=== PATIENT | male | born 1935 | race Caucasian/White ===

== ENCOUNTER 2020-04-20 11:18 | Inpatient (IN) | payer OTHER, MEDICARE ==
[2020-04-20 12:27] VITALS: BMI 25.0
[2020-04-20 13:12] LABS: Basophils % 0.5 % (0-1.3); Hematocrit 34.2 % (39.6-49.0); Lymphocytes % 24.1 % (15.3-44.8); MPV 9.3 fL (7.6-11.3)
[2020-04-20 13:40] LABS: ALT/SGPT 18 U/L (12-78); AST/SGOT 10 U/L (15-37); Albumin 3.2 g/dL (3.4-5.0); Alkaline Phosphatase 72 U/L (45-117); BUN Blood Urea Nitrogen 14 mg/dL (7-18); Bicarbonate 30 mmol/L (21-32); Bilirubin Direct 0.1 mg/dL (0-0.2); Bilirubin Total 0.5 mg/dL (0.2-1.0); Glucose Level 86 mg/dL (74-106); HDL Cholesterol 33 mg/dL (40-60); LDL, Direct 111 mg/dL (100-129); Potassium 4.6 mmol/L (3.5-5.1); Protein, Total 7.2 g/dL (6.4-8.2); Sodium Level 141 mmol/L (136-145)
[2020-04-20] MEDS: ENOXAPARIN 80 MG/0.8 ML SQ SCH ×2 (14:00→21:30)
--- NOTE | 2020-04-20 17:23 | RAD REPORT ---
EXAM DESCRIPTION: CT - Angio Aorta For Dissection - 04/20/2020 4:49 pm CLINICAL HISTORY: chest pain COMPARISON: None. TECHNIQUE: Dynamically enhanced 3 mm thick images of the chest, abdomen, and upper pelvis were obtai radha during administration of approximately 150mL Isovue 370 IV contrast. Sagittal and coronal reconst ruction images were generated using MIP and reviewed. Exam utilizes a protocol to evaluate entire cou rse of the aorta. All CT scans are performed using dose optimization technique as appropriate and may include automated exposure control or mA/KV adjustment according to patient size. FINDINGS: Ascending thoracic aorta is 3.6 x 3.7 cm in maximum dimension. The aortic arch descending thoracic junction shows a focal dilatation to 3.4 cm. Mid descending thoracic aorta is 3.0 x 3.0 cm. Abdominal aorta and iliac vessels are very tortuous. Atherosclerotic calcifications are present witho ut luminal narrowing, dissection or aneurysmal dilatation. Pulmonary arteries are normal as well. No cardiomegaly, pericardial thickening or pericardial effusio n. No mass or infiltrate in the lung parenchyma. No pleural thickening, pleural effusion or pneumothorax . Minimal scarring changes are present. No abnormal mediastinal or hilar mass or lymphadenopathy seen. No chest wall mass or abnormal axillar y lymphadenopathy. Celiac, SMA and renal arteries show no suspicious findings. No acute findings of the solid abdominal viscera. A 4 x 3 centimeter cyst is present in the left lobe of the liver. No mass or abnormal lymph adenopathy. No free air, free fluid or inflammatory stranding. No urinary bladder abnormality. Patie nt has pronounced diverticulosis of the sigmoid colon. No diverticulitis or acute GI process. Large h iatal hernia is present with approximately 30% of the stomach intrathoracic. Disc and bone degenerative changes are present. No acute or pathologic bone process. IMPRESSION: No dissection or acute aortic finding identifiable. Ascending aorta is 3.7 cm in maximum diameter. The aortic arch -descending aortic junction is 3.4 cm tapering to 3 cm in the mid thoracic aorta. Abdominal aorta and iliac vasculature are tortuous. No significant luminal narrowing or acute vascula r finding. No other significant findings on chest, abdomen and upper pelvis examination.
--- NOTE | 2020-04-20 21:49 | P.SSS ---
Patient History Date of Service: 04/20/20 Reason for admission: CHEST PAIN History of Present Illness: MR. RUIZ IS RELATIVELY HEALTHY GM WHO IS 84 YEARS OLD AND HAS CHEST PAIN FOR LAST TWO DAYS A REST. HE SAYS PAIN ACTUALLY DOES NOT HAPPEN WHEN HE DOES ACTIVITY. HE SAYS PAIN GET BETTER WHEN HE RAISES HIS HANDS ABOVE HEAD. THERE IS NO DIAPHORESIS AND NAUSEA BUT THERE IS SOME FATIGUE. Allergies Penicillins Allergy (Intermediate, Verified 09/27/11 20:17) Hives Home Medications: Aspirin Chewable [Aspirin Chewable*] 81 mg PO DAILY 04/20/20 - Past Medical/Surgical History Has patient received pneumonia vaccine in the past: No -: Enlarged protate -: TURP -: Abdominal hernia repair -: Umbilical hernia repair - Social History Smoking Status: Never smoker Review of Systems 10-point ROS is otherwise unremarkable Physical Examination - Vital Signs Temperature: 96 F Blood Pressure: 135/62 Pulse: 44 Respirations: 16 Pulse Ox (%): 99 - Physical Exam General: Alert, In no apparent distress HEENT: Atraumatic, PERRLA, Mucous membr. moist/pink, EOMI, Sclerae nonicteric Neck: Supple, 2+ carotid pulse no bruit, No LAD, Without JVD or thyroid abnormality Respiratory: Clear to auscultation bilaterally, Normal air movement Cardiovascular: Regular rate/rhythm, Normal S1 S2 Gastrointestinal: Normal bowel sounds, No tenderness Musculoskeletal: No tenderness Integumentary: No rashes Neurological: Normal gait, Normal speech, Normal strength at 5/5 x4 extr, Normal tone, Normal affect Lymphatics: No axilla or inguinal lymphadenopathy - Studies Laboratory Data (last 24 hrs) 04/20/20 21:11: Troponin I 0.08 H 04/20/20 12:55: Sodium 141, Potassium 4.6, BUN 14, Creatinine 0.80, Glucose 86, Total Bilirubin 0.5, AST 10 L, ALT 18, Alkaline Phosphatase 72, Triglycerides 53, Cholesterol 153, LDL Cholesterol Direct 111, HDL Cholesterol 33 L, Cholesterol/HDL Ratio 4.64 04/20/20 12:55: WBC 4.1 L, Hgb 11.8 L, Hct 34.2 L, Plt Count 153 04/20/20 12:55: Troponin I 0.06 H - Diagnosis (Problem(s)) (1) Atypical chest pain Current Visit: Yes Status: Acute Plan: AT THIS AGE CORONARY DISEASE IS POSSIBLE. EKG SHOWS NONSPECIFIC CHANGES. TROPONIN IS MILD HIGH. HE MAY GET ST TEST OF CATH DIRECTLY. PROGNOSIS IS GUARDED. CONT LOVENOX ASPIRIN OXYGEN. - Disposition Disposition: ROUTINE DISCHARGE
[2020-04-21] MEDS ORDERED: MAGNESIUM SULFATE 1 gm IVPB 1 GM/100 ML BAG IV ONE (01:32)
[2020-04-21] MEDS ORDERED: NA CHLORIDE 0.9% 250 ML ONE (01:54)
[2020-04-21 06:15] LABS: Absolute Lymphocytes (CBC) 0.9 K/uL (0.7-4.9); Basophils % 0.4 % (0-1.3); Hematocrit 29.8 % (39.6-49.0); Lymphocytes % 27.7 % (15.3-44.8); MPV 9.4 fL (7.6-11.3); RBC Red Blood Cell Count 3.14 M/uL (4.33-5.43)
[2020-04-21 06:34] LABS: Potassium 4.3 mmol/L (3.5-5.1); Troponin I 0.06 ng/mL (0.0-0.045)
[2020-04-21] MEDS: ASPIRIN 81 MG CHEWABLE TABLET PO SCH (08:15)
[2020-04-21] MEDS ORDERED: ASPIRIN 81 MG CHEWABLE TABLET PO SCH (09:00)
[2020-04-21] MEDS: METOPROLOL XL 25 MG TAB PO SCH (11:05)
[2020-04-21] MEDS: ISOSORBIDE MONO SR 30 MG TAB PO SCH (11:05)
[2020-04-21] MEDS: ENOXAPARIN 80 MG/0.8 ML SQ SCH ×2 (11:06→20:03)
--- NOTE | 2020-04-21 12:58 | P.PN ---
Subjective Date of Service: 04/21/20 Chief Complaint: CHEST PAIN Subjective: C/O voiced (LAST NIGHT HE HAD CHEST PAIN WITH EKG CHANGES ST ELEVATION AND INTERMITTENT V TACHY. DR CARDENAS WAS CALLED. HE IS PAINFREE NOW.) Review of Systems 10-point ROS is otherwise unremarkable Physical Examination - Vital Signs Temperature: 97.0 F Blood Pressure: 162/76 Pulse: 53 Respirations: 18 Pulse Ox (%): 99 - Physical Exam General: Mild distress HEENT: Atraumatic, PERRLA, EOMI Neck: Supple, JVD not distended Respiratory: Clear to auscultation bilaterally, Normal air movement Cardiovascular: Regular rate/rhythm, Normal S1 S2 Gastrointestinal: Normal bowel sounds, No tenderness Musculoskeletal: No tenderness Integumentary: No rashes Neurological: Normal speech, Normal tone, Normal affect Lymphatics: No axilla or inguinal lymphadenopathy - Studies Laboratory Data (last 24 hrs) 04/21/20 05:13: Magnesium 2.3 04/21/20 05:13: WBC 3.3 L D, Hgb 10.1 L, Hct 29.8 L, Plt Count 143 L 04/21/20 05:13: Sodium 140, Potassium 4.3, BUN 13, Creatinine 0.85, Glucose 82, Troponin I 0.06 H 04/20/20 21:11: Troponin I 0.08 H 04/20/20 12:55: Sodium 141, Potassium 4.6, BUN 14, Creatinine 0.80, Glucose 86, Total Bilirubin 0.5, AST 10 L, ALT 18, Alkaline Phosphatase 72, Triglycerides 53, Cholesterol 153, LDL Cholesterol Direct 111, HDL Cholesterol 33 L, Cholesterol/HDL Ratio 4.64 04/20/20 12:55: WBC 4.1 L, Hgb 11.8 L, Hct 34.2 L, Plt Count 153 04/20/20 12:55: Troponin I 0.06 H Medications List Reviewed: Yes Assessment And Plan - Current Problems (Diagnosis) (1) Atypical chest pain Current Visit: Yes Status: Acute Plan: AT THIS AGE CORONARY DISEASE IS POSSIBLE. EKG SHOWS NONSPECIFIC CHANGES. TROPONIN IS MILD HIGH. HE MAY GET ST TEST OF CATH DIRECTLY. PROGNOSIS IS GUARDED. CONT LOVENOX ASPIRIN OXYGEN. PAIN IS ATYPICAL BUT SEEMS TO ARISE FROM CORONARY ARTERY DISEASE HE HAD CHEST PAIN WITH ST ELEVATION LAST NIGHT DSEPITE BEING ON LOVENOX AND ASPIRIN. DR. León WAS CALLED. CATH ON THURSDAY.
[2020-04-22] MEDS: METOPROLOL XL 25 MG TAB PO SCH (05:31)
--- NOTE | 2020-04-22 07:38 | PN ---
Mr. Brantley was admitted on 04/20/2020 with chest pain. Overnight, on 04/20/2020, had ventricular t achycardia with ST changes, positive troponin. I saw him on 04/21/2020. I set him up for a heart ca theterization for early next week. Between Dr. Hoffman and I, we started the patient on metoprolol, Im dur, aspirin, Plavix, and a statin. Overnight, he had perfectly normal rhythm except for bradycardia , did not have any further ventricular tachycardia. Room air 98% O2 saturation. Blood pressure is 1 27/58. No further pain episode. Case has been discussed with his sons. We will plan for a heart ca theterization on 04/23/2020 to define his coronary anatomy. MARIS/KINDRA Voice ID: [id number] Report ID: [id number]
[2020-04-22] MEDS: ENOXAPARIN 80 MG/0.8 ML SQ SCH ×2 (08:10→20:03)
[2020-04-22] MEDS: ISOSORBIDE MONO SR 30 MG TAB PO SCH (08:10)
[2020-04-22] MEDS: ATORVASTATIN 40 MG TAB PO SCH (08:10)
[2020-04-22] MEDS: ASPIRIN 81 MG CHEWABLE TABLET PO SCH (08:10)
[2020-04-22] MEDS: CLOPIDOGREL 75 MG TABLET PO SCH (08:11)
--- NOTE | 2020-04-22 08:41 | CON ---
Date of Consultation: 04/21/2020 Reason For Consultation: Unstable angina. History Of Present Illness: Mr. Brantely is an 84-year-old white male, who was initially transferred from [facility] to our facility because of chest pain. He is relatively healthy. He had rathe r atypical chest pain. Denied any diaphoresis or nausea. Complains of fatigue. Ironically, he stat ed that his chest pain actually gets better when he exerts himself. He has seen Dr. Bañuelos about 2 t o 3 years ago and had a fairly negative cardiac workup. He does have a history of enlarged prostate, status post TURP. He has had a history of abdominal and umbilical hernia repair, but he is in [facility], otherwise very healthy. He had denied any syncope. However, while he was in the hospital, he clark d significant chest pain with intermittent ventricular tachycardia and some ST changes and we decided to keep him in the hospital. He is on aspirin, Plavix, statin, low-dose beta mario as well as Imd ur. Past Medical History: As stated above. Medication: Aspirin. Allergies: PENICILLIN. Review of Systems: Negative. Social History: Negative. Family History: Noncontributory. Physical Examination: Vital Signs: Stable except for heart rate of 47, in sinus cari. Afebrile. HEENT: Negative. Neck: Supple. No bruits. Chest: Clear to auscultation and percussion. Cardiac: Revealed a regular rhythm and rate. No murmurs, gallops, or rubs. Abdomen: Benign. Extremities: Revealed no clubbing, cyanosis, or edema. Diagnostic Data: Significant for a troponin of 0.06. He had a white count of 3.3, hemoglobin of 10. 1. His creatinine was 0.85. Impression And Plan: New-onset of unstable angina, mostly documented by telemetry strips showing jaziel rt runs of ventricular tachycardia with occasional ST changes. He has slightly elevated troponin. S ymptoms are kind of atypical only because his symptoms improve when he gets up and move around, that may have some to do with his bradycardia. Nevertheless, I think, at his age with his telemetry rhyth m strip showing ventricular tachycardia and chest pain and ST changes and elevated troponin. I think , a left heart catheterization to define his coronary anatomy is the right thing to do. The case was discussed in detail with his son. He has done much better from the telemetry standpoint after insti tution of metoprolol and Imdur. We will plan a catheterization on 04/23/2020. The patient understan ds the risk and the benefits of the procedure and he agrees to proceed. MARIS/KINDRA Voice ID: [id number] Report ID: [id number]
[2020-04-22] MEDS: POLYETHYL GLY 3350 17 GM/DOSE PO SCH (11:02)
--- NOTE | 2020-04-22 11:05 | P.PN ---
Subjective Date of Service: 04/22/20 Chief Complaint: CHEST PAIN Subjective: No new changes, Improving (HE HAS NOT HAD ANY PAIN SINCE PLAVIX.) Review of Systems 10-point ROS is otherwise unremarkable Physical Examination - Vital Signs Temperature: 97.0 F Blood Pressure: 156/65 Pulse: 56 Respirations: 16 Pulse Ox (%): 98 - Physical Exam General: Mild distress HEENT: Atraumatic, PERRLA, EOMI Neck: Supple, JVD not distended Respiratory: Clear to auscultation bilaterally, Normal air movement Cardiovascular: Regular rate/rhythm, Normal S1 S2 Gastrointestinal: Normal bowel sounds, No tenderness Musculoskeletal: No tenderness Integumentary: No rashes Neurological: Normal speech, Normal tone, Normal affect Lymphatics: No axilla or inguinal lymphadenopathy - Studies Medications List Reviewed: Yes Assessment And Plan - Current Problems (Diagnosis) (1) Atypical chest pain Current Visit: Yes Status: Acute Plan: AT THIS AGE CORONARY DISEASE IS POSSIBLE. EKG SHOWS NONSPECIFIC CHANGES. TROPONIN IS MILD HIGH. HE MAY GET ST TEST OF CATH DIRECTLY. PROGNOSIS IS GUARDED. CONT LOVENOX ASPIRIN OXYGEN. PAIN IS ATYPICAL BUT SEEMS TO ARISE FROM CORONARY ARTERY DISEASE HE HAD CHEST PAIN WITH ST ELEVATION LAST NIGHT DSEPITE BEING ON LOVENOX AND ASPIRIN. DR. León WAS CALLED. CATH ON THURSDAY. PATIENT IS STABLE AND WILL GET CATH IN AM.
[2020-04-23] MEDS: CLOPIDOGREL 75 MG TABLET PO SCH (05:33)
[2020-04-23] MEDS: METOPROLOL XL 25 MG TAB PO SCH (05:33)
[2020-04-23] MEDS: ASPIRIN 81 MG CHEWABLE TABLET PO SCH (05:33)
[2020-04-23] MEDS ORDERED: NA CHLORIDE 0.9% 50 ML ONE ×2 (06:11→08:15)
[2020-04-23] MEDS ORDERED: LIDOCAINE 1% MPF 30 ML VIAL ONE (06:11)
[2020-04-23] MEDS ORDERED: HEPA 1000U/500MLS 1,000 UNIT/500 ML BAG IV ONE (06:11)
[2020-04-23] MEDS ORDERED: ATROPINE SULF 1 MG/10 ML SYR IV ONE (06:11)
[2020-04-23] MEDS ORDERED: MIDAZOLAM HCL 2 MG/2 ML INJ ONE ×2 (06:52→07:07)
[2020-04-23] MEDS ORDERED: FENTANYL CITR 100 MCG/2 ML ONE (06:53)
[2020-04-23] MEDS ORDERED: NA CHLORIDE 0.9% 500 ML ONE (06:53)
[2020-04-23] MEDS ORDERED: NITROGLYCERIN/D5W 25 MG/250 ML BTL IV ONE (07:09)
[2020-04-23] MEDS ORDERED: NITROGLYCERIN 100 MCG/ML SYR (for cath lab use only) IV ONE (07:09)
[2020-04-23] MEDS ORDERED: CLOPIDOGREL 75 MG TABLET ONE (07:40)
[2020-04-23] MEDS: ISOSORBIDE MONO SR 30 MG TAB PO SCH (08:15)
[2020-04-23] MEDS: POLYETHYL GLY 3350 17 GM/DOSE PO SCH ×2 (08:15→16:00)
[2020-04-23] MEDS: ATORVASTATIN 40 MG TAB PO SCH (08:16)
[2020-04-23] MEDS ORDERED: NITROPRUSSIDE 50 MG VIAL IV ONE (08:21)
[2020-04-23] MEDS ORDERED: NITROGLYCERIN/D5W 50 MG/250 ML BTL IV ONE (08:21)
[2020-04-23] MEDS ORDERED: D5W 0 ML IV ONE (08:22)
--- NOTE | 2020-04-23 09:14 | OP ---
Date of Procedure: 04/23/2020 Surgeon: DOV GRAY Procedure Performed: 1.Selective coronary angiogram. 2.PCI of severe proximal and mid LAD using 2.75 x 16 mm Synergy drug-eluting stent distally, overlap ped proximally using 3.0 x 12 mm Synergy drug-eluting stent. Access: Right femoral artery 6-Iranian closed with 6-Iranian Angio-Seal. Indication: Non-ST elevation myocardial infarction. Total Sedation Time: 75 minutes. Complications: None. Bleeding: Less than 50 mL. Description Of Procedure: After risks, benefits, alternatives were explained, patient agreed to proc edure and signed informed consent. The patient was brought into the cardiac catheterization laborato ry, prepped and draped in usual sterile fashion. We used fentanyl and Versed in incremental doses to achieve adequate moderate sedation. Then we accessed right femoral artery using fluoroscopy and ult rasound guidance, placed a 6-Iranian pinnacle sheath using micropuncture kit and then we took a 6-Fren JL-4 catheter into the aortic root, engaged left main, took standard views and exchanged for 6-Rayo nc JR4 diagnostic catheter, engaged right coronary artery, took standard views and then we decided f or intervention for the LAD. Intervention Details: We gave Angiomax throughout the procedure for anticoagulation and the patient was loaded with 300 mg of Plavix on the table. We took a 6-Iranian XB left 3.0 guide into the aortic root and engaged left main. Subsequently, we took a Trevino wire into the left main coronary artery and then LAD crossing the stenosis and a wire was placed distally. Then, we pre-dilated the mid LAD lesion using a 2.5 x 50 mm Compliant balloon and then pre-dilated the proximal lesion. Subsequently, we took a 3.0 x 50 mm NC balloon and we dilated both lesions and attempted to deliver stent. Mallory r, proximal lesion was still heavily calcified and it had a significant bend and tortuosity area and we took a 3.0 x 10 mm cutting balloon, Yovana soto and pre-dilated the proximal lesion. We had to use a guide cell to deliver the balloon and for extra support. Subsequently, we took a 2.75 x 16 mm Synergy drug-eluting stent, passed into the mid LAD lesion and the stent was deployed successf ully. Then, we took 3.0 x 12 mm Synergy drug-eluting stent overlapped with the mid LAD stent and dep loyed in the proximal lesion with DARNELL-3 flow and 10% residual stenosis in the proximal lesion with g ood results. There was some spasm in the artery, responded very well to nitroglycerin. I removed th e wire and the guide out and closed the access with a 6-Iranian Angio-Seal with good hemostasis. Findings: 1.Left main proximal 30%. 2.LAD proximal 90% heavily calcified and tortuous, mid 99%, heavily calcified, then diffuse 30% dise ase. 3.D1 has ostial 80%, D2 has ostial 80% and S1 has ostial 80%. 4.Left circumflex probably totally occluded. This has good size OM branch with mid 80% heavily calc ified. 5.RCA heavily calcified vessel with proximal 80%, mid 30% to 40%, distal 60% and then diffuse stent to 20% stenosis throughout the vessel. Impression: Severe multivessel coronary artery disease, heavily calcified and tortuous, status post successful PCI of the culprit lesion of the LAD, 99% mid LAD stenosis and 90% proximal LAD stenosis a nd using stents as outlined above. Recommendation And Plan: 1.Dual antiplatelet therapy, statin, IV nitroglycerin overnight due to coronary spasm. 2.Recommend staged PCI of the RCA and OM. He might need an atherectomy from the get go. This can be planned as a staged procedure. /KINDRA Voice ID: [id number] Report ID: [id number]
[2020-04-23] MEDS ORDERED: NITROGLYCERIN/D5W 50 MG/250 ML BTL IV PRN (10:39)
--- NOTE | 2020-04-23 15:02 | ECHO ---
HEIGHT: 5 ft 8 in WEIGHT: 164 lb 8 oz DATE OF STUDY: 04/23/[address]: Altaf Arriaga MD 2-DIMENSIONAL: YES M.MODE: YES DOPPLER: YES COLOR FLOW: YES TDS: PORTABLE: DEFINITY: BUBBLE STUDY: DIAGNOSIS: CHEST PAIN CARDIAC HISTORY: CATHERIZATION: SURGERY: PROSTHETIC VALVE: PACEMAKER: MEASUREMENTS (cm) DIASTOLIC (NORMALS) SYSTOLIC (NORMALS) IVSd 1.1 (0.6-1.2) LA Diam 4.0 (1.9-4.0) LVEF 58% LVIDd 4.8 (3.5-5.7) LVIDs 3.3 (2.0-3.5) %FS 31% LVPWd 1.0 (0.6-1.2) Ao Diam 3.3 (2.0-3.7) 2 DIMENSIONAL ASSESSMENT: RIGHT ATRIUM: NORMAL LEFT ATRIUM: ENLARGED RIGHT VENTRICLE: NORMAL LEFT VENTRICLE: NORMAL TRICUSPID VALVE: MILD TRICUSPID REGURGITATION MITRAL VALVE: MILD MITRAL REGURGITATION PULMONIC VALVE: NORMAL AORTIC VALVE: NORMAL PERICARDIAL EFFUSION: NONE AORTIC ROOT: NORMAL LEFT VENTRICULAR WALL MOTION: NORMAL DOPPLER/COLOR FLOW: NORMAL COMMENTS: NORMAL LEFT VENTRICULAR EJECTION FRACTION 55-60% WITH NORMAL WALL MOTION. GRADE ONE DIASTOLIC DYSFUNCTION. MILD TRICUSPID REGURGITATION. TECHNOLOGIST: DOLORES ORTIZ
[2020-04-23] MEDS ORDERED: POLYETHYL GLY 3350 17 GM/DOSE ONE (16:24)
[2020-04-23] MEDS: AMLODIPINE 5 MG TAB PO SCH (16:35)
[2020-04-23] MEDS ORDERED: AMLODIPINE 5 MG TAB ONE (16:53)
--- NOTE | 2020-04-23 20:55 | P.PN ---
Subjective Date of Service: 04/23/20 Chief Complaint: CHEST PAIN ANGIOGRAM DONE TODAY. TWO STENTS PLACED. NOW IN ICU FOR OBSERVATION IV NTG DRIP. BP CONTROL. Physical Examination - Vital Signs Temperature: 98.1 F Blood Pressure: 128/60 Pulse: 64 Respirations: 22 Pulse Ox (%): 97 - Studies Medications List Reviewed: Yes Assessment And Plan - Current Problems (Diagnosis) (1) Atypical chest pain Current Visit: Yes Status: Acute Plan: AT THIS AGE CORONARY DISEASE IS POSSIBLE. EKG SHOWS NONSPECIFIC CHANGES. TROPONIN IS MILD HIGH. HE MAY GET ST TEST OF CATH DIRECTLY. PROGNOSIS IS GUARDED. CONT LOVENOX ASPIRIN OXYGEN. PAIN IS ATYPICAL BUT SEEMS TO ARISE FROM CORONARY ARTERY DISEASE HE HAD CHEST PAIN WITH ST ELEVATION LAST NIGHT DSEPITE BEING ON LOVENOX AND ASPIRIN. DR. León WAS CALLED. CATH ON THURSDAY. PATIENT IS STABLE AND WILL GET CATH IN AM. (2) Coronary arteriosclerosis after percutaneous transluminal coronary angioplasty (PTCA) Current Visit: Yes Status: Acute Plan: TWO STENTS PLACED. PLAVIX, LIPITOR NORVASC BP WENT HIGH. Orders (last 24 hrs) 04/23/20 09:00 Polyethyl Gly 3350 [Glycolax] 17 gm PO DAILY 04/24/20 09:00 Amlodipine [Norvasc] 5 mg PO DAILY
[2020-04-24] MEDS: METOPROLOL XL 25 MG TAB PO SCH (05:07)
[2020-04-24 06:11] VITALS: TEMP 97.6
[2020-04-24 08:00] VITALS: O2SAT 98
[2020-04-24] MEDS: ATORVASTATIN 40 MG TAB PO SCH (08:09)
[2020-04-24] MEDS: CLOPIDOGREL 75 MG TABLET PO SCH (08:09)
[2020-04-24] MEDS: POLYETHYL GLY 3350 17 GM/DOSE PO SCH (08:09)
[2020-04-24] MEDS ORDERED: ATORVASTATIN 20 MG TAB ONE (08:12)
[2020-04-24] MEDS ORDERED: CLOPIDOGREL 75 MG TABLET ONE (08:12)
[2020-04-24] MEDS ORDERED: ASPIRIN 81 MG CHEWABLE TABLET ONE (08:12)
[2020-04-24] MEDS ORDERED: POLYETHYL GLY 3350 17 GM/DOSE ONE (08:13)
[2020-04-24] MEDS: ASPIRIN 81 MG CHEWABLE TABLET PO SCH (08:21)
[2020-04-24] MEDS: ISOSORBIDE MONO SR 30 MG TAB PO SCH (08:22)
[2020-04-24] MEDS: AMLODIPINE 5 MG TAB PO SCH (08:22)
[2020-04-24] MEDS ORDERED: AMLODIPINE 5 MG TAB ONE (08:29)
[2020-04-24 10:24] VITALS: BP 108/56
--- NOTE | 2020-04-24 20:58 | P.DS ---
Admission Date: 04/20/20 Discharge Date: 04/24/20 Disposition: ROUTINE DISCHARGE Discharge Condition: FAIR Reason for Admission: CHEST PAIN - Problems (1) Atypical chest pain Status: Acute (2) Coronary arteriosclerosis after percutaneous transluminal coronary angioplasty (PTCA) Status: Acute Brief History of Present Illness: MR. RUIZ IS RELATIVELY HEALTHY GM WHO IS 84 YEARS OLD AND HAS CHEST PAIN FOR LAST TWO DAYS A REST. HE SAYS PAIN ACTUALLY DOES NOT HAPPEN WHEN HE DOES ACTIVITY. HE SAYS PAIN GET BETTER WHEN HE RAISES HIS HANDS ABOVE HEAD. THERE IS NO DIAPHORESIS AND NAUSEA BUT THERE IS SOME FATIGUE. Hospital Course: MR. RUIZ HAS HAD TWO STENTS FOR CAD. HE IS STABLE ON ASPIRIN, PLAVIX, LIP ITOR AND METOPROLOL. HIS BP WENT LOW WITH NORVASC. HE IS STABLE AT DISCHARGE. Vital Signs/Physical Exam: Temp Pulse Resp BP Pulse Ox 97.6 F 71 20 108/56 L 98 04/24/20 04:00 04/24/20 09:30 04/24/20 09:30 04/24/20 09:30 04/24/20 09:30 General: Alert, In no apparent distress HEENT: Atraumatic, PERRLA, EOMI Neck: Supple, JVD not distended Respiratory: Clear to auscultation bilaterally, Normal air movement Cardiovascular: Regular rate/rhythm, Normal S1 S2 Gastrointestinal: Normal bowel sounds, No tenderness Musculoskeletal: No tenderness Integumentary: No rashes Neurological: Normal speech, Normal tone, Normal affect Lymphatics: No axilla or inguinal lymphadenopathy Laboratory Data at Discharge: WBC 3.3 K/uL (4.3-10.9) L D 04/21/20 05:13 Hgb 10.1 g/dL (13.6-17.9) L 04/21/20 05:13 Hct 29.8 % (39.6-49.0) L 04/21/20 05:13 Plt Count 143 K/uL (152-406) L 04/21/20 05:13 Sodium 140 mmol/L (136-145) 04/21/20 05:13 Potassium 4.3 mmol/L (3.5-5.1) 04/21/20 05:13 BUN 13 mg/dL (7-18) 04/21/20 05:13 Creatinine 0.85 mg/dL (0.55-1.3) 04/21/20 05:13 Glucose 82 mg/dL (74-106) 04/21/20 05:13 Magnesium 2.3 mg/dL (1.8-2.4) 04/21/20 05:13 Total Bilirubin 0.5 mg/dL (0.2-1.0) 04/20/20 12:55 AST 10 U/L (15-37) L 04/20/20 12:55 ALT 18 U/L (12-78) 04/20/20 12:55 Alkaline Phosphatase 72 U/L (45-117) 04/20/20 12:55 Troponin I 0.06 ng/mL (0.0-0.045) H 04/21/20 05:13 Triglycerides 53 mg/dL (<150) 04/20/20 12:55 Cholesterol 153 mg/dL (<200) 04/20/20 12:55 LDL Cholesterol Direct 111 mg/dL (100-129) 04/20/20 12:55 HDL Cholesterol 33 mg/dL (40-60) L 04/20/20 12:55 Cholesterol/HDL Ratio 4.64 04/20/20 12:55 Home Medications: Aspirin Chewable [Aspirin Chewable*] 81 mg PO DAILY 04/20/20 Atorvastatin Calcium [Lipitor] 80 mg PO BEDTIME #30 tablet 04/24/20 Clopidogrel Bisulfate [Plavix] 75 mg PO DAILY #30 tablet 04/24/20 Metoprolol Succinate [Toprol Xl*] 25 mg PO DAILY #30 tab 04/24/20 New Medications: Atorvastatin Calcium [Lipitor] 80 mg PO BEDTIME #30 tablet Clopidogrel Bisulfate [Plavix] 75 mg PO DAILY #30 tablet Metoprolol Succinate [Toprol Xl*] 25 mg PO DAILY #30 tab
== END 2020-04-24 09:50 | disposition home or self-care (01) | DRG 247 ==
LOC: 2ND 11:18 → OBSVTOIN 11:18 → ERHOLD 04-23 13:31
PROVIDERS: ADMIT Internal Medicine; ATTEND Internal Medicine
PROC: 027035Z Dilation of Coronary Artery, One Artery with Two Drug-eluting Intraluminal Devices, Percutaneous Approach (ICD-10-PCS; principal; 2020-04-23)
PROC: 4A023N7 Measurement of Cardiac Sampling and Pressure, Left Heart, Percutaneous Approach (ICD-10-PCS; 2020-04-23)
PROC: B2111ZZ Fluoroscopy of Multiple Coronary Arteries using Low Osmolar Contrast (ICD-10-PCS; 2020-04-23)
DX: I25.110 Atherosclerotic heart disease of native coronary artery with unstable angina pectoris (principal); I47.2 Ventricular tachycardia; Z88.0 Allergy status to penicillin; Z79.82 Long term (current) use of aspirin; Z79.02 Long term (current) use of antithrombotics/antiplatelets; Z79.899 Other long term (current) drug therapy
CPT/HCPCS: 36415; 71275; 74175; 80048; 80061; 80076; 83735; 84484; 85025; 85347; 93005; 93306; 93454; C1725; C1760; C1877; C1893; C9600; J0583; J1644; J2250; J3010; J3475; J7040; J7050; J7060; Q9967

== ENCOUNTER 2020-08-27 07:27 | Day surgery (SDC) | payer OTHER, MEDICARE ==
[2020-08-23 16:36] LABS: Absolute Lymphocytes (CBC) 0.7 K/uL (0.7-4.9); Basophils % 0.4 % (0-1.3); Hematocrit 35.2 % (39.6-49.0); Lymphocytes % 17.3 % (15.3-44.8); MPV 9.2 fL (7.6-11.3); RBC Red Blood Cell Count 3.72 M/uL (4.33-5.43)
[2020-08-23 16:37] LABS: Protime INR 1.09
--- NOTE | 2020-08-23 17:32 | RAD REPORT ---
EXAM DESCRIPTION: RAD - Chest Pa And Lat (2 Views) - 08/23/2020 5:10 pm CLINICAL HISTORY: PREOP, pending coronary stenting COMPARISON: Two view chest July 2015 TECHNIQUE: Frontal and lateral views of the chest were obtained. FINDINGS: The lungs are normal volume with scattered fibro emphysematous lung changes seen. No failu re, infiltrate or acute cardiopulmonary finding. Interstitial pattern matches comparison. Diaphragm i s flattened. Heart size is normal and central vasculature is within normal limits. No pleural effu ananth or pneumothorax seen. No acute bony finding noted. No aortic abnormality. IMPRESSION: COPD changes are present without acute cardiopulmonary finding. No significant change from comparison study.
--- NOTE | 2020-08-24 15:03 | EKG ---
Test Date: 2020-08-23 Test Time: 15:02:20 Entry Level Electrician: NAFISA MEASUREMENT RESULTS: Intervals: Rate: 59 WA: 170 QRSD: 82 QT: 416 QTc: 411 [place]kins: P: 76 WA: 170 QRS: 54 T: 62 INTERPRETIVE STATEMENTS: Sinus bradycardia with sinus arrhythmia ST abnormality, possible digitalis effect Abnormal ECG Compared to ECG 04/21/2020 01:12:04 Possible ischemia no longer present ST (T wave) deviation still present Electronically Signed On 08-24-20 15:01:54 CDT by Altaf Arriaga
[2020-08-27] MEDS ORDERED: NA CHLORIDE 0.9% 500 ML ONE (07:47)
[2020-08-27 08:12] VITALS: TEMP 96.3
[2020-08-27] MEDS ORDERED: MIDAZOLAM HCL 2 MG/2 ML INJ ONE ×2 (08:28→08:54)
[2020-08-27] MEDS ORDERED: NITROGLYCERIN/D5W 0 MG/0 ML BTL IV ONE (08:29)
[2020-08-27] MEDS ORDERED: ATROPINE SULF 1 MG/10 ML SYR IV ONE (08:29)
[2020-08-27] MEDS ORDERED: FENTANYL CITR 100 MCG/2 ML ONE (08:29)
[2020-08-27] MEDS ORDERED: NA CHLORIDE 0.9% 0 ML ONE (08:30)
[2020-08-27 15:46] VITALS: BP 142/60; O2SAT 98
== END 2020-08-27 15:35 | disposition home or self-care (01) ==
LOC: CCL 07:27
DX: I25.110 Atherosclerotic heart disease of native coronary artery with unstable angina pectoris (principal); Z53.8 Procedure and treatment not carried out for other reasons; I65.23 Occlusion and stenosis of bilateral carotid arteries; I10 Essential (primary) hypertension; R00.1 Bradycardia, unspecified; E78.2 Mixed hyperlipidemia; Z88.0 Allergy status to penicillin; Z20.822 Contact with and (suspected) exposure to COVID-19
CPT/HCPCS: 93005; 85025; 80048; 36415; 85610; 85730; 71046; U0003; J2250 ×2; J3010; J7040; J0583

== ENCOUNTER 2020-09-03 08:24 | Day surgery (SDC) | payer OTHER, MEDICARE ==
[2020-09-03] MEDS ORDERED: NA CHLORIDE 0.9% 500 ML ONE (08:47)
[2020-09-03] MEDS ORDERED: HEPA 1000U/500MLS 1,000 UNIT/500 ML BAG IV ONE (10:09)
[2020-09-03] MEDS ORDERED: MIDAZOLAM HCL 2 MG/2 ML INJ ONE ×2 (10:14→10:37)
[2020-09-03] MEDS ORDERED: NA CHLORIDE 0.9% 0 ML ONE (10:14)
[2020-09-03] MEDS ORDERED: ATROPINE SULF 1 MG/10 ML SYR IV ONE (10:14)
[2020-09-03] MEDS ORDERED: FENTANYL CITR 100 MCG/2 ML ONE (10:14)
[2020-09-03] MEDS ORDERED: NITROGLYCERIN 100 MCG/ML SYR (for cath lab use only) IV ONE (10:14)
[2020-09-03] MEDS ORDERED: NITROGLYCERIN/D5W 0 MG/0 ML BTL IV ONE (10:14)
[2020-09-03 11:21] VITALS: TEMP 97.5
--- NOTE | 2020-09-03 11:22 | OP ---
Date of Procedure: 09/03/2020 Surgeon: Altaf Arriaga MD Powderman: Alfie Betancur. Procedure: Heart catheterization with selective coronary arteriogram. Indication: Unstable angina, chest pain, and history of coronary artery disease. Procedure In Detail: In the laborer road, he was prepped and draped in routine sterile fashion. A 6-Rayo formerly [facility] sheath introduced in the right common femoral artery successfully using the Seldinger technique a nd 10 cc of Xylocaine. A JR4 catheter was introduced first secondary to severe tortuosity in the chandra ac arteries and the distal aorta. This was used to cannulate the RCA, which showed some [id number] rate disease in the proximal and distal RCA, probably 30% to 40%. The JL-4 was used then to inject t he left main and that showed about a 50%, ostial left main is 50%, ostial LAD is 70%, in-stent resten osis in the proximal to mid LAD, normal circumflex. He was right dominant. There were no complicati ons. Blood Loss: 5 mL. Postoperative Diagnosis: Severe coronary artery disease. Plan: I will plan for him to have a MONTGOMERY to the LAD. Anesthesia: Total conscious sedation was 45 minutes. MARIS/MODAndrea Voice ID: [id number] Report ID: [id number]
[2020-09-03 13:11] VITALS: BP 113/56; O2SAT 99
== END 2020-09-03 13:20 | disposition home or self-care (01) ==
LOC: CCL 08:24
DX: I25.110 Atherosclerotic heart disease of native coronary artery with unstable angina pectoris (principal); T82.855A Stenosis of coronary artery stent, initial encounter; I65.23 Occlusion and stenosis of bilateral carotid arteries; I11.0 Hypertensive heart disease with heart failure; E78.2 Mixed hyperlipidemia; R00.1 Bradycardia, unspecified
CPT/HCPCS: 93454; C1893; J2250 ×2; J3010; J7040; J1644; J0583

== ENCOUNTER 2021-05-21 15:50 | Emergency (ER) | payer OTHER, MEDICARE ==
--- OUTSIDE RECORDS SUMMARY | 2021-05-21 15:54 | XMS REPORT | Continuity of Care Document ---
:[address] [facility] t Address [address] [place] [address] Care Team Providers Name Role Phone Yasmin Arcos Primary Care Physician ABRAM HASSAN Attending Clinician Unavailable Nurse, Pob Immunization Attending Clinician Unavailable Hadley Hernandez DO Attending Clinician HADLEY HERNANDEZ Attending Clinician Unavailable Les LOPEZ Attending Clinician Doctor Unassigned, Name Attending Clinician Unavailable ABRAM HASSAN Admitting Clinician Unavailable Payers Payer Name Policy Type Policy Number Effective Date Expiration Date S evangelina MEDICARE PART A \T\ [id number] 1998 B 00:00:00 [facility] [id number] 2018 MEDICARE SUPPLEMENT 00:00:00 MEDICARE A B [id number] 1998 00:00:00 [facility] [id number] 2020 HEALTHCARE 00:00:00 Problems Condition Condition Condition Status Onset Resolution Last Treating Co mments Source Name Details Category Date Date Treatment Clinician Date Sinus Sinus Disease Active Univers bradycardi bradycardi 8- it y of a a 00:00: [place] 00 Medical Branch Pneumonia Pneumonia Disease Active Uni vers due to due to 12-31 ity of COVID-19 COVID-19 00:00: [place] virus virus 00 Medical Branch Acute on Acute on Disease Active 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:00: Rowena mosqueda 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 00:00: [place] involving involving 00 Medi zuleima coronary 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 of kasaan kasaan heart heart without without angina angina pectoris pectoris 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 8 ity of natriure[place] c peptide c peptide 00 Medi zuleima (BNP) (BNP) Branch level level Essential Essential Disease Active Uni vers hypertensi hypertensi 12-30 it y of on on 00:00: [place] 00 Medical Branch Dyslipidem Dyslipidem Disease Active U nivers ia ia 12-30 ity of 00:00: Medical Branch 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 00 Medical fibrillati fibrillati Br anch on on Acute Acute Disease Active [facility] [facility] respirator respirator 7 it y of y failure y failure 00:00: Rowena mosqueda with with 00 Medical hypoxia hypoxia Branch Heart Problem Resolve 2020-11-22 Paras deonna disease d 00:41:47 l (disorder) Heart Melanie nn disease (disorder) Resolved Problem 11/22/2020 Medical Group Hyperchole Problem Resolve 2020-11-22 Memoria sterolemia d 00:41:47 l (disorder) Mamadou n Hyperchole sterolemia (disorder) Resolved Problem 11/22/2020 Medical Group Hypertensi Problem Resolve 2020-11-22 Memoria ve d 00:41:47 l disorder, Eyal systemic Hypertensi arterial ve (disorder) disorder, systemic arterial (disorder) Resolved Problem 11/22/2020 Medical Group Allergies, Adverse Reactions, Alerts Allergy Allergy Status Severity Reaction(s) Onset Inactive Treating Comm ents Source Name Type Date Date Clinician [facility] Allergy Active [facility]ives [facility] Drug Active Hives Univers INS Class 5-15 ity of 00:00: [place] 00 Medical Branch Penicill Propensi Active Hives Univer s ins ty to 5-15 ity of adverse 00:00: [place] reaction 00 Medical s Branch NO KNOWN Allergy Active [facility]ERGIE S penicill penicill Active Memori a ins ins l [place] Social History Social Habit Start Date Stop Date Quantity Comments Source Alcohol intake 2019-01-11 2019-01-11 Current University of 00:00:00 00:00:00 non-drinker of [facility] alcohol Branch (finding) Tobacco use and 2018-10-13 2018-10-13 Never used Universit y of exposure 00:00:00 00:00:00 [facility] Sex Assigned At [birth year] Universit y of 00:00:00 00:00:00 [facility] Smoking Status Start Date Stop Date Source Social History [facility] Medications Ordered Filled Start Stop Current Ordering Indication Dosage Frequency Signature Comments Components Source Medication Medication Date Date Medication? Clinician (SIG) Name Name mirabegron Yes Take by Uni vers (MYRBETRIQ) 8-13 mouth ity of 25 mg 18:08: daily. [place] tablet Medical Branch aspirin 81 Yes 81mg Take 81 mg U nivers mg chewable 8-13 by mouth ity of tablet 18:08: daily. [place] [address] Medical Branch rosuvastati Yes 20mg Take 20 mg Univers n 20 mg 8-13 by mouth ity of tablet 18:08: at [place] [address] bedtime. Medical Branch ferrous Yes 325mg Take 325 Unive rs sulfate 8-13 mg by ity of (IRON) 325 18:08: mouth [place] mg (65 mg 42 daily. Medical iron) Branch tablet folic Yes Take by Univers acid/multiv 8-13 mouth. ity of it-min/lute 18:08: [place] in (CENTRUM 42 Medical SILVER Branch ORAL) albuterol Yes 2{puff} Inhale 2 U nivers 90 8-13 Puffs ity of mcg/actuati 18:08: every 6 Jack as on inhaler 42 (six) Medical hours as Branch needed for Wheezing or Shortness of Breath. ascorbic Yes [id number] 500mg Take 1 Univers acid, 8-13 [id number] tablet by ity of vitamin C, 00:00: mouth [place] 500 mg 00 daily. Medical tablet Branch cholecalcif Yes [id number] 1000U Take 1 Univers shannon, 01-11 [id number] tablet by ity of vitamin D3, 00:00: mouth [place] 25 mcg 00 daily. Medical (1,000 Branch unit) tablet magnesium Yes [id number] 30mL Take 30 mL Univers hydroxide 8 [id number] by mouth 3 i ty of 400 mg/5 mL 00:00: (three) Jack as suspension 00 times Medical daily as Branch needed for Constipati on. 24 HR Yes 25 mg = 1 Memoria mirabegron 6-21 tab, PO, l 25 MG 13:52: Daily, # [place] Extended 00 30 tab, 5 Release Refill(s), Tablet Pharmacy: [Kassandra] [id number], 172.72, cm, 11/19/20 8:29:00 CDT, Height, 68.636, kg, 11/19/20 8:29:00 CDT, Weight Immunizations Ordered Filled Immunization Date Status Comments [facility] e Immunization Name Name SARS-COV-2 COVID-19 2021-04-29 Completed Unive rsity of MODERNA BOOSTER 00:00:00 [place] Med ical VACCINE Branch Vital Signs Vital Name Observation Time Observation Value Comments Source HEIGHT 2020-09-13 06:00:00 172.7 cm WEIGHT 2020-09-13 06:00:00 72.712 kg HEIGHT 2020-09-12 09:15:00 172.7 cm WEIGHT 2020-09-12 09:15:00 72.122 kg HEIGHT 2021-04-16 09:12:00 172.7 cm WEIGHT 2021-04-16 09:12:00 72.712 kg HEIGHT 2021-04-16 09:12:00 172.7 cm WEIGHT 2021-04-16 09:12:00 72.712 kg HEIGHT 2021-04-09 09:49:00 172.7 cm WEIGHT 2021-04-09 09:49:00 71.215 kg HEIGHT 2021-04-09 09:49:00 172.7 cm WEIGHT 2021-04-09 09:49:00 71.215 kg HEIGHT 2020-09-13 06:00:00 172.7 cm WEIGHT 2020-09-13 06:00:00 72.712 kg HEIGHT 2020-09-12 09:15:00 172.7 cm WEIGHT 2020-09-12 09:15:00 72.122 kg HEIGHT 2020-09-10 09:40:00 172.7 cm WEIGHT 2020-09-10 09:40:00 72.122 kg HEIGHT 2020-09-10 09:40:00 172.7 cm WEIGHT 2020-09-10 09:40:00 72.122 kg HEIGHT 2020-09-04 10:00:00 174 cm WEIGHT 2020-09-04 10:00:00 73.619 kg Height 2020-11-19 13:29:00 172.72 cm [facility] Weight 2020-11-19 13:29:00 [facility] BMI Calculated 2020-11-19 13:29:00 Lulu Astudillo Procedures Procedure Date / Time Performing Clinician Source Performed SARS-COV-2 COVID-19 2021-04-29 17:45:38 Doctor Unassigned, No [facility] [place] VACCINE Name [facility] BOOSTER,0.25ML,IM (MODERNA) Hernia repair [facility] TURP - Transurethral [facility] resection of prostate CABG - Coronary artery [facility] bypass graft Encounters Start End Encounter Admission Attending Care Care Encounter Source Date/Time Date/Time Type Type Clinicians Facility Department ID 2021-04-01 Emergency [facility] [id number] Univers 12:11:21 [facility] 2021-03-09 Inpatient KEVIN HASSAN Surgery [id number] [facility] 12:22:56 [place] 2021-04-29 2021-04-29 Imm/Inj Nurse, Adc Pob Immunization [facility] [id number] Univers 10:29:54 10:30:03 [id number] Rowena WALKER [id number] Ne dical [address] 2021-04-29 2021-04-29 Outpatient Gene HERNANDEZ [facility] [id number] Univers 10:30:00 10:30:00 MARQUIS itharjit [facility] 2021-04-16 2021-04-16 Outpatient [facility] [id number] 08:49:00 23:59:00 [place] 2021-04-16 2021-04-16 Inpatient KEVIN HURT Surgery [id number] [facility] 08:49:00 15:08:00 [place] 2021-04-09 2021-04-09 Outpatient MARCO ANTONIO BROWN [facility] [id number] [facility] 13:30:10 23:59:00 2021-04-09 2021-04-09 Outpatient KEVIN HURT [facility] [id number] [facility] 10:23:03 10:23:03 N[place] 2021-02-18 2021-02-[address] [facility] [id number] Memoria 08:30:00 08:30:00 02 l Eyal 2020-11-19 2020-11-20 Outpatient nullFlavo MG Multi 55 [id number] Memoria 13:30:00 04:59:59 r Specialty 01 l [facility] 2020-10-03 2020-10-03 Outpatient KEVIN HURT [facility] [id number] [facility] 00:00:00 00:00:00 2020-09-12 2020-09-12 Outpatient MARCO ANTONIO MAX [facility] [id number] [facility] 00:00:00 00:00:00 2020-09-10 2020-09-10 Outpatient KEVIN HASSAN [facility] [id number] [facility] 00:00:00 00:00:00 [place] 2020-09-10 2020-09-10 Outpatient MARCO ANTONIO MAX [facility] [id number] [facility] 00:00:00 00:00:00 2020-09-04 2020-09-04 Outpatient KEVIN HURT [facility] [id number] [facility] 00:00:00 00:00:00 [place] 2019-01-11 2019-01-11 Office TED Saldana [id number] 08:26:40 08:50:41 Visit Kaylene Mane [id number] Jerilyn 4.2.7.2.686 Jane [id number] [address] 2019-01-10 2019-01-10 Orders Doctor CHAVEZ [id number] 00:00:00 00:00:00 Only Unassigned, AMIE 350.1.13.10 [facility] 4.2.7.2.686 [id number] Results Test Description Test Time Test Comments Results Result Comments Source CALCIUM, IONIZED 2021-04-16 13:46:30 Test Item Value Reference Range Interpretation Comme nts CALCIUM IONIZED (BEAKER) (test code = 698) 1.07 mmol/L 1.12-1.27 L PH, BLOOD (BEAKER) (test code = 1810) 7.40 HGB/HCT (H&H) - STAT [id number] 13:46:29 Test Item Value Reference Range Interpretation Comments HEMOGLOBIN (BEAKER) (test code = 12.1 GM/DL 13.0-16.8 L 410) HEMATOCRIT (BEAKER) (test code = 36.0 % 40.0-50.0 L 411) POTASSIUM-STAT [id number] 13:46:06 Test Item Value Reference Range Interpretation Comments POTASSIUM (BEAKER) (test code = 4.4 meq/L 3.6-5.5 379) GLUCOSE-STAT [id number] 13:46:04 Test Item Value Reference Range Interpretation Comments GLUCOSE RANDOM (BEAKER) (test code 110 mg/dL 70-110 = 652) SODIUM NA-STAT [id number] 13:46:04 Test Item Value Reference Range Interpretation Comments SODIUM (BEAKER) (test code = 381) 137 meq/L 136-145 SARS-COV2/RT-PCR ([facility])2021-04-09 20:35:48 Test Item Value Reference Range Interpretation Comments SARS-COV2/RT-PCR (test code = Negative Negative [id number]) Negative result for this test determines that SARS-CoV-2 RNA was not present in the specimen above the Limit of Detection (LOD). However, Negative results do not preclude SARS-CoV-2 infection and should not be used as the sole basis for treatment or patient management decisions. Negative results must be combined with clinical observations, patient history, and epidemiological information. A false negative result may occur if a specimen is improperly collected, transported, or handled. A false negative result should be considered if patient's recent exposures or clinical presentation indicate that COVID-19 (SARS-CoV-2) is likely and diagnostic tests for other causes of illness are negative. Re-testing should be considered in cases of suspected false negatives.The limit of detection for this assay is 100 copies/mL.This SARS-CoV-2 test is a real-time RT_PCR test intended for the qualitative detection of nucleic acid from SARS-CoV-2 in a nasopharyngeal swab specimen collected from individuals suspected of COVID-19 by their healthcare provider.This test has not been Food and Drug Administration (FDA) cleared or approved. This is a modified version of an approved Emergency Use Authorization (EUA) and is in the process of review by the FDA. Once authorized by the FDA, the issued EUA will be effective until the declaration that circumstances exist justifying the authorization of the emergency use of in vitro diagnostic tests for detection and/or diagnosis of COVID-19 is terminated under Section 564(b)(2) of the Act or the EUA is revoked under Section 564(g) of the Act.Testing was performedusing the Parekh SARS-CoV-2 assay.Fact Sheet for Healthcare Providers:https://www.[employer].ScreenHits/karla/RT SARS-CoV-2 HCP Fact Sheet 51- 273365.pdfFact Sheet for Healthcare Patients:https://www.[employer].parekh/karla/RT SARS-CoV-2 Patient Fact Sheet EN 51-820560S4.pdfCOMPREHENSIVE METABOLIC PANEL 2021-04-09 11:26:31 Test Item Value Reference Range Interpretation Comments TOTAL PROTEIN 7.5 gm/dL 6.0-8.3 (BEAKER) (test code = 770) ALBUMIN (BEAKER) 3.6 g/dL 3.5-5.0 (test code = 1145) ALKALINE PHOSPHATASE 91 U/L 40-150 (BEAKER) (test code = 346) BILIRUBIN TOTAL 0.5 mg/dL 0.2-1.2 (BEAKER) (test code = 377) SODIUM (BEAKER) (test 140 meq/L 136-145 code = 381) POTASSIUM (BEAKER) 4.3 meq/L 3.5-5.1 (test code = 379) CHLORIDE (BEAKER) 105 meq/L 98-107 (test code = 382) CO2 (BEAKER) (test 26 meq/L 22-29 code = 355) BLOOD UREA NITROGEN 18 mg/dL 7-21 (BEAKER) (test code = 354) CREATININE (BEAKER) 0.88 mg/dL 0.57-1.25 (test code = 358) GLUCOSE RANDOM 91 mg/dL 70-105 (BEAKER) (test code = 652) CALCIUM (BEAKER) 9.3 mg/dL 8.4-10.2 (test code = 697) AST (SGOT) (BEAKER) 17 U/L 5-34 (test code = 353) ALT (SGPT) (BEAKER) 21 U/L 6-55 (test code = 347) EGFR (BEAKER) (test 82 mL/min/1.73 ESTIMA SAM GFR IS code = 1092) sq m NOT ACCURATE CREATININE CLEARANCE IN PREDICTING GLOMERULAR FILTRATION RATE . ESTIMATED GFR I S NOT APPLICABLE FOR DIALYSIS PATIEN TS. Powder Room Attendant ID - DAVID MPROTHROMBIN [id number] 11:13:50 Test Item Value Reference Range Interpretation Comments PROTIME (BEAKER) 13.7 seconds 11.9-14.2 (test code = 759) INR (BEAKER) (test 1.07 See_Comment [Automat ed message] code = 370) The system [employer] generated this result transmitted ref erence range: <=5.90. The reference range was not used to int erpret this result as normal/abnormal . RECOMMENDED COUMADIN/WARFARIN INR THERAPY RANGESSTANDARD DOSE: 2.0 - 3.0 Includes: PROPHYLAXIS forvenous thrombosis, systemic embolization; TREATMENT for venous thrombosis and/or pulmonary embolus.HIGH RISK: Target INR is 2.5-3.5 for patients with mechanical heart valves.CBC W/PLT COUNT & AUTO DIFFERENTIAL 2021-04-09 11:09:41 Test Item Value Reference Range Interpretation Comments WHITE BLOOD CELL COUNT (BEAKER) 5.0 K/ L 3.5-10.5 (test code = 775) RED BLOOD CELL COUNT (BEAKER) 3.94 M/ L 4.63-6.08 L (test code = 761) HEMOGLOBIN (BEAKER) (test code = 12.2 GM/DL 13.7-17.5 L 410) HEMATOCRIT (BEAKER) (test code = 38.1 % 40.1-51.0 L 411) MEAN CORPUSCULAR VOLUME (BEAKER) 96.7 fL 79.0-92.2 H (test code = 753) MEAN CORPUSCULAR HEMOGLOBIN 31.0 pg 25.7-32.2 (BEAKER) (test code = 751) MEAN CORPUSCULAR HEMOGLOBIN CONC 32.0 GM/DL 32.3-36.5 L (BEAKER) (test code = 752) RED CELL DISTRIBUTION WIDTH 14.6 % 11.6-14.4 H (BEAKER) (test code = 412) PLATELET COUNT (BEAKER) (test 179 K/CU MM 150-450 code = 756) MEAN PLATELET VOLUME (BEAKER) 10.2 fL 9.4-12.4 (test code = 754) NUCLEATED RED BLOOD CELLS 0 /100 WBC 0-0 (BEAKER) (test code = 413) NEUTROPHILS RELATIVE PERCENT 60 % (BEAKER) (test code = 429) LYMPHOCYTES RELATIVE PERCENT 22 % (BEAKER) (test code = 430) MONOCYTES RELATIVE PERCENT 12 % (BEAKER) (test code = 431) EOSINOPHILS RELATIVE PERCENT 5 % (BEAKER) (test code = 432) BASOPHILS RELATIVE PERCENT 0 % (BEAKER) (test code = 437) NEUTROPHILS ABSOLUTE COUNT 2.96 K/ L 1.78-5.38 (BEAKER) (test code = 670) LYMPHOCYTES ABSOLUTE COUNT 1.11 K/ L 1.32-3.57 L (BEAKER) (test code = 414) MONOCYTES ABSOLUTE COUNT (BEAKER) 0.59 K/ L 0.30-0.82 (test code = 415) EOSINOPHILS ABSOLUTE COUNT 0.27 K/ L 0.04-0.54 (BEAKER) (test code = 416) BASOPHILS ABSOLUTE COUNT (BEAKER) 0.02 K/ L 0.01-0.08 (test code = 417) IMMATURE GRANULOCYTES-RELATIVE 0 % 0-1 PERCENT (BEAKER) (test code = 2801) BASIC METABOLIC [id number] 06:49:00 Test Item Value Reference Range Interpretation Comments SODIUM (BEAKER) 139 meq/L 136-145 (test code = 381) POTASSIUM (BEAKER) 3.8 meq/L 3.5-5.1 (test code = 379) CHLORIDE (BEAKER) 101 meq/L 98-107 (test code = 382) CO2 (BEAKER) (test 31 meq/L 22-29 H code = 355) BLOOD UREA NITROGEN 13 mg/dL 7-21 (BEAKER) (test code = 354) CREATININE (BEAKER) 0.68 mg/dL 0.57-1.25 (test code = 358) GLUCOSE RANDOM 96 mg/dL 70-105 (BEAKER) (test code = 652) CALCIUM (BEAKER) 8.1 mg/dL 8.4-10.2 L (test code = 697) EGFR (BEAKER) (test 111 mL/min/1.73 ESTIM ATED GFR IS code = 1092) sq m NOT ACCURATE CREATININE CLEARANCE IN PREDICTING GLOMERULAR FILTRATION RATE . ESTIMATED GFR I S NOT APPLICABLE FOR DIALYSIS PATIEN TS. Powder Room Attendant ID - ARIADNA [id number] 06:49:00 Test Item Value Reference Range Interpretation Comments MAGNESIUM (BEAKER) (test code = 1.9 mg/dL 1.6-2.6 627) Powder Room Attendant ID - ARIADNA [id number] 06:49:00 Test Item Value Reference Range Interpretation Comments PHOSPHORUS (BEAKER) (test code = 2.7 mg/dL 2.3-4.7 604) Powder Room Attendant ID Matti ROSENTHAL WCBC (HEMOGRAM ONLY)2020-09-19 06:21:00 Test Item Value Reference Range Interpretation Comments WHITE BLOOD CELL COUNT (BEAKER) 6.3 K/ L 3.5-10.5 (test code = 775) RED BLOOD CELL COUNT (BEAKER) 2.63 M/ L 4.63-6.08 L (test code = 761) HEMOGLOBIN (BEAKER) (test code = 8.2 GM/DL 13.7-17.5 L 410) HEMATOCRIT (BEAKER) (test code = 25.3 % 40.1-51.0 L 411) MEAN CORPUSCULAR VOLUME (BEAKER) 96.2 fL 79.0-92.2 H (test code = 753) MEAN CORPUSCULAR HEMOGLOBIN 31.2 pg 25.7-32.2 (BEAKER) (test code = 751) MEAN CORPUSCULAR HEMOGLOBIN CONC 32.4 GM/DL 32.3-36.5 (BEAKER) (test code = 752) RED CELL DISTRIBUTION WIDTH 15.8 % 11.6-14.4 H (BEAKER) (test code = 412) PLATELET COUNT (BEAKER) (test 159 K/CU MM 150-450 code = 756) MEAN PLATELET VOLUME (BEAKER) 11.6 fL 9.4-12.4 (test code = 754) NUCLEATED RED BLOOD CELLS 1 /100 WBC 0-0 H (BEAKER) (test code = 413) BASIC METABOLIC [id number] 07:08:00 Test Item Value Reference Range Interpretation Comments SODIUM (BEAKER) 138 meq/L 136-145 (test code = 381) POTASSIUM (BEAKER) 3.8 meq/L 3.5-5.1 (test code = 379) CHLORIDE (BEAKER) 103 meq/L 98-107 (test code = 382) CO2 (BEAKER) (test 29 meq/L 22-29 code = 355) BLOOD UREA NITROGEN 12 mg/dL 7-21 (BEAKER) (test code = 354) CREATININE (BEAKER) 0.70 mg/dL 0.57-1.25 (test code = 358) GLUCOSE RANDOM 134 mg/dL 70-105 H (BEAKER) (test code = 652) CALCIUM (BEAKER) 8.2 mg/dL 8.4-10.2 L (test code = 697) EGFR (BEAKER) (test 107 mL/min/1.73 ESTIM ATED GFR IS code = 1092) sq m NOT ACCURATE CREATININE CLEARANCE IN PREDICTING GLOMERULAR FILTRATION RATE . ESTIMATED GFR I S NOT APPLICABLE FOR DIALYSIS PATIEN TS. Powder Room Attendant ID - ARMIN [id number] 07:08:00 Test Item Value Reference Range Interpretation Comments MAGNESIUM (BEAKER) (test code = 2.1 mg/dL 1.6-2.6 627) Powder Room Attendant ID - ARMIN [id number] 07:08:00 Test Item Value Reference Range Interpretation Comments PHOSPHORUS (BEAKER) (test code = 2.1 mg/dL 2.3-4.7 L 604) Powder Room Attendant ID - ARMIN LCBC (HEMOGRAM ONLY)2020-09-18 06:57:00 Test Item Value Reference Range Interpretation Comments WHITE BLOOD CELL COUNT (BEAKER) 5.6 K/ L 3.5-10.5 (test code = 775) RED BLOOD CELL COUNT (BEAKER) 2.52 M/ L 4.63-6.08 L (test code = 761) HEMOGLOBIN (BEAKER) (test code = 7.8 GM/DL 13.7-17.5 L 410) HEMATOCRIT (BEAKER) (test code = 24.3 % 40.1-51.0 L 411) MEAN CORPUSCULAR VOLUME (BEAKER) 96.4 fL 79.0-92.2 H (test code = 753) MEAN CORPUSCULAR HEMOGLOBIN 31.0 pg 25.7-32.2 (BEAKER) (test code = 751) MEAN CORPUSCULAR HEMOGLOBIN CONC 32.1 GM/DL 32.3-36.5 L (BEAKER) (test code = 752) RED CELL DISTRIBUTION WIDTH 15.7 % 11.6-14.4 H (BEAKER) (test code = 412) PLATELET COUNT (BEAKER) (test 145 K/CU MM 150-450 L code = 756) MEAN PLATELET VOLUME (BEAKER) 11.4 fL 9.4-12.4 (test code = 754) NUCLEATED RED BLOOD CELLS 1 /100 WBC 0-0 H (BEAKER) (test code = 413) BASIC METABOLIC [id number] 06:26:00 Test Item Value Reference Range Interpretation Comments SODIUM (BEAKER) 139 meq/L 136-145 (test code = 381) POTASSIUM (BEAKER) 3.5 meq/L 3.5-5.1 (test code = 379) CHLORIDE (BEAKER) 103 meq/L 98-107 (test code = 382) CO2 (BEAKER) (test 27 meq/L 22-29 code = 355) BLOOD UREA NITROGEN 17 mg/dL 7-21 (BEAKER) (test code = 354) CREATININE (BEAKER) 0.76 mg/dL 0.57-1.25 (test code = 358) GLUCOSE RANDOM 111 mg/dL 70-105 H (BEAKER) (test code = 652) CALCIUM (BEAKER) 8.5 mg/dL 8.4-10.2 (test code = 697) EGFR (BEAKER) (test 97 mL/min/1.73 ESTIMA SAM GFR IS code = 1092) sq m NOT ACCURATE CREATININE CLEARANCE IN PREDICTING GLOMERULAR FILTRATION RATE . ESTIMATED GFR I S NOT APPLICABLE FOR DIALYSIS PATIEN TS. Powder Room Attendant ID - [id number] 06:26:00 Test Item Value Reference Range Interpretation Comments MAGNESIUM (BEAKER) (test code = 1.9 mg/dL 1.6-2.6 627) Powder Room Attendant ID - [id number] 06:26:00 Test Item Value Reference Range Interpretation Comments PHOSPHORUS (BEAKER) (test code = 2.7 mg/dL 2.3-4.7 604) Powder Room Attendant ID - DBCBC (HEMOGRAM ONLY)2020-09-17 05:54:00 Test Item Value Reference Range Interpretation Comments WHITE BLOOD CELL COUNT (BEAKER) 7.4 K/ L 3.5-10.5 (test code = 775) RED BLOOD CELL COUNT (BEAKER) 2.77 M/ L 4.63-6.08 L (test code = 761) HEMOGLOBIN (BEAKER) (test code = 8.6 GM/DL 13.7-17.5 L 410) HEMATOCRIT (BEAKER) (test code = 27.0 % 40.1-51.0 L 411) MEAN CORPUSCULAR VOLUME (BEAKER) 97.5 fL 79.0-92.2 H (test code = 753) MEAN CORPUSCULAR HEMOGLOBIN 31.0 pg 25.7-32.2 (BEAKER) (test code = 751) MEAN CORPUSCULAR HEMOGLOBIN CONC 31.9 GM/DL 32.3-36.5 L (BEAKER) (test code = 752) RED CELL DISTRIBUTION WIDTH 15.5 % 11.6-14.4 H (BEAKER) (test code = 412) PLATELET COUNT (BEAKER) (test 147 K/CU MM 150-450 L code = 756) MEAN PLATELET VOLUME (BEAKER) 11.6 fL 9.4-12.4 (test code = 754) NUCLEATED RED BLOOD CELLS 0 /100 WBC 0-0 (BEAKER) (test code = 413) POCT-GLUCOSE [id number] 08:39:00 Test Item Value Reference Range Interpretation Comments POC-GLUCOSE METER 106 mg/dL 70-110 : TESTED A T [facility] 6720 (BEAKER) (test code = IMANI CARTER, 1538) [id number]: Powder Room Attendant/Techni ivone ID = [id number] for Annalisa Daigle BASIC METABOLIC [id number] 06:13:00 Test Item Value Reference Range Interpretation Comments SODIUM (BEAKER) 139 meq/L 136-145 (test code = 381) POTASSIUM (BEAKER) 3.7 meq/L 3.5-5.1 (test code = 379) CHLORIDE (BEAKER) 105 meq/L 98-107 (test code = 382) CO2 (BEAKER) (test 26 meq/L 22-29 code = 355) BLOOD UREA NITROGEN 20 mg/dL 7-21 (BEAKER) (test code = 354) CREATININE (BEAKER) 0.72 mg/dL 0.57-1.25 (test code = 358) GLUCOSE RANDOM 113 mg/dL 70-105 H (BEAKER) (test code = 652) CALCIUM (BEAKER) 8.3 mg/dL 8.4-10.2 L (test code = 697) EGFR (BEAKER) (test 104 mL/min/1.73 ESTIM ATED GFR IS code = 1092) sq m NOT ACCURATE CREATININE CLEARANCE IN PREDICTING GLOMERULAR FILTRATION RATE . ESTIMATED GFR I S NOT APPLICABLE FOR DIALYSIS PATIEN TS. Powder Room Attendant ID - [id number] 06:13:00 Test Item Value Reference Range Interpretation Comments MAGNESIUM (BEAKER) (test code = 2.0 mg/dL 1.6-2.6 627) Powder Room Attendant ID - [id number] 06:13:00 Test Item Value Reference Range Interpretation Comments PHOSPHORUS (BEAKER) (test code = 2.2 mg/dL 2.3-4.7 L 604) Powder Room Attendant ID - [id number], CHEST, 1 VIEW, NON [id number] 05:26:00while patient is intubated or has chest tubes.Reason for exam:->Status post CV SurgeryShould thisbe performed at the bedside?->Yes [facility] : 1935 Sex: MFINAL REPORT RAD, CHEST, 1 VIEW, NON DEPT INDICATION: Status post CV Surgery COMPARISON: Prior day's exam FINDINGS: Portable frontal view of the chest. IMPRESSION: Support Lines: None. Lungs and pleura: Unchanged airspace and pleural opacities. No pneumothorax.Heart and mediastinum: Stable contours. Stable surgical changes.Additional findings: None. Signed: Jasbir Ahmadi Verified Date/Time: 09/16/2020 05:26:35 CBC (HEMOGRAM ONLY)2020-09-16 05:18:00 Test Item Value Reference Range Interpretation Comments WHITE BLOOD CELL COUNT (BEAKER) 6.4 K/ L 3.5-10.5 (test code = 775) RED BLOOD CELL COUNT (BEAKER) 2.60 M/ L 4.63-6.08 L (test code = 761) HEMOGLOBIN (BEAKER) (test code = 8.2 GM/DL 13.7-17.5 L 410) HEMATOCRIT (BEAKER) (test code = 25.6 % 40.1-51.0 L 411) MEAN CORPUSCULAR VOLUME (BEAKER) 98.5 fL 79.0-92.2 H (test code = 753) MEAN CORPUSCULAR HEMOGLOBIN 31.5 pg 25.7-32.2 (BEAKER) (test code = 751) MEAN CORPUSCULAR HEMOGLOBIN CONC 32.0 GM/DL 32.3-36.5 L (BEAKER) (test code = 752) RED CELL DISTRIBUTION WIDTH 15.5 % 11.6-14.4 H (BEAKER) (test code = 412) PLATELET COUNT (BEAKER) (test 118 K/CU MM 150-450 L code = 756) MEAN PLATELET VOLUME (BEAKER) 11.5 fL 9.4-12.4 (test code = 754) NUCLEATED RED BLOOD CELLS 0 /100 WBC 0-0 (BEAKER) (test code = 413) POCT-GLUCOSE [id number] 21:14:00 Test Item Value Reference Range Interpretation Comments POC-GLUCOSE METER 125 mg/dL 70-110 H : Notified RN/MD: (BEAKER) (test code = TESTED AT [facility] 6720 1538) [facility], [address]: Powder Room Attendant/Techni ivone ID = [id number] for GANESH MARIN POCT-GLUCOSE [id number] 18:03:00 Test Item Value Reference Range Interpretation Comments POC-GLUCOSE METER 105 mg/dL 70-110 : TESTED [facility] T [facility] ([place]) (test code = [facility], 1538) [address]: Powder Room Attendant/Techni ivone ID = [id number] for Leslie Rodrigues POCT-GLUCOSE [id number] 08:26:00 Test Item Value Reference Range Interpretation Comments POC-GLUCOSE METER 114 mg/dL 70-110 H : [facility] ([place]) (test code = [facility], 1538) [address]: Powder Room Attendant/Techni ivone ID = [id number] for Jose Howell BASIC METABOLIC [id number] 06:57:00 Test Item Value Reference Range Interpretation Comments SODIUM (BEAKER) 140 meq/L 136-145 (test code = 381) POTASSIUM (BEAKER) 4.0 meq/L 3.5-5.1 (test code = 379) CHLORIDE (BEAKER) 107 meq/L 98-107 (test code = 382) CO2 (BEAKER) (test 25 meq/L 22-29 code = 355) BLOOD UREA NITROGEN 22 mg/dL 7-21 H (BEAKER) (test code = 354) CREATININE (BEAKER) 0.82 mg/dL 0.57-1.25 (test code = 358) GLUCOSE RANDOM 133 mg/dL 70-105 H (BEAKER) (test code = 652) CALCIUM (BEAKER) 8.4 mg/dL 8.4-10.2 (test code = 697) EGFR (BEAKER) (test 89 mL/min/1.73 ESTIMA SAM GFR IS code = 1092) sq m NOT ACCURATE CREATININE CLEARANCE IN PREDICTING GLOMERULAR FILTRATION RATE . ESTIMATED GFR I S NOT APPLICABLE FOR DIALYSIS PATIEN TS. Powder Room Attendant ID - [id number] 06:57:00 Test Item Value Reference Range Interpretation Comments MAGNESIUM (BEAKER) (test code = 2.1 mg/dL 1.6-2.6 627) Powder Room Attendant ID - [id number] 06:57:00 Test Item Value Reference Range Interpretation Comments PHOSPHORUS (BEAKER) (test code = 3.1 mg/dL 2.3-4.7 604) Powder Room Attendant ID - [id number] (HEMOGRAM ONLY)2020-09-15 06:37:00 Test Item Value Reference Range Interpretation Comments WHITE BLOOD CELL COUNT (BEAKER) 8.3 K/ L 3.5-10.5 (test code = 775) RED BLOOD CELL COUNT (BEAKER) 2.76 M/ L 4.63-6.08 L (test code = 761) HEMOGLOBIN (BEAKER) (test code = 8.5 GM/DL 13.7-17.5 L 410) HEMATOCRIT (BEAKER) (test code = 27.0 % 40.1-51.0 L 411) MEAN CORPUSCULAR VOLUME (BEAKER) 97.8 fL 79.0-92.2 H (test code = 753) MEAN CORPUSCULAR HEMOGLOBIN 30.8 pg 25.7-32.2 (BEAKER) (test code = 751) MEAN CORPUSCULAR HEMOGLOBIN CONC 31.5 GM/DL 32.3-36.5 L (BEAKER) (test code = 752) RED CELL DISTRIBUTION WIDTH 15.7 % 11.6-14.4 H (BEAKER) (test code = 412) PLATELET COUNT (BEAKER) (test 126 K/CU MM 150-450 L code = 756) MEAN PLATELET VOLUME (BEAKER) 12.0 fL 9.4-12.4 (test code = 754) NUCLEATED RED BLOOD CELLS 0 /100 WBC 0-0 (BEAKER) (test code = 413) RAD, CHEST, 1 VIEW, NON [id number] 04:57:00while patient is intubated or has chest tubes.Reason for exam:->Status post CV SurgeryShould thisbe performed at the bedside?->Yes [facility] 1935 Sex: MFINAL REPORT CLINICAL INDICATION: Postop Comparison: 09/14/2020 The cardiomediastinal contours are stable. The lung volumes remain low. There is mild elevation of the right hemidiaphragm. Central pulmonary vascular dominance and bilateral parenchymal and left pleural opacities are similar to previous. There is no pneumothorax. A right IJ CVC, mediastinal drain and bilateral chest tubes have been removed. Signed: Jerson Leggett MDReport Verified Date/Time: 104:57:14 POCT-GLUCOSE [id number] 22:24:00 Test Item Value Reference Range Interpretation Comments POC-GLUCOSE METER 108 mg/dL 70-110 : Notified RN/MD: (BANNER) (test code = TESTED AT [facility] 6720 1538) [facility], [address]: Powder Room Attendant/Techni ivone ID = [id number] for ANGI DIAZ POCT-GLUCOSE [id number] 17:56:00 Test Item Value Reference Range Interpretation Comments POC-GLUCOSE METER 97 mg/dL 70-110 : TESTED A T [facility] ([place]) (test code = [facility], 153) [address]: Powder Room Attendant/Techni ivone ID = [id number] for Annalisa Kennedy POCT-GLUCOSE [id number] 13:09:00 Test Item Value Reference Range Interpretation Comments POC-GLUCOSE METER 175 mg/dL 70-110 H : TESTED A T [facility] 6720 ([place]) (test code = [facility], 153) [address]: Powder Room Attendant/Techni ivone ID = [id number] for Kristan Lacey POCT-GLUCOSE [id number] 10:27:00 Test Item Value Reference Range Interpretation Comments POC-GLUCOSE METER 66 mg/dL 70-110 L : TESTED A T [facility] 6720 (BEAKER) (test code = [facility] [place], 1538) [address]: Powder Room Attendant/Techni ivone ID = [id number] for Kristan Amado PLATELET AGGREGATION: FUNCTION [id number] 09:45:00 Test Item Value Reference Range Interpretation Comments [id number] Marbella Graham MD (BEAKER) (test code = (electronic 2622) signature) PLATELET COUNT AGG 146 K/CU MM 150-450 L (BEAKER) (test code = 2056) ADP (BEAKER) (test code 76 % 62-100 = 4654) PLATELET RICH 158 k/cu mm 200-300 L PLASMA(BEAKER) (test code = 2134) PLATELET FUNCTION SCREEN Normal aggregation INTERPRETATION (BEAKER) results with ADP. No (test code = 4655) evidence of platelet dysfunction or P2Y12 inhibitor effect. Platelet Function Screen results may be falsely low with platelet counts<75,000/cu mm.Powder Room Attendant ID- [id number] ID - [id number] METABOLIC PANEL 2020-09-14 05:31:00 Test Item Value Reference Range Interpretation Comments SODIUM (BEAKER) 141 meq/L 136-145 (test code = 381) POTASSIUM (BEAKER) 4.0 meq/L 3.5-5.1 (test code = 379) CHLORIDE (BEAKER) 111 meq/L 98-107 H (test code = 382) CO2 (BEAKER) (test 22 meq/L 22-29 code = 355) BLOOD UREA NITROGEN 14 mg/dL 7-21 (BEAKER) (test code = 354) CREATININE (BEAKER) 0.77 mg/dL 0.57-1.25 (test code = 358) GLUCOSE RANDOM 104 mg/dL 70-105 (BEAKER) (test code = 652) CALCIUM (BEAKER) 8.2 mg/dL 8.4-10.2 L (test code = 697) EGFR (BEAKER) (test 96 mL/min/1.73 ESTIMA SAM GFR IS code = 1092) sq m NOT ACCURATE CREATININE CLEARANCE IN PREDICTING GLOMERULAR FILTRATION RATE . ESTIMATED GFR I S NOT APPLICABLE FOR DIALYSIS PATIEN TS. Powder Room Attendant ID - [id number] 05:31:00 Test Item Value Reference Range Interpretation Comments MAGNESIUM (BEAKER) (test code = 2.0 mg/dL 1.6-2.6 627) Powder Room Attendant ID - [id number] 05:31:00 Test Item Value Reference Range Interpretation Comments PHOSPHORUS (BEAKER) (test code = 4.3 mg/dL 2.3-4.7 604) Powder Room Attendant ID - [id number] (HEMOGRAM ONLY)2020-09-14 04:56:00 Test Item Value Reference Range Interpretation Comments WHITE BLOOD CELL COUNT (BEAKER) 13.3 K/ L 3.5-10.5 H (test code = 775) RED BLOOD CELL COUNT (BEAKER) 2.96 M/ L 4.63-6.08 L (test code = 761) HEMOGLOBIN (BEAKER) (test code = 9.3 GM/DL 13.7-17.5 L 410) HEMATOCRIT (BEAKER) (test code = 28.0 % 40.1-51.0 L 411) MEAN CORPUSCULAR VOLUME (BEAKER) 94.6 fL 79.0-92.2 H (test code = 753) MEAN CORPUSCULAR HEMOGLOBIN 31.4 pg 25.7-32.2 (BEAKER) (test code = 751) MEAN CORPUSCULAR HEMOGLOBIN CONC 33.2 GM/DL 32.3-36.5 (BEAKER) (test code = 752) RED CELL DISTRIBUTION WIDTH 15.3 % 11.6-14.4 H (BEAKER) (test code = 412) PLATELET COUNT (BEAKER) (test 143 K/CU MM 150-450 L code = 756) MEAN PLATELET VOLUME (BEAKER) 11.0 fL 9.4-12.4 (test code = 754) NUCLEATED RED BLOOD CELLS 0 /100 WBC 0-0 (BEAKER) (test code = 413) RAD, CHEST, 1 VIEW, NON [id number] 03:54:00while patient is intubated or has chest tubes.Reason for exam:->Status post CV SurgeryShould thisbe performed at the bedside?->Yes [facility] 1935 Sex: MFINAL REPORT RAD, CHEST, 1 VIEW, NON DEPT INDICATION: Status post CV Surgery COMPARISON: Prior day's exam FINDINGS: Portable frontal view of the chest. IMPRESSION: Support Lines: Interval extubation and removal the previously seen enteric tube. Otherwise unchanged support apparatus. Lungs and pleura: Increased bibasilar atelectasis. Coarse interstitial airspace opacities. Small left pneumothorax.Heart and mediastinum: Stable contours. Stable surgical changes.Additional findings: None. Signed: Jasbir Ahmadi Verified Date/Time: 09/14/2020 03:54:16 POCT-GLUCOSE [id number] 01:49:00 Test Item Value Reference Range Interpretation Comments POC-GLUCOSE METER 120 mg/dL 70-110 H : TESTED A T [facility] 6720 ([employer]) (test code = [facility], 153) [address]: Powder Room Attendant/Techni ivone ID = [id number] for Tressa Curiel POCT-GLUCOSE [id number] 22:56:00 Test Item Value Reference Range Interpretation Comments POC-GLUCOSE METER 147 mg/dL 70-110 H : TESTED A T [facility] 6720 (BEAKER) (test code = [facility], 153) [address]: Powder Room Attendant/Techni ivone ID = [id number] for RO BLES, KITZEL POCT-GLUCOSE [id number] 20:48:00 Test Item Value Reference Range Interpretation Comments POC-GLUCOSE METER 125 mg/dL 70-110 H : TESTED A T [facility] 6720 (BEAKER) (test code = [facility], 153) [address]: Powder Room Attendant/Techni ivone ID = [id number] for RO BLES, KITZEL POCT-GLUCOSE [id number] 18:45:00 Test Item Value Reference Range Interpretation Comments POC-GLUCOSE METER 171 mg/dL 70-110 H : TESTED A T [facility] 6720 (BEAKER) (test code = [facility] [place], 1538) [address]: Powder Room Attendant/Techni ivone ID = [id number] for ESTIVEN BOURNE BLOOD GAS, [id number] 18:43:00 Test Item Value Reference Range Interpretation Comments PH ARTERIAL (BEAKER) (test code = 7.37 7.35-7.45 383) PCO2 ARTERIAL (BEAKER) (test code 39 mm Hg 35-45 = 384) PO2 ARTERIAL (BEAKER) (test code 148 mm Hg 80-90 H = 385) O2 SATURATION ARTERIAL (BEAKER) 98.9 % 96.0-97.0 H (test code = 386) HCO3 ARTERIAL (BEAKER) (test code 23 mmol/L 21-29 = 388) BASE EXCESS ARTERIAL (BEAKER) -2.6 mmol/L -2.0-3.0 L (test code = 387) PATIENT TEMPERATURE (BEAKER) 36.1 (test code = 1818) FIO2 (BEAKER) (test code = 1819) 36.0 BLOOD GAS, [id number] 18:03:00 Test Item Value Reference Range Interpretation Comments PH ARTERIAL (BEAKER) (test code = 7.41 7.35-7.45 383) PCO2 ARTERIAL (BEAKER) (test code 35 mm Hg 35-45 = 384) PO2 ARTERIAL (BEAKER) (test code 125 mm Hg 80-90 H = 385) O2 SATURATION ARTERIAL (BEAKER) 98.6 % 96.0-97.0 H (test code = 386) HCO3 ARTERIAL (BEAKER) (test code 22 mmol/L 21-29 = 388) BASE EXCESS ARTERIAL (BEAKER) -2.8 mmol/L -2.0-3.0 L (test code = 387) PATIENT TEMPERATURE (BEAKER) 36.1 (test code = 1818) FIO2 (BEAKER) (test code = 1819) 40.0 GLUCOSE-STAT [id number] 18:03:00 Test Item Value Reference Range Interpretation Comments GLUCOSE RANDOM (BEAKER) (test code 168 mg/dL 70-110 H = 652) [id number] 16:51:00 Test Item Value Reference Range Interpretation Comments FIBRINOGEN LEVEL (BEAKER) (test 223 mg/dl 225-434 L code = 658) [id number] 16:51:00 Test Item Value Reference Range Interpretation Comments PARTIAL THROMBOPLASTIN TIME 35.5 seconds 22.5-36.0 (BEAKER) (test code = 760) PROTHROMBIN TIME/[id number] 16:50:00 Test Item Value Reference Range Interpretation Comments PROTIME (BEAKER) 17.0 seconds 11.9-14.2 H (test code = 759) INR (BEAKER) (test 1.42 See_Comment [Automat ed message] code = 370) The system [employer] generated this result transmitted ref erence range: <=5.90. The reference range was not used to int erpret this result as normal/abnormal . Effective 10/27/2018: PT Reference Range ChangeNew: 11.9-14.2 Previous: 11.7- 14.7RECOMMENDED COUMADIN/WARFARIN INR THERAPY RANGESSTANDARD DOSE: 2.0-3.0 Includes: PROPHYLAXIS for venous thrombosis, systemic embolization; TREATMENT for venous thrombosis and/or pulmonary embolus.HIGH RISK: Target INR is2.5-3.5 for patients wiht mechanical heart valves.POCT-GLUCOSE [id number] 16:48:00 Test Item Value Reference Range Interpretation Comments POC-GLUCOSE METER 139 mg/dL 70-110 H : TESTED A T [facility] 6720 (BEAKER) (test code = [facility] [place], 1538) [address]: Powder Room Attendant/Techni ivone ID = [id number] for RIAZ NILAMESTIVEN EDWARDS CBC (HEMOGRAM ONLY)2020-09-13 16:48:00 Test Item Value Reference Range Interpretation Comments WHITE BLOOD CELL COUNT (BEAKER) 9.4 K/ L 3.5-10.5 (test code = 775) RED BLOOD CELL COUNT (BEAKER) 3.17 M/ L 4.63-6.08 L (test code = 761) HEMOGLOBIN (BEAKER) (test code = 9.8 GM/DL 13.7-17.5 L 410) HEMATOCRIT (BEAKER) (test code = 30.2 % 40.1-51.0 L 411) MEAN CORPUSCULAR VOLUME (BEAKER) 95.3 fL 79.0-92.2 H (test code = 753) MEAN CORPUSCULAR HEMOGLOBIN 30.9 pg 25.7-32.2 (BEAKER) (test code = 751) MEAN CORPUSCULAR HEMOGLOBIN CONC 32.5 GM/DL 32.3-36.5 (BEAKER) (test code = 752) RED CELL DISTRIBUTION WIDTH 14.8 % 11.6-14.4 H (BEAKER) (test code = 412) PLATELET COUNT (BEAKER) (test 117 K/CU MM 150-450 L code = 756) MEAN PLATELET VOLUME (BEAKER) 10.7 fL 9.4-12.4 (test code = 754) NUCLEATED RED BLOOD CELLS 0 /100 WBC 0-0 (BEAKER) (test code = 413) POCT-GLUCOSE [id number] 15:11:00 Test Item Value Reference Range Interpretation Comments POC-GLUCOSE METER 138 mg/dL 70-110 H : TESTED A T [facility] 6720 (BEAKER) (test code = [facility], 1538) [address]: Powder Room Attendant/Techni ivone ID = [id number] for [place] LDROP, ESTIVEN POCT-GLUCOSE [id number] 14:30:00 Test Item Value Reference Range Interpretation Comments POC-GLUCOSE METER 134 mg/dL 70-110 H : TESTED A T [facility] 6720 (BEAKER) (test code = [facility], 1538) [address]: Powder Room Attendant/Techni ivone ID = [id number] for [place] LDROP, ESTIVEN THROMBOELASTOGRAPH (TEG)2020-09-13 13:51:00 Test Item Value Reference Range Interpretation Comments TEG ACTIVATED CLOTTING TIME 5.2 minutes 4.0-7.0 (BEAKER) (test code = 1407) TEG FIBRINOGEN ACTIVITY (BEAKER) 65.3 degrees 61.0-73.0 (test code = 1408) TEG PLT. AGGREGATION (BEAKER) 58.1 MM 55.0-65.0 (test code = 1409) TGH ACTIVATED CLOTTING TIME 5.7 minutes 4.0-7.0 (BEAKER) (test code = 1411) TGH FIBRINOGEN ACTIVITY (BEAKER) 62.9 degrees 61.0-73.0 (test code = 1412) TGH PLT. AGGREGATION (BEAKER) 58.1 MM 55.0-65.0 (test code = 1413) BASIC METABOLIC [id number] 12:23:00 Test Item Value Reference Range Interpretation Comments SODIUM (BEAKER) 137 meq/L 136-145 (test code = 381) POTASSIUM (BEAKER) 4.4 meq/L 3.5-5.1 (test code = 379) CHLORIDE (BEAKER) 110 meq/L 98-107 H (test code = 382) CO2 (BEAKER) (test 23 meq/L 22-29 code = 355) BLOOD UREA NITROGEN 9 mg/dL 7-21 (BEAKER) (test code = 354) CREATININE (BEAKER) 0.71 mg/dL 0.57-1.25 (test code = 358) GLUCOSE RANDOM 166 mg/dL 70-105 H (BEAKER) (test code = 652) CALCIUM (BEAKER) 9.0 mg/dL 8.4-10.2 (test code = 697) EGFR (BEAKER) (test 105 mL/min/1.73 ESTIM ATED GFR IS code = 1092) sq m NOT ACCURATE CREATININE CLEARANCE IN PREDICTING GLOMERULAR FILTRATION RATE . ESTIMATED GFR I S NOT APPLICABLE FOR DIALYSIS PATIEN TS. Powder Room Attendant ID - [id number] 12:23:00 Test Item Value Reference Range Interpretation Comments MAGNESIUM (BEAKER) (test code = 2.3 mg/dL 1.6-2.6 627) Powder Room Attendant ID - [id number] 12:23:00 Test Item Value Reference Range Interpretation Comments PHOSPHORUS (BEAKER) (test code = 3.1 mg/dL 2.3-4.7 604) Powder Room Attendant ID - [id number] 12:10:00 Test Item Value Reference Range Interpretation Comments FIBRINOGEN LEVEL (BEAKER) (test 158 mg/dl 225-434 L code = 658) RAD, CHEST, 1 VIEW, NON [id number] 12:10:00Reason for exam:->Status post CV Surgery post op day 0Should this be performed at the bedside?->Yes [facility] 1935 Sex: MFINAL REPORT CLINICAL HISTORY: Status post CV Surgery post op day 0 TECHNIQUE: 1 view of the chest. COMPARISON: 09/10/2020 IMPRESSION: The patient is status post median sternotomy with an endotracheal tube at the clavicles, a right central line in the SVC, a nasogastric tube with the sidehole at the gastroesophageal junction, and midline and bibasilar chest tubes. There is no pneumothorax. There are new hazy bibasilar airspace opacities and trace bilateral pleural effusions. Signed: Santosh Garcia MDReport Verified Date/Time: 09/13/2020 12:10:06 Reading Location: [facility] Radiology Reading Room Electronically signed by: SANTOSH GARCIA M.D. on 112:10 PMAPTT 2020-09-13 12:06:00 Test Item Value Reference Range Interpretation Comments PARTIAL THROMBOPLASTIN TIME 35.6 seconds 22.5-36.0 (BEAKER) (test code = 760) PROTHROMBIN [id number] 12:05:00 Test Item Value Reference Range Interpretation Comments PROTIME (BEAKER) 19.2 seconds 11.9-14.2 H (test code = 759) INR (BEAKER) (test 1.66 See_Comment [Automat ed message] code = 370) The system [employer] generated this result transmitted ref erence range: <=5.90. The reference range was not used to int erpret this result as normal/abnormal . Effective 10/27/2018: PT Reference Range ChangeNew: 11.9-14.2 Previous: 11.7- 14.7RECOMMENDED COUMADIN/WARFARIN INR THERAPY RANGESSTANDARD DOSE: 2.0-3.0 Includes: PROPHYLAXIS for venous thrombosis, systemic embolization; TREATMENT for venous thrombosis and/or pulmonary embolus.HIGH RISK: Target INR is2.5-3.5 for patients wiht mechanical heart valves.LACTIC ACID, [id number] 12:02:00 Test Item Value Reference Range Interpretation Comments LACTATE BLOOD ARTERIAL (2) 0.8 mmol/L 0.5-2.2 (BEAKER) (test code = 2874) Powder Room Attendant ID - YAKOVOOD GAS, [id number] 11:57:00 Test Item Value Reference Range Interpretation Comments PH ARTERIAL (BEAKER) (test code = 7.42 7.35-7.45 383) PCO2 ARTERIAL (BEAKER) (test code 38 mm Hg 35-45 = 384) PO2 ARTERIAL (BEAKER) (test code 186 mm Hg 80-90 H = 385) O2 SATURATION ARTERIAL (BEAKER) 99.3 % 96.0-97.0 H (test code = 386) HCO3 ARTERIAL (BEAKER) (test code 24 mmol/L 21-29 = 388) BASE EXCESS ARTERIAL (BEAKER) -0.3 mmol/L -2.0-3.0 (test code = 387) PATIENT TEMPERATURE (BEAKER) 36.4 (test code = 1818) FIO2 (BEAKER) (test code = 1819) 100.0 CALCIUM, [id number] 11:57:00 Test Item Value Reference Range Interpretation Comments CALCIUM IONIZED (BEAKER) (test 1.32 mmol/L 1.12-1.27 H code = 698) PH, BLOOD (BEAKER) (test code = 7.41 1810) CBC W/PLT COUNT & AUTO [id number] 11:55:00 Test Item Value Reference Range Interpretation Comments WHITE BLOOD CELL COUNT (BEAKER) 4.4 K/ L 3.5-10.5 (test code = 775) RED BLOOD CELL COUNT (BEAKER) 2.12 M/ L 4.63-6.08 L (test code = 761) HEMOGLOBIN (BEAKER) (test code = 6.6 GM/DL 13.7-17.5 L 410) HEMATOCRIT (BEAKER) (test code = 20.5 % 40.1-51.0 L 411) MEAN CORPUSCULAR VOLUME (BEAKER) 96.7 fL 79.0-92.2 H (test code = 753) MEAN CORPUSCULAR HEMOGLOBIN 31.1 pg 25.7-32.2 (BEAKER) (test code = 751) MEAN CORPUSCULAR HEMOGLOBIN CONC 32.2 GM/DL 32.3-36.5 L (BEAKER) (test code = 752) RED CELL DISTRIBUTION WIDTH 15.4 % 11.6-14.4 H (BEAKER) (test code = 412) PLATELET COUNT (BEAKER) (test 121 K/CU MM 150-450 L code = 756) MEAN PLATELET VOLUME (BEAKER) 11.2 fL 9.4-12.4 (test code = 754) NUCLEATED RED BLOOD CELLS 0 /100 WBC 0-0 (BEAKER) (test code = 413) NEUTROPHILS RELATIVE PERCENT 75 % (BEAKER) (test code = 429) LYMPHOCYTES RELATIVE PERCENT 15 % (BEAKER) (test code = 430) MONOCYTES RELATIVE PERCENT 6 % (BEAKER) (test code = 431) EOSINOPHILS RELATIVE PERCENT 3 % (BEAKER) (test code = 432) BASOPHILS RELATIVE PERCENT 0 % (BEAKER) (test code = 437) NEUTROPHILS ABSOLUTE COUNT 3.29 K/ L 1.78-5.38 (BEAKER) (test code = 670) LYMPHOCYTES ABSOLUTE COUNT 0.64 K/ L 1.32-3.57 L (BEAKER) (test code = 414) MONOCYTES ABSOLUTE COUNT (BEAKER) 0.28 K/ L 0.30-0.82 L (test code = 415) EOSINOPHILS ABSOLUTE COUNT 0.12 K/ L 0.04-0.54 (BEAKER) (test code = 416) BASOPHILS ABSOLUTE COUNT (BEAKER) 0.01 K/ L 0.01-0.08 (test code = 417) IMMATURE GRANULOCYTES-RELATIVE 1 % 0-1 PERCENT (BEAKER) (test code = 2801) OXYGEN SATURATION, [id number] 11:52:00 Test Item Value Reference Range Interpretation Comments O2 SATURATION (MEASURED) (BEAKER) 59.4 % (test code = 1455) [id number] 10:59:00 Test Item Value Reference Range Interpretation Comments ACTIVATED CLOTTING TIME 98 sec : 74 -137 seconds, (BEAKER) (test code = Baseli ne: TESTED AT 441) [facility] [address] [facility] [place], [address]: Powder Room Attendant/Techni ivone ID = [id number] for SONIA HAMCarroll Fong [id number] 10:59:00 Test Item Value Reference Range Interpretation Comments ACTIVATED CLOTTING TIME 703 sec : 74 -137 seconds, (BEAKER) (test code = Baseli ne: TESTED AT 441) [address], [facility] 30: Powder Room Attendant/Techni ivone ID = [id number] for REGINA HAM [id number] 10:59:00 Test Item Value Reference Range Interpretation Comments ACTIVATED CLOTTING TIME 577 sec : 74 -137 seconds, (BEAKER) (test code = Baseli ne: TESTED AT 441) [address], [facility] 30: Powder Room Attendant/Techni ivone ID = [id number] for REGINA HAM [id number] 10:59:00 Test Item Value Reference Range Interpretation Comments ACTIVATED CLOTTING TIME 494 sec : 74 -137 seconds, (BEAKER) (test code = Elioi ne: TESTED AT 441) [address], [facility] 30: Powder Room Attendant/Techni ivone ID = [id number] for REGINA HAM [id number] 10:48:00 Test Item Value Reference Range Interpretation Comments PARTIAL THROMBOPLASTIN TIME 31.4 seconds 22.5-36.0 (BEAKER) (test code = 760) [id number] 10:48:00 Test Item Value Reference Range Interpretation Comments FIBRINOGEN LEVEL (BEAKER) (test 158 mg/dl 225-434 L code = 658) PROTHROMBIN [id number] 10:47:00 Test Item Value Reference Range Interpretation Comments PROTIME (BEAKER) 20.3 seconds 11.9-14.2 H (test code = 759) INR (BEAKER) (test 1.79 See_Comment [Automat ed message] code = 370) The system [employer] generated this result transmitted ref erence range: <=5.90. The reference range was not used to int erpret this result as normal/abnormal . Effective 10/27/2018: PT Reference Range ChangeNew: 11.9-14.2 Previous: 11.7- 14.7RECOMMENDED COUMADIN/WARFARIN INR THERAPY RANGESSTANDARD DOSE: 2.0-3.0 Includes: PROPHYLAXIS for venous thrombosis, systemic embolization; TREATMENT for venous thrombosis and/or pulmonary embolus.HIGH RISK: Target INR is2.5-3.5 for patients wiht mechanical heart valves.PLATELET [id number] 10:47:00 Test Item Value Reference Range Interpretation Comments PLATELET COUNT (BEAKER) (test 108 K/CU MM 150-450 L code = 756) Powder Room Attendant ID - [id number], [id number] 10:41:00 Test Item Value Reference Range Interpretation Comments CALCIUM IONIZED (BEAKER) (test 1.88 mmol/L 1.12-1.27 HH code = 698) PH, BLOOD (BEAKER) (test code = 7.36 1810) POTASSIUM-STAT [id number] 10:39:00 Test Item Value Reference Range Interpretation Comments POTASSIUM (BEAKER) (test code = 4.4 meq/L 3.6-5.5 379) BLOOD GAS, [id number] 10:39:00 Test Item Value Reference Range Interpretation Comments PH ARTERIAL (BEAKER) (test code = 7.38 7.35-7.45 383) PCO2 ARTERIAL (BEAKER) (test code 39 mm Hg 35-45 = 384) PO2 ARTERIAL (BEAKER) (test code 100 mm Hg 80-90 H = 385) O2 SATURATION ARTERIAL (BEAKER) 97.8 % 96.0-97.0 H (test code = 386) HCO3 ARTERIAL (BEAKER) (test code 23 mmol/L 21-29 = 388) BASE EXCESS ARTERIAL (BEAKER) -2.0 mmol/L -2.0-3.0 (test code = 387) PATIENT TEMPERATURE (BEAKER) 35.7 (test code = 1818) FIO2 (BEAKER) (test code = 1819) 100.0 SODIUM NA-STAT [id number] 10:39:00 Test Item Value Reference Range Interpretation Comments SODIUM (BEAKER) (test code = 381) 132 meq/L 136-145 L GLUCOSE-STAT [id number] 10:39:00 Test Item Value Reference Range Interpretation Comments GLUCOSE RANDOM (BEAKER) (test code 195 mg/dL 70-110 H = 652) HGB/HCT (H&H) - STAT [id number] 10:39:00 Test Item Value Reference Range Interpretation Comments HEMOGLOBIN (BEAKER) (test code = 7.4 GM/DL 13.0-16.8 L 410) HEMATOCRIT (BEAKER) (test code = 22.0 % 40.0-50.0 L 411) BLOOD GAS, [id number] 10:20:00 Test Item Value Reference Range Interpretation Comments PH ARTERIAL (BEAKER) (test code = 7.40 7.35-7.45 383) PCO2 ARTERIAL (BEAKER) (test code 41 mm Hg 35-45 = 384) PO2 ARTERIAL (BEAKER) (test code 85 mm Hg 80-90 = 385) O2 SATURATION ARTERIAL (BEAKER) 96.8 % 96.0-97.0 (test code = 386) HCO3 ARTERIAL (BEAKER) (test code 25 mmol/L 21-29 = 388) BASE EXCESS ARTERIAL (BEAKER) -0.3 mmol/L -2.0-3.0 (test code = 387) PATIENT TEMPERATURE (BEAKER) 36.0 (test code = 1818) FIO2 (BEAKER) (test code = 1819) 92.0 POTASSIUM-STAT [id number] 10:20:00 Test Item Value Reference Range Interpretation Comments POTASSIUM (BEAKER) (test code = 4.7 meq/L 3.6-5.5 379) CALCIUM, [id number] 10:20:00 Test Item Value Reference Range Interpretation Comments CALCIUM IONIZED (BEAKER) (test 1.03 mmol/L 1.12-1.27 L code = 698) PH, BLOOD (BEAKER) (test code = 7.38 1810) SODIUM NA-STAT [id number] 10:20:00 Test Item Value Reference Range Interpretation Comments SODIUM (BEAKER) (test code = 381) 132 meq/L 136-145 L GLUCOSE-STAT [id number] 10:20:00 Test Item Value Reference Range Interpretation Comments GLUCOSE RANDOM (BEAKER) (test code 204 mg/dL 70-110 H = 652) HGB/HCT (H&H) - STAT [id number] 10:20:00 Test Item Value Reference Range Interpretation Comments HEMOGLOBIN (BEAKER) (test code = 7.1 GM/DL 13.0-16.8 L 410) HEMATOCRIT (BEAKER) (test code = 21.0 % 40.0-50.0 L 411) GLUCOSE-STAT [id number] 09:45:00 Test Item Value Reference Range Interpretation Comments GLUCOSE RANDOM (BEAKER) (test code 220 mg/dL 70-110 H = 652) HGB/HCT (H&H) - STAT [id number] 09:45:00 Test Item Value Reference Range Interpretation Comments HEMOGLOBIN (BEAKER) (test code = 6.7 GM/DL 13.0-16.8 L 410) HEMATOCRIT (BEAKER) (test code = 20.0 % 40.0-50.0 L 411) SODIUM NA-STAT [id number] 09:45:00 Test Item Value Reference Range Interpretation Comments SODIUM (BEAKER) (test code = 381) 130 meq/L 136-145 L BLOOD GAS, [id number] 09:45:00 Test Item Value Reference Range Interpretation Comments PH ARTERIAL (BEAKER) (test code = 7.39 7.35-7.45 383) PCO2 ARTERIAL (BEAKER) (test code 44 mm Hg 35-45 = 384) PO2 ARTERIAL (BEAKER) (test code = 278 mm Hg 80-90 H 385) O2 SATURATION ARTERIAL (BEAKER) 99.6 % 96.0-97.0 H (test code = 386) HCO3 ARTERIAL (BEAKER) (test code 26 mmol/L 21-29 = 388) BASE EXCESS ARTERIAL (BEAKER) 0.8 mmol/L -2.0-3.0 (test code = 387) PATIENT TEMPERATURE (BEAKER) (test 36.7 code = 1818) FIO2 (BEAKER) (test code = 1819) 70.0 POTASSIUM-STAT [id number] 09:44:00 Test Item Value Reference Range Interpretation Comments POTASSIUM (BEAKER) (test code = 5.3 meq/L 3.6-5.5 379) BLOOD GAS, [id number] 09:26:00 Test Item Value Reference Range Interpretation Comments PH VENOUS (BEAKER) (test code = 7.42 7.32-7.42 701) PCO2 VENOUS (BEAKER) (test code = 37 mm Hg 41-51 L 755) PO2 VENOUS (BEAKER) (test code = 381 mm Hg 25-40 H 702) O2 SATURATION VENOUS (BEAKER) 99.8 % 40.0-70.0 H (test code = 703) HCO3 VENOUS (BEAKER) (test code = 25 mmol/L 21-29 705) BASE EXCESS VENOUS (BEAKER) (test -0.9 mmol/L -2.0-3.0 code = 704) PATIENT TEMPERATURE (BEAKER) 33.0 (test code = 1818) FIO2 (BEAKER) (test code = 1819) 80.0 BLOOD GAS, [id number] 09:26:00 Test Item Value Reference Range Interpretation Comments PH ARTERIAL (BEAKER) (test code = 7.42 7.35-7.45 383) PCO2 ARTERIAL (BEAKER) (test code 36 mm Hg 35-45 = 384) PO2 ARTERIAL (BEAKER) (test code 409 mm Hg 80-90 H = 385) O2 SATURATION ARTERIAL (BEAKER) 99.8 % 96.0-97.0 H (test code = 386) HCO3 ARTERIAL (BEAKER) (test code 24 mmol/L 21-29 = 388) BASE EXCESS ARTERIAL (BEAKER) -1.1 mmol/L -2.0-3.0 (test code = 387) PATIENT TEMPERATURE (BEAKER) 33.0 (test code = 1818) FIO2 (BEAKER) (test code = 1819) 80.0 SODIUM NA-STAT [id number] 09:26:00 Test Item Value Reference Range Interpretation Comments SODIUM (BEAKER) (test code = 381) 131 meq/L 136-145 L GLUCOSE-STAT [id number] 09:26:00 Test Item Value Reference Range Interpretation Comments GLUCOSE RANDOM (BEAKER) (test code 227 mg/dL 70-110 H = 652) HGB/HCT (H&H) - STAT [id number] 09:26:00 Test Item Value Reference Range Interpretation Comments HEMOGLOBIN (BEAKER) (test code = 6.9 GM/DL 13.0-16.8 L 410) HEMATOCRIT (BEAKER) (test code = 20.0 % 40.0-50.0 L 411) POTASSIUM-STAT [id number] 09:25:00 Test Item Value Reference Range Interpretation Comments POTASSIUM (BEAKER) (test code = 4.6 meq/L 3.6-5.5 379) GLUCOSE-STAT [id number] 08:08:00 Test Item Value Reference Range Interpretation Comments GLUCOSE RANDOM (BEAKER) (test code 101 mg/dL 70-110 = 652) POTASSIUM-STAT [id number] 08:08:00 Test Item Value Reference Range Interpretation Comments POTASSIUM (BEAKER) (test code = 3.6 meq/L 3.6-5.5 379) CALCIUM, [id number] 08:08:00 Test Item Value Reference Range Interpretation Comments CALCIUM IONIZED (BEAKER) (test 1.10 mmol/L 1.12-1.27 L code = 698) PH, BLOOD (BEAKER) (test code = 7.49 1810) BLOOD GAS, [id number] 08:08:00 Test Item Value Reference Range Interpretation Comments PH ARTERIAL (BEAKER) (test code = 7.50 7.35-7.45 H 383) PCO2 ARTERIAL (BEAKER) (test code 34 mm Hg 35-45 L = 384) PO2 ARTERIAL (BEAKER) (test code = 358 mm Hg 80-90 H 385) O2 SATURATION ARTERIAL (BEAKER) 99.8 % 96.0-97.0 H (test code = 386) HCO3 ARTERIAL (BEAKER) (test code 26 mmol/L 21-29 = 388) BASE EXCESS ARTERIAL (BEAKER) 3.0 mmol/L -2.0-3.0 (test code = 387) PATIENT TEMPERATURE (BEAKER) (test 36.0 code = 1818) FIO2 (BEAKER) (test code = 1819) 32.0 SODIUM NA-STAT [id number] 08:08:00 Test Item Value Reference Range Interpretation Comments SODIUM (BEAKER) (test code = 381) 133 meq/L 136-145 L HGB/HCT (H&H) - STAT [id number] 08:08:00 Test Item Value Reference Range Interpretation Comments HEMOGLOBIN (BEAKER) (test code = 10.5 GM/DL 13.0-16.8 L 410) HEMATOCRIT (BEAKER) (test code = 31.0 % 40.0-50.0 L 411) POCT-GLUCOSE [id number] 06:06:00 Test Item Value Reference Range Interpretation Comments POC-GLUCOSE METER 92 mg/dL 70-110 : TESTED A T [facility] 6720 (BEAKER) (test code = IM[place], 1538) [address]: Powder Room Attendant/Techni ivone ID = [id number] for JORD AN, LACRYSTAL PLATELET AGGREGATION: FUNCTION [id number] 16:06:00 Test Item Value Reference Range Interpretation Comments [id number] Truong Nance MD (BEAKER) (test code = (electronic 2622) signature) PLATELET COUNT AGG 166 K/CU MM 150-450 (BEAKER) (test code = 2656) ADP (BEAKER) (test code 26 % 62-100 L = 4654) PLATELET RICH 215 k/cu mm 200-300 PLASMA(BEAKER) (test code = 2134) PLATELET FUNCTION SCREEN Decreased aggregation INTERPRETATION (BEAKER) with ADP which (test code = 4655) indicates platelet dysfunction that may be due to medication effect, uremia, or other platelet function disorders. Clinical correlation is required. Platelet Function Screen results may be falsely low with platelet counts<75,000/cu mm.Powder Room Attendant ID- [id number], CHEST, 2 [id number] 15:29:00In departmentReason for exam:->Preop screenShould this be performed at the bedside?->[facility] : 1935 Sex: MFINAL REPORT CLINICAL HISTORY: Preop screen TECHNIQUE: 2 views of the chest COMPARISON: None IMPRESSION: There are no focal infiltrates or effusions. The cardiomediastinal silhouette is within normal limits for size. The osseous structures appear intact. Signed: Santosh Garcia Verified Date/Time: 09/10/2020 15:29:29 Reading Location: [facility] Radiology Reading Room -COV2/RT-PCR ([facility])2020-09-10 15:02:00 Test Item Value Reference Range Interpretation Comments SARS-COV2/RT-PCR (test Negative Not Detected, Negative, code = 1591119) See external report for linked test SARS-COV-2 PERFORMING LAB [facility] (test code = 9564902) Negative result for this test determines that SARS-CoV-2 RNA was not present in the specimen above the Limit of Detection (LOD). However, Negative results do not preclude SARS-CoV-2 infection and should not be used as the sole basis for treatment or patient management decisions. Negative results mustbe combined with clinical observations, patient history, and epidemiological information. A false negative result may occur if a specimen is improperly collected, transported or handled. A false negative result should be considered if patient's recent exposures or clinical presentation indicate that COVID-19 (SARS-CoV-2) is likely and diagnostic tests for other causes of illness are negative. Re-testing should be considered in cases of suspected false negatives.The limit of detection for this assay is 800 copies/mL.This SARS CoV-2 test is a real-time RT-PCR test intended for the qualitative detection of nucleic acid from SARS-CoV-2 in a nasopharyngeal swab specimen collected from individuals susp ected of COVID-19 by their healthcare provider.This test has not been Food and Drug Administration (FDA) cleared or approved. This is a modified version of an approved Emergency Use Authorization (EUA) and is in the process of review by the FDA. Once authorized by the FDA, the issued EUA will be effective until the declaration that circumstances exist justifying the authorization of the emergency use of in vitro diagnostic tests for detection and/or diagnosis of COVID-19 is terminated under Section 564(b)(2) of the Act or the EUA is revoked under Section 564(g) of the Act.Fact Sheet for Healthcare Providers:https://www.CricHQ.Filtr8/sites/default/files/product/documents/Fact_Shee j_WK_Wjprbyjuc_Bgvd_KUNA-MmU-2.pdfFact Sheet for Healthcare Patients:https://www.CricHQ.com/sites/default/files/product/ documents/Ifyp_Gqhwy_Nscklrqe_Lryd_LUTD-YnP-0.pdfPerforming Laboratory:[facility], [place] [id number] A1C 2020-09-10 12:12:00 Test Item Value Reference Range Interpretation Comments HEMOGLOBIN A1C (BEAKER) (test code = 5.3 % 4.3-6.1 368) COMPREHENSIVE METABOLIC [id number] 11:39:00 Test Item Value Reference Range Interpretation Comments TOTAL PROTEIN 7.5 gm/dL 6.0-8.3 (BEAKER) (test code = 770) ALBUMIN (BEAKER) 3.7 g/dL 3.5-5.0 (test code = 1145) ALKALINE PHOSPHATASE 102 U/L 40-150 (BEAKER) (test code = 346) BILIRUBIN TOTAL 0.9 mg/dL 0.2-1.2 (BEAKER) (test code = 377) SODIUM (BEAKER) (test 138 meq/L 136-145 code = 381) POTASSIUM (BEAKER) 3.7 meq/L 3.5-5.1 (test code = 379) CHLORIDE (BEAKER) 100 meq/L 98-107 (test code = 382) CO2 (BEAKER) (test 28 meq/L 22-29 code = 355) BLOOD UREA NITROGEN 16 mg/dL 7-21 (BEAKER) (test code = 354) CREATININE (BEAKER) 0.85 mg/dL 0.57-1.25 (test code = 358) GLUCOSE RANDOM 97 mg/dL 70-105 (BEAKER) (test code = 652) CALCIUM (BEAKER) 9.3 mg/dL 8.4-10.2 (test code = 697) AST (SGOT) (BEAKER) 15 U/L 5-34 (test code = 353) ALT (SGPT) (BEAKER) 21 U/L 6-55 (test code = 347) EGFR (BEAKER) (test 85 mL/min/1.73 ESTIMA SAM GFR IS code = 1092) sq m NOT ACCURATE CREATININE CLEARANCE IN PREDICTING GLOMERULAR FILTRATION RATE . ESTIMATED GFR I S NOT APPLICABLE FOR DIALYSIS PATIEN TS. Powder Room Attendant ID - CRYSTAL [id number] 11:39:00 Test Item Value Reference Range Interpretation Comments MAGNESIUM (BEAKER) (test code = 2.0 mg/dL 1.6-2.6 627) Powder Room Attendant ID - CRYSTAL CLIPID [id number] 11:39:00 Test Item Value Reference Range Interpretation Comments TRIGLYCERIDES (BEAKER) (test code = 63 mg/dL 540) CHOLESTEROL (BEAKER) (test code = 101 mg/dL 631) HDL CHOLESTEROL (BEAKER) (test code 31 mg/dL = 976) LDL CHOLESTEROL CALCULATED (BEAKER) 57 mg/dL (test code = 633) Triglyceride Reference Range: Low Risk <150 Borderline 150-199 High Risk 200-499 Very High Risk >=500Cholesterol Reference Range: Low Risk <200 Borderline 200-239 High Risk >240HDL Cholesterol Reference Range: Low Risk >=60 High Risk <40LDL Cholesterol Reference Range: Optimal <100 Near Optimal 100-129 Borderline 130-159 High 160-189 Very High >=190 Powder Room Attendant ID - CRYSTAL [id number] 11:26:00 Test Item Value Reference Range Interpretation Comments PARTIAL THROMBOPLASTIN TIME 28.1 seconds 22.5-36.0 (BEAKER) (test code = 760) PROTHROMBIN [id number] 11:25:00 Test Item Value Reference Range Interpretation Comments PROTIME (BEAKER) 13.8 seconds 11.9-14.2 (test code = 759) INR (BEAKER) (test 1.09 See_Comment [Automat ed message] code = 370) The system [employer] generated this result transmitted ref erence range: <=5.90. The reference range was not used to int erpret this result as normal/abnormal . Effective 10/27/2018: PT Reference Range ChangeNew: 11.9-14.2 Previous: 11.7- 14.7RECOMMENDED COUMADIN/WARFARIN INR THERAPY RANGESSTANDARD DOSE: 2.0-3.0 Includes: PROPHYLAXIS for venous thrombosis, systemic embolization; TREATMENT for venous thrombosis and/or pulmonary embolus.HIGH RISK: Target INR is2.5-3.5 for patients wiht mechanical heart valves.CBC W/PLT COUNT & AUTO [id number] 11:17:00 Test Item Value Reference Range Interpretation Comments WHITE BLOOD CELL COUNT (BEAKER) 3.7 K/ L 3.5-10.5 (test code = 775) RED BLOOD CELL COUNT (BEAKER) 3.54 M/ L 4.63-6.08 L (test code = 761) HEMOGLOBIN (BEAKER) (test code = 10.9 GM/DL 13.7-17.5 L 410) HEMATOCRIT (BEAKER) (test code = 34.9 % 40.1-51.0 L 411) MEAN CORPUSCULAR VOLUME (BEAKER) 98.6 fL 79.0-92.2 H (test code = 753) MEAN CORPUSCULAR HEMOGLOBIN 30.8 pg 25.7-32.2 (BEAKER) (test code = 751) MEAN CORPUSCULAR HEMOGLOBIN CONC 31.2 GM/DL 32.3-36.5 L (BEAKER) (test code = 752) RED CELL DISTRIBUTION WIDTH 15.3 % 11.6-14.4 H (BEAKER) (test code = 412) PLATELET COUNT (BEAKER) (test 165 K/CU MM 150-450 code = 756) MEAN PLATELET VOLUME (BEAKER) 11.1 fL 9.4-12.4 (test code = 754) NUCLEATED RED BLOOD CELLS 0 /100 WBC 0-0 (BEAKER) (test code = 413) NEUTROPHILS RELATIVE PERCENT 63 % (BEAKER) (test code = 429) LYMPHOCYTES RELATIVE PERCENT 22 % (BEAKER) (test code = 430) MONOCYTES RELATIVE PERCENT 10 % (BEAKER) (test code = 431) EOSINOPHILS RELATIVE PERCENT 4 % (BEAKER) (test code = 432) BASOPHILS RELATIVE PERCENT 0 % (BEAKER) (test code = 437) NEUTROPHILS ABSOLUTE COUNT 2.30 K/ L 1.78-5.38 (BEAKER) (test code = 670) LYMPHOCYTES ABSOLUTE COUNT 0.80 K/ L 1.32-3.57 L (BEAKER) (test code = 414) MONOCYTES ABSOLUTE COUNT (BEAKER) 0.38 K/ L 0.30-0.82 (test code = 415) EOSINOPHILS ABSOLUTE COUNT 0.16 K/ L 0.04-0.54 (BEAKER) (test code = 416) BASOPHILS ABSOLUTE COUNT (BEAKER) 0.01 K/ L 0.01-0.08 (test code = 417) IMMATURE GRANULOCYTES-RELATIVE 0 % 0-1 PERCENT (BEAKER) (test code = 8521)
[2021-05-21] MEDS ORDERED: NA CHLORIDE 0.9% 500 ML ONE (16:35)
[2021-05-21 16:37] LABS: Absolute Lymphocytes (CBC) 1.1 K/uL (0.7-4.9); Basophils % 0.8 % (0-1.3); Hematocrit 36.1 % (39.6-49.0); Lymphocytes % 26.3 % (15.3-44.8); MPV 8.7 fL (7.6-11.3); Protime INR 1.02; RBC Red Blood Cell Count 3.88 M/uL (4.33-5.43)
[2021-05-21 16:52] LABS: ALT/SGPT 22 U/L (12-78); AST/SGOT 9 U/L (15-37); Albumin 2.9 g/dL (3.4-5.0); Alkaline Phosphatase 98 U/L (45-117); BUN Blood Urea Nitrogen 17 mg/dL (7-18); Bicarbonate 28 mmol/L (21-32); Bilirubin Direct 0.1 mg/dL (0-0.2); Bilirubin Total 0.4 mg/dL (0.2-1.0); Glucose Level 96 mg/dL (74-106); Magnesium 2.1 mg/dL (1.8-2.4); NT PRO-BNP 214 pg/mL (<450); Protein, Total 7.5 g/dL (6.4-8.2); Sodium Level 140 mmol/L (136-145); Troponin (Emerg Dept Use Only) < 0.02 ng/mL (0.0-0.045)
--- NOTE | 2021-05-21 17:45 | RAD REPORT ---
EXAM DESCRIPTION: CT - Chest For Pe Angio - 05/21/2021 5:30 pm CLINICAL HISTORY: DYSPNEA COMPARISON: Angio Aorta For Dissection dated 04/20/2020 FINDINGS: Chest Wall: No suspicious thyroid nodules or pathologic lymphadenopathy. Lungs: Faint, mild bilateral ground-glass opacities. Pleura: No significant effusions or pneumothorax. Mediastinum/french: No pathologic lymphadenopathy. Pulmonary arteries/Aorta: No filling defect identified. No aortic aneurysm. Heart: No significant pericardial effusion. Cardiomegaly. Multi-vessel coronary artery disease. Upper abdomen: Low-density liver lesions which have benign imaging features. Moderate hiatal hernia. Bones: T11 compression fracture and T4 compression fractures. These are new since 04/20/2020. Both clark ve approximately 20% loss of height anteriorly and are likely subacute. Sternotomy. All CT scans are performed using dose optimization technique as appropriate and may include automated exposure control or mA/KV adjustment according to patient size. IMPRESSION: Negative for pulmonary embolism. Mild bilateral ground-glass opacities could reflect mul tifocal pneumonia such as Covid-19. T4 and T11 compression fractures which are new since 04/20/2020 but favored subacute.
--- NOTE | 2021-05-21 17:55 | ER ---
Nurse's Notes [facility] Name: Shyam Brantley Age: 85 yrs Sex: Male : 1935 Arrival Date: 05/21/2021 Time: 15:52 Bed 26 Private MD: Diagnosis: Dyspnea;Coronavirus infection, unspecified;Pneumonia due to SARS-associated coronavirus Presentation: 05/21 16:03 Chief complaint: Patient states: he was informed by his provider to come to the ap3 Emergency room for abnormal lab results for a CT-PE protocol. Coronavirus screen: At this time, the client does not indicate any symptoms associated with coronavirus-19. Ebola Screen: No symptoms or risks identified at this time. Initial Sepsis Screen: Does the patient meet any 2 criteria? No. Patient's initial sepsis screen is negative. Does the patient have a suspected source of infection? Yes:. Risk Assessment: Do you want to hurt yourself or someone else? Patient reports no desire to harm self or others. Onset of symptoms was May 21, 2021. 16:03 Method Of Arrival: Ambulatory ap3 16:03 Acuity: ZURI 3 ap3 Triage Assessment: 16:06 General: Appears in no apparent distress. comfortable, Behavior is calm, cooperative, ap3 appropriate for age. Pain: Denies pain. Neuro: Level of Consciousness is awake, alert, obeys commands, Oriented to person, place, time, situation, Appropriate for age Speech is normal. Respiratory: Reports shortness of breath on exertion Airway is patent Respiratory effort is even, unlabored, Respiratory pattern is regular, symmetrical. Historical: - Allergies: 16:04 PENICILLINS; ap3 - Home Meds: 16:04 rosuvastatin oral [Active]; ap3 - PMHx: 16:15 high cholesterol; iw - PSHx: 16:04 double bypass; cardiac stents; hernia repair; ap3 - Immunization history:: Client reports receiving the 2nd dose of the Covid vaccine, and booster. - Social history:: Smoking status: Patient denies any tobacco usage or history of. Screenin:05 Abuse screen: Denies threats or abuse. Nutritional screening: No deficits noted. ap3 Tuberculosis screening: No symptoms or risk factors identified. Fall Risk None identified. Assessment: 16:16 General: Appears in no apparent distress. Behavior is calm, cooperative. iw 18:05 Reassessment: Patient appears in no apparent distress at this time. Patient and/or iw family updated on plan of care and expected duration. Pain level reassessed. Patient is alert, oriented x 3, equal unlabored respirations, skin warm/dry/pink. 18:26 Reassessment: Patient appears in no apparent distress at this time. Patient and/or iw family updated on plan of care and expected duration. Pain level reassessed. Patient is alert, oriented x 3, equal unlabored respirations, skin warm/dry/pink. Vital Signs: 16:02 Pulse 63; Resp 17; Temp 98.2(TE); Pulse Ox 99% on R/A; ap3 16:05 Weight 75.75 kg; Height 5 ft. 8 in. (172.72 cm); ap3 16:05 Body Mass Index 25.39 (75.75 kg, 172.72 cm) ap3 ED Course: 15:52 Patient arrived in ED. rg4 16:04 Triage completed. ap3 16:06 Arm band placed on left wrist. ap3 16:07 Deandre Portillo MD is Attending Physician. micheline 16:15 Svetlana Brantley, SEJAL is Primary Nurse. iw 16:16 Patient has correct armband on for positive identification. iw 16:28 Initial lab(s) drawn, by me, sent to lab. Inserted saline lock: 20 gauge in left iw antecubital area, using aseptic technique. Blood collected. 17:30 CT Chest For PE Angio In Process Unspecified. EDMS 17:52 Jeremy Hoffman MD is Referral Physician. micheline 18:47 No provider procedures requiring assistance completed. IV discontinued, intact, iw bleeding controlled, No redness/swelling at site. Pressure dressing applied. Administered Medications: 16:47 Drug: NS 0.9% 500 ml Route: IV; Rate: bolus; Site: left antecubital; iw 17:30 Follow up: IV Status: Completed infusion iw 18:47 Drug: predniSONE 60 mg Route: PO; iw 18:48 Follow up: Response: No adverse reaction iw 18:47 Drug: Aspirin 162 mg Route: PO; iw 18:48 Follow up: Response: No adverse reaction iw 18:48 Drug: Zithromax (azithromycin) 500 mg Route: PO; iw 18:48 Follow up: Response: No adverse reaction iw 18:48 Follow up: Response: No adverse reaction iw 18:49 Follow up: Response: No adverse reaction iw 18:48 Drug: Pepcid (famotidine) 40 mg Route: PO; iw 18:49 Follow up: Response: No adverse reaction iw 18:48 Drug: Albuterol HFA Inhaler 4 puffs Route: Inhalation; iw Outcome: 17:54 Discharge ordered by MD. tobias 18:47 Discharged to home ambulatory, with family. iw 18:47 Condition: good 18:47 Discharge instructions given to patient, family, Instructed on discharge instructions, medication usage, Demonstrated understanding of instructions, follow-up care, medications, Prescriptions given X 5 18:48 Patient left the ED. iw Signatures: Dispatcher [employer] EDMS Deandre Portillo MD MD cha Williams, Irene RN RN Hanna Medina4 Neisha Jones RN RN ap3
--- NOTE | 2021-05-21 17:55 | EDPHYS ---
Physician Documentation [facility] Name: Shyam Brantley Age: 85 yrs Sex: Male : 1935 Arrival Date: 05/21/2021 Time: 15:52 Bed 26 Private MD: ED Physician Deandre Portillo HPI: 05/21 17:10 This 85 yrs old Male presents to ER via Ambulatory with complaints of micheline Abnormal Lab Results. 17:10 The patient has shortness of breath at rest, with light activity. Onset: The micheline symptoms/episode began/occurred 5 day(s) ago. Duration: The symptoms are continuous, and are steadily getting worse. The patient's shortness of breath is aggravated by nothing, is alleviated by nothing. Associated signs and symptoms: Pertinent positives: non-productive cough. Severity of symptoms: At their worst the symptoms were mild in the emergency department the symptoms are unchanged. The patient has experienced similar episodes in the past, several times. Historical: - Allergies: 16:04 PENICILLINS; ap3 - Home Meds: 16:04 rosuvastatin oral [Active]; ap3 - PMHx: 16:15 high cholesterol; iw - PSHx: 16:04 double bypass; cardiac stents; hernia repair; ap3 - Immunization history:: Client reports receiving the 2nd dose of the Covid vaccine, and booster. - Social history:: Smoking status: Patient denies any tobacco usage or history of. ROS: 17:12 Constitutional: Negative for fever, chills, and weight loss, Eyes: Negative for injury, micheline pain, redness, and discharge, ENT: Negative for injury, pain, and discharge, Neck: Negative for injury, pain, and swelling, Cardiovascular: Negative for chest pain, palpitations, and edema, Abdomen/GI: Negative for abdominal pain, nausea, vomiting, diarrhea, and constipation, Back: Negative for injury and pain, : Negative for injury, bleeding, discharge, and swelling, MS/Extremity: Negative for injury and deformity, Skin: Negative for injury, rash, and discoloration, Neuro: Negative for headache, weakness, numbness, tingling, and seizure, Psych: Negative for depression, anxiety, suicide ideation, homicidal ideation, and hallucinations, Allergy/Immunology: Negative for hives, rash, and allergies, Endocrine: Negative for neck swelling, polydipsia, polyuria, polyphagia, and marked weight changes, Hematologic/Lymphatic: Negative for swollen nodes, abnormal bleeding, and unusual bruising. 17:12 Respiratory: Positive for cough, with no reported sputum, shortness of breath, on exertion. Exam: 17:12 Constitutional: This is a well developed, well nourished patient who is awake, alert, micheline and in no acute distress. Head/Face: Normocephalic, atraumatic. Eyes: Pupils equal round and reactive to light, extra-ocular motions intact. Lids and lashes normal. Conjunctiva and sclera are non-icteric and not injected. Cornea within normal limits. Periorbital areas with no swelling, redness, or edema. ENT: Nares patent. No nasal discharge, no septal abnormalities noted. Tympanic membranes are normal and external auditory canals are clear. Oropharynx with no redness, swelling, or masses, exudates, or evidence of obstruction, uvula midline. Mucous membranes moist. Neck: Trachea midline, no thyromegaly or masses palpated, and no cervical lymphadenopathy. Supple, full range of motion without nuchal rigidity, or vertebral point tenderness. No Meningismus. Chest/axilla: Normal chest wall appearance and motion. Nontender with no deformity. No lesions are appreciated. Cardiovascular: Regular rate and rhythm with a normal S1 and S2. No gallops, murmurs, or rubs. Normal PMI, no JVD. No pulse deficits. Abdomen/GI: Soft, non-tender, with normal bowel sounds. No distension or tympany. No guarding or rebound. No evidence of tenderness throughout. Back: No spinal tenderness. No costovertebral tenderness. Full range of motion. Male : Normal genitalia with no discharge or lesions. Skin: Warm, dry with normal turgor. Normal color with no rashes, no lesions, and no evidence of cellulitis. MS/ Extremity: Pulses equal, no cyanosis. Neurovascular intact. Full, normal range of motion. Neuro: Awake and alert, GCS 15, oriented to person, place, time, and situation. Cranial nerves II-XII grossly intact. Motor strength 5/5 in all extremities. Sensory grossly intact. Cerebellar exam normal. Normal gait. Psych: Awake, alert, with orientation to person, place and time. Behavior, mood, and affect are within normal limits. 17:12 ECG was reviewed by the Attending Physician. 17:12 Respiratory: the patient does not display signs of respiratory distress, Respirations: normal, no acute changes, labored breathing, is not present, Breath sounds: decreased breath sounds, that are moderate, are heard in the left posterior lower lobe, right posterior middle lobe and right posterior lower lobe, Respiratory rate: 18 17:50 Musculoskeletal/extremity: DVT Exam: No signs of deep vein thrombosis. no pain, no micheline swelling, no tenderness, negative Homans' sign noted on exam, no appreciated bluish discoloration, no erythema, no increased warmth. Vital Signs: 16:02 Pulse 63; Resp 17; Temp 98.2(TE); Pulse Ox 99% on R/A; ap3 16:05 Weight 75.75 kg; Height 5 ft. 8 in. (172.72 cm); ap3 16:05 Body Mass Index 25.39 (75.75 kg, 172.72 cm) ap3 MDM: 16:07 Patient medically screened. micheline 17:14 Differential diagnosis: Anemia Anxiety Reaction asthma, Bronchitis CHF exacerbation, micheline Chronic Obstructive Pulmonary Disease pneumonia, Pneumothorax pulmonary edema, Pulmonary Embolism reactive airway disease. Antibiotic administration: Not indicated. The patient's Wells Deep Vein Thrombosis Score was calculated as follows: Total Score: 0-2 Pts- Low Risk. The patient's pulmonary embolism risk score was calculated as follows: Total Score: 0-2 points. This patient was found to be at low risk for a pulmonary embolism by using the Well's assessment criteria. Immunization status: Pneumococcal vaccine: Influenza vaccine: Data reviewed: vital signs, nurses notes, lab test result(s), EKG, radiologic studies, CT scan, plain films. Data interpreted: threat monitoring analyst: rate is 63 beats/min, rhythm is regular, Pulse oximetry: on room air is 99 %. Test interpretation: by ED physician or midlevel provider: ECG, plain radiologic studies. Counseling: I had a detailed discussion with the patient and/or guardian regarding: the historical points, exam findings, and any diagnostic results supporting the discharge/admit diagnosis, lab results, radiology results. 05/21 16:08 Order name: Basic Metabolic Panel; Complete Time: 16:55 [facility] 05/21 16:08 Order name: CBC with Diff; Complete Time: 16:55 [facility] 05/21 16:08 Order name: LFT's; Complete Time: 16:55 [facility] 05/21 16:08 Order name: Magnesium; Complete Time: 16:55 [facility] 05/21 16:08 Order name: NT PRO-BNP; Complete Time: 16:55 [facility] 05/21 16:08 Order name: PT-INR; Complete Time: 16:55 [facility] 05/21 16:08 Order name: Troponin (emerg Dept Use Only); Complete Time: 16:55 [facility] 05/21 16:08 Order name: CT Chest For PE Angio; Complete Time: 17:50 [facility] 05/21 16:08 Order name: EKG; Complete Time: 16:09 [facility] 05/21 16:08 Order name: Cardiac monitoring; Complete Time: 17:33 [facility] 05/21 16:08 Order name: EKG - Nurse/Tech; Complete Time: 17:33 [facility] 05/21 16:08 Order name: IV Saline Lock; Complete Time: 16:29 [facility] 05/21 16:08 Order name: Labs collected and sent; Complete Time: 16:29 [facility] 05/21 16:08 Order name: O2 Per Protocol; Complete Time: 17:33 [facility] 05/21 16:08 Order name: O2 Sat Monitoring; Complete Time: 17:33 [facility] EC:12 Rate is 55 beats/min. Rhythm is regular. QRS [place]cker[place] is Normal. [place] interval is normal. QRS micheline interval is normal. QT interval is normal. No Q waves. T waves are Normal. No ST changes noted. Clinical impression: NSR w/ Non-specific ST/T Changes, Sinus bradycardia, and No evidence of ischemia. Interpreted by me. Reviewed by me. Administered Medications: 16:47 Drug: NS 0.9% 500 ml Route: IV; Rate: bolus; Site: left antecubital; iw 17:30 Follow up: IV Status: Completed infusion iw 18:47 Drug: predniSONE 60 mg Route: PO; iw 18:48 Follow up: Response: No adverse reaction iw 18:47 Drug: Aspirin 162 mg Route: PO; iw 18:48 Follow up: Response: No adverse reaction iw 18:48 Drug: Zithromax (azithromycin) 500 mg Route: PO; iw 18:48 Follow up: Response: No adverse reaction iw 18:48 Follow up: Response: No adverse reaction iw 18:49 Follow up: Response: No adverse reaction iw 18:48 Drug: Pepcid (famotidine) 40 mg Route: PO; iw 18:49 Follow up: Response: No adverse reaction iw 18:48 Drug: Albuterol HFA Inhaler 4 puffs Route: Inhalation; iw Disposition Summary: 05/21/21 17:54 Discharge Ordered Location: Home micheline Problem: new micheline Symptoms: have improved micheline Condition: Stable micheline Diagnosis - Dyspnea micheline - Coronavirus infection, unspecified micheline - Pneumonia due to SARS-associated coronavirus micheline Followup: micheline - With: Private Physician - When: 2 - 3 days - Reason: Recheck today's complaints, Continuance of care, Re-evaluation by your physician Followup: micheline - With: Jeremy Hoffman MD - When: 2 - 3 days - Reason: Recheck today's complaints, Continuance of care, Re-evaluation by your physician Discharge Instructions: - Discharge Summary Sheet micheline - Viral Respiratory Infection, [id number] micheline - Aspirin and Your Heart micheline - COVID-19 micheline - COVID-19 Frequently Asked Questions [facility] - 10 Things You Can Do to Manage Your COVID-19 Symptoms at Home - [facility] micheline Forms: - Medication Reconciliation Form micheline - Thank You Letter micheline - Antibiotic Education micheline - Prescription Opioid Use micheline Prescriptions: - albuterol sulfate 90 mcg/actuation Inhalation aerosol powdr breath activated - inhale 2 puff by INHALATION route every 4-6 hours; 1 Pump; Refills: 0, Product micheline Selection Permitted - Pepcid 20 mg Oral Tablet - take 1 tablet by ORAL route every 12 hours for 30 days; 60 tablet; Refills: 0, [facility] Product Selection Permitted - Singulair 10 mg Oral Tablet - take 1 tablet by ORAL route At bedtime; 30 tablet; Refills: 0, Product micheline Selection Permitted - Zithromax Z-Carloz 250 mg Oral Tablet - take 1 tablet by ORAL route as directed for 5 days Day 1 - take two (2) tablets micheline one time. Day 2, 3, 4 , 5 take one (1) tablet once daily.; 6 tablet; Refills: 0, Product Selection Permitted - ivermectin 3 mg Oral tablet - take 4 tablet by ORAL route once daily 12 mg po daily on days 1, 3 and 5; 12 micheline tablet; Refills: 0, Product Selection Permitted - Prednisone 20 mg Oral Tablet - take 2 tablets by ORAL route once daily for 6 days; 12 tablet; Refills: 0, [facility] Product Selection Permitted Signatures: Deandre Blunt MD MD cha Williams, Irene, RN RN iw Neisha Jones RN RN ap3
[2021-05-21] MEDS ORDERED: ASPIRIN 81 MG CHEWABLE TABLET ONE (18:14)
[2021-05-21] MEDS ORDERED: FAMOTIDINE 20 MG TAB ONE (18:14)
[2021-05-21] MEDS ORDERED: predniSONE 20 MG TAB ONE (18:14)
[2021-05-21] MEDS ORDERED: AZITHROMYCIN 250 MG TAB ONE (18:14)
[2021-05-21] MEDS ORDERED: ALBUTEROL INHALER 60 PUFF/8 GM IH ONE (18:15)
[2021-05-21 19:41] VITALS: TEMP 98.2; O2SAT 99
== END 2021-05-21 18:48 | disposition home or self-care (01) ==
LOC: ER 15:50
DX: U07.1 COVID-19 (principal); J12.82 Pneumonia due to coronavirus disease 2019; E78.00 Pure hypercholesterolemia, unspecified; Z88.0 Allergy status to penicillin; Z95.818 Presence of other cardiac implants and grafts
CPT/HCPCS: 93005; 85025; 80048; 36415; 83735; 85610; 80076; 84484; 83880; 71275; 96360; 99284; Q9967; J7040; J7512

== ENCOUNTER 2022-08-25 16:53 | Inpatient (IN) | payer OTHER, MEDICARE ==
--- OUTSIDE RECORDS SUMMARY | 2022-08-25 17:01 | XMS REPORT | Continuity of Care Document ---
:1935 Author Organization [facility] t Address [address] [place] [address] Care Team Providers Name Role Phone Jeremy Jurado Primary Care Physician MARTIN CHARLES Attending Clinician Unavailable Doctor Unassigned, Laird Attending Clinician Unavailable Martin Sharma MD Attending Clinician MARTIN SHARMA Attending Clinician Unavailable Pob, Adc Lab Main Attending Clinician Unavailable Nurse, Adc Pob Immunization Attending Clinician Unavailable Marquis Hernandez DO Attending Clinician MARQUIS HERNANDEZ Attending Clinician Unavailable Martin Charles MD Attending Clinician [phone] Martin Crespo MD Attending Clinician Jluis Wiggins Attending Clinician Ammon LINK, Nahomi Sams Attending Clinician Aura Zhu Attending Clinician Jovon POST, Lily Attending Clinician Carl Carroll MD Attending Clinician Per Portillo Attending Clinician Unavailable Lora POST, Shaquille Attending Clinician Unavailable Kaylene Saldana MD Attending Clinician MARTIN CHARLES Admitting Clinician Unavailable Martin Sharma MD Admitting Clinician MARTIN SHARMA Admitting Clinician Unavailable Payers Payer Name Policy Type Policy Number Effective Date Expiration Date Maria E hutchinson MEDICARE PART A \T\ [id number] 1998 B 00:00:00 [facility] [id number] 2018 MEDICARE SUPPLEMENT 00:00:00 MEDICARE A B [id number] 1998 00:00:00 [facility] [id number] 2020 HEALTHCARE 00:00:00 Problems Condition Condition Condition Status Onset Resolution Last Treating Co mments Source Name Details Category Date Date Treatment Clinician Date Sinus Sinus Disease Active Univers bradycardi bradycardi 01-02 it y of a a 00:00: 00 Medical Branch Pneumonia Pneumonia Disease Active Uni vers due to due to 12-31 ity of COVID-19 COVID-19 00:00: [place] virus virus Medical Branch Acute on Acute on Disease Active 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:00: Rowena mosqueda 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 00:00: [place] involving involving 00 [facility] zuleima coronary 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 of chemehuevi chemehuevi heart heart without without angina angina pectoris pectoris 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 12-30 ity of nat[place]ure[place]ti [place] on on Acute Acute Disease Active [facility] respirator respirator 731 it y of y failure y failure [place] with 00 Medical hypoxia hypoxia Branch COVID-19 COVID-19 [facility] 00 [place] Coronary Coronary Disease Active [facility] S t artery artery 4-15 [facility] disease disease 00:00: Medical 00 [place] s/p ACB x s/p ACB x Disease Active [facility] 2 by 2 by -15 [facility] Araceli Charles 00:00: Medical 00 [place] Heart Heart Problem Resolve 2021-02-27 Paras deonna disease disease d 21:28:46 l (disorder) (disorder) He rmann Resolved Problem 02/27/2021 Medical Group Hyperchole Hyperchol Problem Resolve 2021-02-27 [facility] sterolemia esterolemi d 21:28:46 l (disorder) a Mamadou n (disorder) Resolved Problem 02/27/2021 Medical Group Hypertensi Hypertens Problem Res[facility]02[facility] 21:28[facility] l disorder, disorder, Herm ion systemic systemic arterial arterial (disorder) (disorder) Resolved Problem 02/27/2021 Medical [facility] Ventral Ventral Disease Active [facility] Allergies, Adverse Reactions, Alerts Allergy Allergy Status Severity Reaction(s) Onset Inactive Treating Comm ents Source Name Type Date Date Clinician PENICILL Allergy Active Hives [facility]: Medical 00 [place] Penicill Propensi Active Hives [facility] ty to 4-12 [facility] adverse 00:00: Medical reaction 00 [place] s Penicill Propensi Active Hives [facility] ty to 4-12 [facility] adverse 00:00: Medical reaction 00 [place] PENICILL Drug Active Hives Univers INS Class 5-15 ity of 00:00: [place] 00 Medical Branch Penicill Propensi Active Hives Univer s ins ty to 5-15 ity of adverse 00:00: [place] reaction 00 Medical s Branch Penicill Propensi Active Hives Univer s ins ty to 5-15 ity of adverse 00:00: [place] reaction 00 Medical s [place] NO KNOWN Allergy Active [facility] penicill penicill Active Memori a ins ins l Eyal Family History Family Member Diagnosis Comments Start Date Stop Date Source Natural brother Heart disease [facility] Natural father Heart disease [facility] Natural sister Heart disease [facility] Social History Social Habit Start Date Stop Date Quantity Comments Source History SDOH [facility] Alcohol Comment Medical C enter History SDOH [facility] Alcohol Std Medical Cente r Drinks History SDOH [facility] Alcohol Binge Medical Parag ter Exposure to 2021-11-03 2021-11-13 Not sure University of SARS-CoV-2 00:00:00 11:10:00 [facility] (event) Branch Alcohol intake 2021-04-17 2021-04-[address] [facility] 00:00:00 00:00:00 non-drinker Medical Cente r (finding) Tobacco use and 2020-09-04 2020-09-[address] Maulik kes exposure 00:00:00 00:00:00 Medical Center History SDOH 2020-09-04 2020-09-[address] [facility] Alcohol Frequency 00:00:00 00:00:00 [facility] Center Sex Assigned At [address] [facility]ulik kes 00:00:00 00:00:00 [facility] Center Smoking Status Start Date Stop Date Source Social History [facility] Medications Ordered Filled Start Stop Current Ordering Indication Dosage Frequency Signature Comments Components Source Medication Medication Date Date Medication? Clinician (SIG) Name Name Psyllium Yes 1{packe Take 1 Univ ers Husk-Sucros 6-24 t} Packet by ity of e 3.4 02:33: mouth as [place] gram/7 gram 01 needed. Medic al Powd Branch neomycin-po 2021- No PRN, Unive rs lymyxin-dex 11-20 Starting ity of amethasone 18:28: 18:46 [place] (MAXITROL) 00 :37 11/20/21 at Med ical 3.5 1328, Branch mg/g-10,000 Until Thu unit/g-0.1 11/20/21 at % 1346, ophthalmic Routine, ointment Intra-op sodium 2021- No PRN, Univers chloride 11-20 Starting ity of (NS) 18:27: 18:46 on Thu [place] injection 00 :37 11/20/21 at Medi zuleima 1327, Branch Until Thu11/20/21 at 1346, Routine, Intra-op dexamethaso 2021- No PRN, Unive rs ne 11-20 Starting ity of (DECADRON 18:27: 18:46 on Thu [place] PHOSPHATE) 00 :37 11/20/21 at [facility] ical injection 1327, Branch Until Thu11/20/21 at 1346, Routine, Intra-op ceFAZolin 2021- No PRN, Univers (ANCEF) 11-20 Starting ity of injection 18:27: 18:46 on Thu [place] 00 :37 11/20/21 at Medical 1327, Branch Until Thu11/20/21 at 1346, DONNY, Intra-op carbachoL 2021- No PRN, Univers (MIOSTAT) 11-20 Starting ity o f 0.01 % 18:25: 18:46 on Thu [place] intraocular 00 :37 11/20/21 at Mo dical injection 1325, Branch Until Thu11/20/21 at 1346, Routine, Intra-op EPINEPHrine 2021- No PRN, Unive rs 1:1,000 (1 11-20 Starting ity of mg/mL) 18:14: 18:46 on Thu [place] (ADRENALIN) 00 :37 11/20/21 at Mo dical injection 1314, Branch Until Thu11/20/21 at 1346, Routine, Intra-op chondroitin 2021- No PRN, Unive rs sulf-sod 11-20 Starting ity of hyaluronate 18:14: 18:46 on Wed [place] as (DUOVISC 00 :37 11/20/21 at Medic al VISCO 1314, Branch ELASTIC) Until Thu intraocular 11/20/21 at injection 1346, Routine, Intra-op balanced 2021- No PRN, Univers salt irrig 11-20 Starting ity of soln comb1 18:14: 18:46 [place] (BSS PLUS) 00 :37 11/20/21 at [facility] ical ophthalmic 1314, Branch solution Until Thu 500 mL bag 11/20/21 at 1346, Routine, Intra-op water for 2021- No PRN, Univers irrigation 11-20 Starting ity of irrigation 18:09: 18:46 [place] solution 00 :37 11/20/21 at Medic al 1309, Branch Until Thu11/20/21 at 1346, Routine, Intra-op Hyaluronida 2021- No PRN, Unive rs se, Human 11-20 Starting ity o f Recomb. 18:06: 18:46 on Thu [place] (HYLENEX) 00 :37 11/20/21 at Medi zuleima injection 1306, Branch Until Thu11/20/21 at 1346, Routine, Intra-op eye block 2021- No PRN, Univers syringe 11 11-20 Starting ity of mL 18:06: 18:46 on Thu [place] 00 :37 11/20/21 at Medical 1306, Branch Until Thu11/20/21 at 1346, Intra-op cyclopent 2021- No .5mL 0.5 mL, Univ ers 1%-tropic 11-20 Right Eye, ity of 1%-phenyl 16:30: 16:29 ONCE, 1 [place] 2.5%-ketor 00 :00 dose, On Medic al 0.5% Thu Branch (MYDRIATIC 11/20/21 at #5) 1130, ophthalmic Routine, solution DSU Pre-op syringe 0.5 mL lactated 2021- No 1000mL at 42 Unive rs ringers IV 11-20 mL/hr, ity of infusion 16:30: 16:29 1,000 mL, Jack as 1,000 mL 00 :00 IV Medical Infusion, Branch ONCE, 1 dose, On Thu11/20/21 at 1130, Routine, DSU Pre-op cyclopent 2021- No .5mL 0.5 mL, Univ ers 1%-tropic 11-20 Right Eye, ity of 1%-phenyl 16:30: 16:29 ONCE, 1 [place] 2.5%-ketor 00 :00 dose, On Medic al 0.5% Thu Branch (MYDRIATIC 11/20/21 at #5) 1130, ophthalmic Routine, solution DSU Pre-op syringe 0.5 mL lactated No 1000mL at 42 Unive rs ringers IV 11-20 06-22 mL/hr, ity of infusion 16:30: 16:29 1,000 mL, Jack as 1,000 mL 00 :00 IV Medical Infusion, Branch ONCE, 1 dose, On Thu11/20/21 at 1130, Routine, DSU Pre-op mirabegron Yes Take by [facility] [place] [facility] ers (MYRBETRIQ) 6- mouth ity of 25 mg 15:56: daily. [place] tablet 35 Medical Branch aspirin 81 Yes 81mg Take 81 mg U nivers mg chewable 22 by mouth ity of tablet 15:56: daily. [place] [address] Medical Branch rosuvastati Yes 20mg Take 20 mg Univers n 20 mg -22 by mouth ity of tablet 15:56: at [place] [address] bedtime. Medical Branch ferrous Yes 325mg Take 325 Unive rs sulfate 6-22 mg by ity of (IRON) 325 15:56: mouth [place] mg (65 mg 35 daily. Medical iron) Branch tablet folic Yes Take by Univers acid/multiv 11-20 mouth. ity of it-min/lute 15:56: [place] in (CENTRUM 35 Medical SILVER Branch ORAL) albuterol Yes 2{puff} Inhale 2 U nivers 90 6-22 Puffs ity of mcg/actuati 15:56: every 6 [place] as on inhaler 35 (six) Medical hours as Branch needed for Wheezing or Shortness of Breath. Psyllium Yes 1{packe Take 1 Univ ers Husk-Sucros 6 t} Packet by ity of e 3.4 15:56: mouth as [place] gram/7 gram 35 needed. Medic al Powd Branch mirabegron Yes Take by [facility] [place] [facility] ers (MYRBETRIQ) 6-22 mouth ity of 25 mg 15:56: daily. [place] tablet 35 Medical Branch aspirin 81 Yes 81mg Take 81 mg U nivers mg chewable -22 by mouth ity of tablet 15:56: daily. [place] [address] Medical Branch rosuvastati Yes 20mg Take 20 mg Univers n 20 mg 6-22 by mouth ity of tablet 15:56: at [place] [address] bedtime. Medical Branch ferrous Yes 325mg Take 325 Unive rs sulfate 6-22 mg by ity of (IRON) 325 15:56: mouth [place] mg (65 mg 35 daily. Medical iron) Branch tablet folic 0 Yes Take by Univers acid/multiv 6-22 mouth. ity of it-min/lute 15:56: [place] in ([facility] 35 Medical SILVER Branch ORAL) albuterol Yes 2{puff} Inhale 2 U nivers 90 6-22 Puffs ity of mcg/actuati 15:56: every 6 [place] as on inhaler 35 (six) Medical hours as Branch needed for Wheezing or Shortness of Breath. Psyllium Yes 1{packe Take 1 Univ ers Husk-Sucros 6-22 t} Packet by ity of e 3.4 15:56: mouth as [place] gram/7 gram 35 needed. Medic al Powd Branch mirabegron Yes Take by Univ ers (MYRBETRIQ) 6-22 mouth ity of 25 mg 15:56: daily. [place] tablet 35 Medical Branch aspirin 81 Yes 81mg Take 81 mg U nivers mg chewable 6-22 by mouth ity of tablet 15:56: daily. [place] [address] Medical Branch rosuvastati 0 Yes 20mg Take 20 mg Univers n 20 mg 6-22 by mouth ity of tablet 15:56: at [place] [address] bedtime. Medical Branch ferrous Yes 325mg Take 325 Unive rs sulfate 6-22 mg by ity of (IRON) 325 15:56: mouth [place] mg (65 mg 35 daily. Medical iron) Branch tablet folic 0 Yes Take by Univers acid/multiv 6-22 mouth. ity of it-min/lute 15:56: [place] in ([facility] 35 Medical SILVER Branch ORAL) albuterol Yes 2{puff} Inhale 2 U nivers 90 6-22 Puffs ity of mcg/actuati 15:56: every 6 [place] as on inhaler 35 (six) Medical hours as Branch needed for Wheezing or Shortness of Breath. Psyllium Yes 1{packe Take 1 Univ ers Husk-Sucros 6-22 t} Packet by ity of e 3.4 15:56: mouth as [place] gram/7 gram 35 needed. Medic al Powd Branch mirabegron Yes Take by Univ ers (MYRBETRIQ) 6-22 mouth ity of 25 mg 15:56: daily. [place] tablet 35 Medical Branch aspirin 81 0 Yes 81mg Take 81 mg U nivers mg chewable 6-22 by mouth ity of tablet 15:56: daily. [place] 35 Medical Branch rosuvastati Yes 20mg Take 20 mg Univers n 20 mg 6-22 by mouth ity of tablet 15:56: at [place] [address] bedtime. Medical Branch ferrous Yes 325mg Take 325 Unive rs sulfate 6-22 mg by ity of (IRON) 325 15:56: mouth [place] mg (65 mg 35 daily. Medical iron) Branch tablet folic Yes Take by Univers acid/multiv 6-22 mouth. ity of it-min/lute 15:56: [place] in (CENTRUM 35 Medical SILVER Branch ORAL) albuterol Yes 2{puff} Inhale 2 U nivers 90 6-22 Puffs ity of mcg/actuati 15:56: every 6 [place] as on inhaler 35 (six) Medical hours as Branch needed for Wheezing or Shortness of Breath. Psyllium Yes 1{packe Take 1 Univ ers Husk-Sucros 5-19 t} Packet by ity of e 3.4 09:50: mouth as [place] gram/7 gram 21 [facility]. [facility] Psyllium Yes 1{packe Take 1 Univ ers Husk-Sucros 5-19 t} Packet by ity of e 3.4 09:50: mouth as [place] gram/7 gram 21 needed. [facility] mirabegron Yes Take by Univ ers (MYRBETRIQ) 5-19 mouth ity of 25 mg 09:49: daily. [place] tablet 46 Medical Branch aspirin 81 Yes 81mg Take 81 mg U nivers mg chewable 5-19 by mouth ity of tablet 09:49: daily. [place] [address] Medical Branch rosuvastati Yes 20mg Take 20 mg Univers n 20 mg 5-19 by mouth ity of tablet 09:49: at [place] [address] bedtime. Medical Branch ferrous Yes 325mg Take 325 Unive rs sulfate 5-19 mg by ity of (IRON) 325 09:49: mouth [place] mg (65 mg 46 daily. Medical iron) Branch tablet folic Yes Take by Univers acid/multiv 5-19 mouth. ity of it-min/lute 09:49: [place] in ([place] [address] Medical SILVER Branch ORAL) albuterol Yes 2{puff} Inhale 2 U nivers 90 5-19 Puffs ity of mcg/actuati 09:49: every 6 [place] as on inhaler 46 (six) Medical hours as Branch needed for Wheezing or Shortness of Breath. mirabegron Yes Take by Univ ers (MYRBETRIQ) 5-19 mouth ity of 25 mg 09:49: daily. [place] [address] Medical Branch aspirin 81 Yes 81mg Take 81 mg U nivers mg chewable 5-19 by mouth ity of tablet 09:49: daily. [address] Branch rosuvastati Yes 20mg Take 20 mg Univers n 20 mg 5-19 by mouth ity of tablet 09:49: at [place] [address] bedtime. Medical Branch ferrous Yes 325mg Take 325 Unive rs sulfate 5-19 mg by ity of (IRON) 325 09:49: mouth [place] mg (65 mg 46 daily. Medical iron) Branch tablet folic Yes Take by Univers acid/multiv 5-19 mouth. ity of it-min/lute 09:49: [place] in ([place] [address] Medical SILVER Branch ORAL) albuterol Yes 2{puff} Inhale 2 U nivers 90 5-19 Puffs ity of mcg/actuati 09:49: every 6 [place] as on inhaler 46 (six) Medical hours as Branch needed for Wheezing or Shortness of Breath. aspirin 81 2020-06 Yes 81mg QD Take [address] MG EC 1-16 by mouth [facility] tablet 15:58: daily. Medical 02 [place] multivitami 2020-06 Yes 1{capsu QD Take [address] n capsule 1-16 le} capsule by Luke s 15:58: mouth Medical 02 daily. [place] psyllium 2020-06 Yes 1{packe Take [address] [facility] (METAMUCIL 1-16 t} packet by Luke s SUGAR-FREE) 15:58: mouth Medic al 3.4 gram 02 daily as Center packet needed. aspirin 81 2020-06 Yes 81mg QD Take [address] MG EC 1-16 by mouth [facility] tablet 15:58: daily. Medical 02 [place] multivitala 2020-06 Yes 1{capsu QD Take [address] n capsule 1-16 le} capsule by Luke s 15:58: mouth Medical 02 daily. [place] psyllium 2020-06 Yes 1{packe Take [address] [facility] (METAMUCIL 1-16 t} packet by Luke s SUGAR-FREE) 15:58: mouth Medic al 3.4 gram 02 daily as Center packet needed. aspirin 81 2020-06 Yes 81mg QD Take [address] MG EC 1-16 by mouth [facility] tablet 15:58: daily. Medical 02 [place] [facility] 2020-06 Yes 1{capsu QD Take [address] n capsule 1-16 le} capsule by Luke s 15:58: mouth Medical 02 daily. [place] psyllium 2020-06 Yes 1{packe Take [address] [facility] (METAMUCIL 1-16 t} packet by dINK s SUGAR-FREE) 15:58: mouth Medic al 3.4 gram 02 daily as Center packet needed. acetaminoph 2020-06- No 1{tbl} Take 1-[address] en-codeine 1-16 11-26 tablets by Maulik hartman (Tylenol-Co 00:00: 23:59 mouth Medi zuleima deine #3) 00 :00 every 6 Center 300-30 mg (six) per tablet hours as needed for up to 10 days. Max Daily Amount: 8 tablets acetaminoph 2020-06- No 1{tbl} Take 1-[address] en-codeine 1-16 11-26 tablets by Maulik hartman (Tylenol-Co 00:00: 23:59 mouth Medi zuleima deine #3) 00 :00 every 6 Center 300-30 mg (six) per tablet hours as needed for up to 10 days. Max Daily Amount: 8 tablets mirabegron Yes Take by [facility] [place] [facility] ers (MYRBETRIQ) 8-13 mouth ity of 25 mg 18:08: daily. [address] aspirin 81 Yes 81mg Take 81 mg U nivers mg chewable 8-13 by mouth ity of tablet 18:08: daily. [place] 42 Medical Branch rosuvastati Yes 20mg Take 20 mg Univers n 20 mg 8-13 by mouth ity of tablet 18:08: at [place] 42 bedtime. Medical Branch ferrous Yes 325mg Take 325 Unive rs sulfate 8-13 mg by ity of (IRON) 325 18:08: mouth [place] mg (65 mg 42 daily. Medical iron) Branch tablet folic Yes Take by Univers acid/multiv 8-13 mouth. ity of it-min/lute 18:08: [place] in (CENTR 42 Medical SILVER Branch ORAL) albuterol Yes 2{puff} Inhale 2 U nivers 90 8-13 Puffs ity of mcg/actuati 18:08: every 6 Jack as on inhaler 42 (six) Medical hours as Branch needed for Wheezing or Shortness of Breath. ascorbic Yes [id number] 500mg Take 1 Univers acid, 8 [id number] tablet by ity of vitamin C, 00:00: mouth [place] 500 mg 00 daily. Medical tablet Branch cholecalcif Yes [id number] 1000U Take 1 Univers shannon, 8 [id number] tablet by ity of vitamin D3, 00:00: mouth [place] 25 mcg 00 daily. Medical (1,000 Branch unit) tablet magnesium Yes [id number] 30mL Take 30 mL Univers hydroxide 8 [id number] by mouth 3 i ty of 400 mg/5 mL 00:00: (three) Jack as suspension 00 times Medical daily as Branch needed for Constipati on. ascorbic Yes [id number] 500mg Take 1 Univers acid, 813 [id number] tablet by ity of vitamin C, 00:00: mouth [place] 500 mg 00 daily. Medical tablet Branch cholecalcif Yes [id number] 1000U Take 1 Univers shannon, 8 [id number] tablet by ity of vitamin D3, 00:00: mouth [place] 25 mcg 00 daily. Medical (1,000 Branch unit) tablet magnesium Yes [id number] 30mL Take 30 mL Univers hydroxide 8-13 [id number] by mouth 3 i ty of 400 mg/5 mL 00:00: (three) Jack as suspension 00 times Medical daily as Branch needed for Constipati on. ascorbic 2020-0 Yes [id number] 500mg Take 1 Univers acid, 8-13 [id number] tablet by ity of vitamin C, 00:00: mouth [place] 500 mg 00 daily. Medical tablet Branch cholecalcif 2020-0 Yes [id number] 1000U Take 1 Univers shannon, 8-13 [id number] tablet by ity of vitamin D3, 00:00: mouth [place] 25 mcg 00 daily. Medical (1,000 Branch unit) tablet magnesium 2020-0 Yes [id number] 30mL Take 30 mL Univers hydroxide 8-13 [id number] by mouth 3 i ty of 400 mg/5 mL 00:00: (three) Jack as suspension 00 times Medical daily as Branch needed for Constipati on. ascorbic 2020-0 Yes [id number] 500mg Take 1 Univers acid, 8-13 [id number] tablet by ity of vitamin C, 00:00: mouth [place] 500 mg 00 daily. Medical tablet Branch cholecalcif 2020-0 Yes [id number] 1000U Take 1 Univers shannon, 8-13 [id number] tablet by ity of vitamin D3, 00:00: mouth [place] 25 mcg 00 daily. Medical (1,000 Branch unit) tablet magnesium 2020-0 Yes [id number] 30mL Take 30 mL Univers hydroxide 8-13 [id number] by mouth 3 i ty of 400 mg/5 mL 00:00: (three) Jack as suspension 00 times Medical daily as Branch needed for Constipati on. ascorbic 2020-0 Yes [id number] 500mg Take 1 Univers acid, 8-13 [id number] tablet by ity of vitamin C, 00:00: mouth [place] 500 mg 00 daily. Medical tablet Branch cholecalcif 2020-0 Yes [id number] 1000U Take 1 Univers shannon, 8-13 [id number] tablet by ity of vitamin D3, 00:00: mouth [place] 25 mcg 00 daily. Medical (1,000 Branch unit) tablet magnesium 2021-0 Yes [id number] 30mL Take 30 mL Univers hydroxide 8-13 [id number] by mouth 3 i ty of 400 mg/5 mL 00:00: (three) Jack as suspension 00 times Medical daily as Branch needed for Constipati on. ascorbic 2020-0 Yes [id number] 500mg Take 1 Univers acid, 813 [id number] tablet by ity of vitamin C, 00:00: mouth [place] 500 mg 00 daily. Medical tablet Branch cholecalcif 2020-0 Yes [id number] 1000U Take 1 Univers shannon, 8-13 [id number] tablet by ity of vitamin D3, 00:00: mouth [place] 25 mcg 00 daily. Medical (1,000 Branch unit) tablet magnesium 2020-0 Yes [id number] 30mL Take 30 mL Univers hydroxide 813 [id number] by mouth 3 i ty of 400 mg/5 mL 00:00: (three) Jack as suspension 00 times Medical daily as Branch needed for Constipati on. ascorbic 2020-0 Yes [id number] 500mg Take 1 Univers acid, 8 [id number] tablet by ity of vitamin C, 00:00: mouth [place] 500 mg 00 daily. Medical tablet Branch cholecalcif 0 Yes [id number] 1000U Take 1 Univers shannon, 8 [id number] tablet by ity of vitamin D3, 00:00: mouth [place] 25 mcg 00 daily. Medical (1,000 Branch unit) tablet magnesium 0 Yes [id number] 30mL Take 30 mL Univers hydroxide 8 [id number] by mouth 3 i ty of 400 mg/5 mL 00:00: (three) Jack as suspension 00 times Medical daily as Branch needed for Constipati on. 24 HR Yes 25 mg = 1 Memoria mirabegron 6-21 tab, PO, l 25 MG 13:52: Daily, # [place] Extended 00 30 tab, 5 Release Refill(s), Tablet Pharmacy: [Myrbetriq] [id number], 172.72, cm, 11/19/20 8:29:00 CDT, Height, 68.636, kg, 11/19/20 8:29:00 CDT, Weight 24 HR Yes 25 mg = 1 Memoria mirabegron 6-21 tab, PO, l 25 MG 13:52: Daily, # [place] Extended 00 30 tab, 5 Release Refill(s), Tablet Pharmacy: [Myrbetriq] [id number], 172.72, cm, 11/19/20 8:29:00 CDT, Height, 68.636, kg, 11/19/20 8:29:00 CDT, Weight rosuvastati 2020-2021- No 20mg QD Take [address] [facility] (CRESTOR) 09-19 tablet (20 L ukes 20 MG 00:00: 23:59 mg total) Medica l tablet 00 :00 by mouth Center daily. rosuvastati 2021- No 20mg QD Take [address] [facility] n (CRESTOR) 09-19 tablet (20 L ukes 20 MG 00:00: 23:59 mg total) Medica l tablet 00 :00 by mouth Center daily. rosuvastati 2021- No 20mg QD Take [address] [facility] n (CRESTOR) 09-19 tablet (20 L ukes 20 MG 00:00: 23:59 mg total) Medica l tablet 00 :00 by mouth Center daily. amiodarone 2020- No 200mg Q.5D Take [address] [facility] [address] (PACERONE) 09-18 tablet [facility] 200 MG 00:00: 00:00 (200 mg Medical tablet 00 :00 total) by Center mouth 2 (two) times daily. apixaban 2020- No 5mg Q.5D Take [address] [facility] (ELIQUIS) 5 09-18 tablet (5 Maulik kes mg Tab 00:00: 00:00 mg total) Medic al tablet 00 :00 by mouth 2 Center (two) times daily. cetirizine 2020- No 10mg QD Take [address] [facility] (ZyrTEC) 10 09-18 tablet (10 L ukes MG tablet 00:00: 00:00 mg total) Me dical 00 :00 by mouth Center daily. fluticasone 2020- No 1{spray QD [address] [facility] propionate 09-18 } Nasal [facility] (FLONASE) 00:00: 00:00 route Medica l 50 00 :00 daily. Center mcg/actuati on nasal spray amiodarone 2020- No 200mg Q.5D Take [address] [facility] [address] (PACERONE) 09-18 tablet [facility] 200 MG 00:00: 00:00 (200 mg Medical tablet 00 :00 total) by Center mouth 2 (two) times daily. apixaban 2020- No 5mg Q.5D Take [address] [facility] [address] (ELIQUIS) 5 09-18 tablet (5 Maulik kes mg Tab 00:00: 00:00 mg total) Medic al tablet 00 :00 by mouth 2 Center (two) times daily. cetirizine 2020- No 10mg QD Take [address] [facility] [address] (ZyrTEC) 10 09-18 tablet (10 L ukes MG tablet 00:00: 00:00 mg total) Me dical 00 :00 by mouth Center daily. fluticasone 2020- No 1{spray QD [address] [facility] propionate 09-18 } Nasal [facility] (FLONASE) 00:00: 00:00 route Medica l 50 00 :00 daily. Center mcg/actuati on nasal spray guaiFENesin 2020- No 600mg Q.5D Take [address] (mucINEX) 09-18 04-30 tablet [facility] 600 mg 12 00:00: 23:59 (600 mg Medi zuleima hr tablet 00 :00 total) by Cente r mouth 2 (two) times daily for 10 days. traMADoL 2020- No 50mg Take [address] [facility] (ULTRAM) 50 - 04-30 tablet (50 [facility] mg tablet 00:00: 23:59 mg total) Me dical 00 :00 by mouth Center every 6 (six) hours as needed for up to 10 days. Max Daily Amount: 200 mg guaiFENesin 2020- No 600mg Q.5D Take [address] [facility] (mucINEX) 09-18 04-30 [facility] 600 mg 12 00:00: 23:59 (600 mg Medi zuleima hr tablet 00 :00 total) by Cente r mouth 2 (two) times daily for 10 days. traMADoL 2020- No 50mg Take [address] [facility] (ULTRAM) 50 - 04-30 tablet (50 [facility] mg tablet 00:00: 23:59 mg total) Me dical 00 :00 by mouth Center every 6 (six) hours as needed for up to 10 days. Max Daily Amount: 200 mg benzonatate 2020- No 100mg Take [address] [facility] [address] [facility] (TESSALON) -18 09- capsule [facility] 100 MG 00:00: 23:59 (100 mg Medical capsule 00 :00 total) by Center mouth 3 (three) times daily as needed for Cough for up to 7 days. benzonatate 2020- No 100mg Take [address] [facility] [address] (TESSALON) -18 09- capsule [facility] 100 MG 00:00: 23:59 (100 mg Medical capsule 00 :00 total) by Center mouth 3 (three) times daily as needed for Cough for up to 7 days. chlorhexidi 2020- No [facility] (HIBICLENS) 21:00: 10:11 Medic al external 00 :00 Center liquid 4% chlorhexidi 2020- No [facility] (HIBICLENS) 21:00: 10:11 Medic al external 00 :00 Center liquid 4% clopidogreL 2020- No 75mg QD Take [address] [facility] (PLAVIX) 75 2-17 04-20 by mouth [facility] mg tablet 00:00: 00:00 daily. Medic al 00 :00 Center atorvastati 2020- No 80mg QD Take [address] [facility] (LIPITOR) 2-17 04-20 by mouth [facility] 80 MG 00:00: 00:00 daily. Medical tablet 00 :00 [place] clopidogreL 2020- No 75mg QD Take [address] [facility] (PLAVIX) 75 2-17 04-20 by mouth [facility] mg tablet 00:00: 00:00 daily. Medic al 00 :00 Center atorvastati 2020- No 80mg QD Take [address] [facility] (LIPITOR) 2-17 04-20 by mouth [facility] 80 MG 00:00: 00:00 daily. Medical tablet 00 :00 Center Immunizations Ordered Filled Immunization Date Status Comments [facility] Immunization Name Name SARS-COV-2 COVID-19 2021-04-29 Completed Unive rsity of MODERNA 0.25ML 00:00:00 [place] [facility] BOOSTER VACCINE Branch SARS-COV-2 COVID-19 2021-04-29 Completed Unive rsity of MODERNA 0.25ML 00:00:00 [place] [facility] BOOSTER VACCINE [facility] SARS-COV-2 COVID-19 2021-04-29 Completed Unive rsity of MODERNA 0.25ML 00:00:00 [place] [facility] BOOSTER VACCINE Branch SARS-COV-2 COVID-19 2021-04-29 Completed Unive rsity of MODERNA 0.25ML 00:00:00 [place] [facility] BOOSTER VACCINE Branch SARS-COV-2 COVID-19 2021-04-29 Completed Unive rsity of MODERNA 0.25ML 00:00:00 [place] [facility] BOOSTER VACCINE Branch SARS-COV-2 COVID-19 2021-04-29 Completed Unive rsity of MODERNA BOOSTER 00:00:00 [place] [facility] ical VACCINE Branch SARS-COV-2 COVID-19 2021-04-29 Completed Unive rsity of MODERNA 0.25ML 00:00:00 [place] [facility] BOOSTER VACCINE Branch SARS-COV-2 COVID-19 2020-07-10 Completed Unive rsity of MODERNA 0.5ML 00:00:00 [place] [facility] BOOSTER VACCINE Branch SARS-COV-2 COVID-19 2020-07-10 Completed Unive rsity of MODERNA 0.5ML 00:00:00 [place] [facility] BOOSTER VACCINE Branch SARS-COV-2 COVID-19 2020-07-10 Completed Unive rsity of MODERNA 0.5ML 00:00:00 [place] [facility] BOOSTER VACCINE Branch SARS-COV-2 COVID-19 2020-07-10 Completed Unive rsity of MODERNA 0.5ML 00:00:00 [place] [facility] BOOSTER VACCINE Branch SARS-COV-2 COVID-19 2020-06-13 Completed Unive rsity of MODERNA 0.5ML 00:00:00 [place] [facility] BOOSTER VACCINE Branch SARS-COV-2 COVID-19 2020-06-13 Completed Unive rsity of MODERNA 0.5ML 00:00:00 [place] [facility] BOOSTER VACCINE Branch SARS-COV-2 COVID-19 2020-06-13 Completed Unive rsity of MODERNA 0.5ML 00:00:00 [place] [facility] BOOSTER VACCINE Branch SARS-COV-2 COVID-19 2020-06-13 Completed Unive rsity of MODERNA 0.5ML 00:00:00 [place] [facility] BOOSTER VACCINE [facility] Vital Signs Vital Name Observation Time Observation Value Comments Source HEIGHT 2020-09-13 06:00:00 172.7 cm WEIGHT 2020-09-13 06:00:00 72.712 kg HEIGHT 2020-09-12 09:15:00 172.7 cm WEIGHT 2020-09-12 09:15:00 72.122 kg Systolic blood 2021-11-20 19:20:00 157 mm[Hg] [facility] [place] [facility] Diastolic blood 2021-11-20 19:20:00 72 mm[Hg] [facility] [place] [facility] Heart rate 2021-11-20 19:20:00 56 /min [facility] [place] [facility] Respiratory rate 2021-11-20 19:20:00 22 /min [facility] [place] [facility] Oxygen saturation in 2021-11-20 19:20:00 98 /min [facility] Arterial blood by [place] [facility] [facility] Pulse oximetry Branch Body temperature 2021-11-20 18:31:00 36.5 Amanda [facility] [place] [facility] Body height 2021-11-08 13:36:00 162.7 cm [facility] [place] [facility] Body weight 2021-11-08 13:36:00 69 kg [facility] [place] [facility] BMI 2021-11-08 13:36:00 26.07 kg/m2 [facility] [place] [facility] Systolic blood 2021-11-20 16:19:00 160 mm[Hg] [facility] Diastolic blood 2021-11-20 16:19:00 67 mm[Hg] [facility] Heart rate 2021-11-20 16:19:00 57 /min [facility] [place] [facility] Body temperature 2021-11-20 16:19:00 36.72 Amanda [facility] [place] [facility] Respiratory rate 2021-11-20 16:19:00 18 /min [facility] [place] [facility] Oxygen saturation in 2021-11-20 16:19:00 98 /min [facility] Arterial blood by [employer] zuleima Pulse oximetry Branch Body height 2021-11-08 13:36:00 162.7 cm [facility] Body weight 2021-11-08 13:36:00 69 kg [facility] BMI 2021-11-08 13:36:00 26.07 kg/m2 [facility] HEIGHT 2021-04-16 09:12:00 172.7 cm WEIGHT 2021-04-16 [...] 174 cm WEIGHT 2020-09-04 10:00:00 73.619 kg HEIGHT 2020-09-04 10:00:00 174 cm WEIGHT 2020-09-04 10:00:00 73.619 kg Systolic blood 2021-04-16 14:00:00 149 mm[Hg] [facility] Diastolic blood 2021-04-16 14:00:00 76 mm[Hg] [facility] S [facility] Heart rate 2021-04-16 14:00:00 65 /min [facility] Respiratory rate 2021-04-16 14:00:00 14 /min [facility] Oxygen saturation in 2021-04-16 14:00:00 96 /min [facility] Arterial blood by Medical Ce nter Pulse oximetry Body temperature 2021-04-16 12:07:00 36.28 Amanda [facility] Body height 2021-04-16 09:12:00 172.7 cm [facility] Body weight 2021-04-16 09:12:00 72.712 kg [facility] BMI 2021-04-16 09:12:00 24.38 kg/m2 [facility] BMI Calculated 2020-11-19 13:29:00 Piloluna Astudillo Height 2020-11-19 13:29:00 172.72 cm [facility] Weight 2020-11-19 13:29:00 [facility] Procedures Procedure Date / Time Performing Source Performed Clinician VACCINATIONS - CONSENTS, 2021-12-11 Doctor Unassigned, [facility] ELIGIBILITY, HISTORY 05:01:00 [facility] PHACOEMULSIFICATION OF 2021-11-20 Martin Sharma [facility] CATARACT WITH INTRAOCULAR 17:54:00 [facility] [place] LENS IMPLANT DAY SURGERY - ADC 2021-11-20 Doctor Unassigned, [facility] 05:01:00 [facility] ASSIGNMENT OF BENEFITS 2021-11-01 Doctor Unassigned, [facility] 18:20:19 [facility] SARS-COV-2 COVID-19 VACCINE 2021-04-29 Doctor Unassigned, [facility] BOOSTER,0.25ML,IM (MODERNA) 17:45:38 [facility] zuleima Branch SODIUM NA-STAT LAB 2021-04-[address] [facility] 13:40:00 [facility] Center POTASSIUM-STAT LAB 2021-04-16 Ber, Jihad [facility] 13:40:00 [facility] Center CALCIUM, IONIZED 2021-04-16 Beram, Jihad [facility] 13:40:00 [facility] Center GLUCOSE-STAT LAB 2021-04-16 Beram, Jihad [facility] 13:40:00 [facility] Center HGB/HCT (H&H) - STAT LAB 2021-04-16 Ber, Jirosie [facility] 13:40:00 [facility] HERNIORRHAPHY,VENTRAL 2021-04-[address] [facility] 10:34:00 [facility] CBC W/PLT COUNT & AUTO 2021-04-[address] [facility] DIFFERENTIAL 10:42:00 [facility] COMPREHENSIVE METABOLIC PANEL 2021-04-[address] [facility] 10:42:00 [facility] PROTHROMBIN TIME/INR 2021-04-[address] 10:42:00 [facility] TYPE AND SCREEN, AUTOMATED 2021-04-[address] [facility] 10:42:00 [facility] CBC W/PLT COUNT & AUTO 2021-04-[address] [facility] [facility] DIFFERENTIAL 10:42:00 [facility] ECG 12-LEAD 2021-04-[address] [facility] 10:33:30 [facility] ECG 12-LEAD 2021-04-09 Unknown, [facility] 10:33:30 [facility] SARS-COV2/RT-PCR (HS & REF 2021-04-[address] [facility]) 10:26:00 [facility] BASIC METABOLIC PANEL (7) 2020-09-19 Celso, Vivekkumar [facility] 05:24:00 [facility] CBC (HEMOGRAM ONLY) 2020-09-19 Celso, Vivekkumar [facility] 05:24:00 [facility] MAGNESIUM 2020-09-19 [place], Vivekkumar [facility] 05:24:00 [facility] PHOSPHORUS 2020-09-19 [place], Vivekkumar [facility] 05:24:00 [facility] BASIC METABOLIC PANEL (7) 2020-09-18 Celso, Vivekkumar [facility] 06:03:00 [facility] CBC (HEMOGRAM ONLY) 2020-09-18 Celso, Vivekkumar [facility] 06:03:00 [facility] MAGNESIUM 2020-09-18 Celso, Vivekkumar [facility] 06:03:00 [facility] PHOSPHORUS 2020-09-18 Celso, Vivekkumar [facility] 06:03:00 [facility] BASIC METABOLIC PANEL (7) 2020-09-[address] [facility] 05:32:00 [facility] CBC (HEMOGRAM ONLY) 2020-09-[address] [facility] 05:32:00 [facility] MAGNESIUM 2020-09-[address] [facility] 05:32:00 [facility] PHOSPHORUS 2020-09-[address] [facility] 05:32:00 [facility] 2D ECHO W/ DOPPLER 2020-09-[address] [facility] (CW/PW/COLOR) 13:02:18 [facility] POCT-GLUCOSE METER 2020-09-[address] [facility] 08:03:00 [facility] BASIC METABOLIC PANEL (7) 2020-09-[address] [facility] 04:47:00 [facility] CBC (HEMOGRAM ONLY) 2020-09-[address] [facility] 04:47:00 [facility] MAGNESIUM 2020-09-[address] [facility] 04:47:00 [facility] PHOSPHORUS 2020-09-[address] [facility] 04:47:00 [facility] XR CHEST 1 VIEW PORTABLE / 2020-09-[address] [facility] BEDSIDE 04:00:00 [facility] POCT-GLUCOSE METER 2020-09-[address] [facility] 21:01:00 [facility] POCT-GLUCOSE METER 2020-09-[address] [facility] 17:51:00 [facility] POCT-GLUCOSE METER 2020-09-[address] [facility] 08:14:00 [facility] BASIC METABOLIC PANEL (7) 2020-09-[address] [facility] 05:57:00 [facility] CBC (HEMOGRAM ONLY) 2020-09-[address] [facility] 05:57:00 [facility] MAGNESIUM 2020-09-[address] [facility] 05:57:00 [facility] PHOSPHORUS 2020-09-[address] [facility] 05:57:00 [facility] XR CHEST 1 VIEW PORTABLE / 2020-09-[address] [facility] BED[facility] 02:43:00 [facility] PREPARE RBC 2020-09-[address] [facility] 23:54:00 [facility] PREPARE CRYOPRECIPITATE 2020-09-[address] [facility] 23:54:00 [facility] POCT-GLUCOSE METER 2020-09-[address] [facility] 22:11:00 [facility] POCT-GLUCOSE METER 2020-09-[address] [facility] 17:44:00 [facility] POCT-GLUCOSE METER 2020-09-[address] [facility] 12:56:00 [facility] POCT-GLUCOSE METER 2020-09-[address] [facility] 10:16:00 [facility] PLATELET AGGREGATION: 2020-09-[address] [facility] FUNCTION SCREEN 04:25:00 [facility] BASIC METABOLIC PANEL (7) 2020-09-[address] [facility] 04:25:00 [facility] CBC (HEMOGRAM ONLY) 2020-09-[address] [facility] 04:25:00 [facility] MAGNESIUM 2020-09-[address] [facility] 04:25:00 [facility] PHOSPHORUS 2020-09-[address] [facility] 04:25:00 [facility] POCT-GLUCOSE METER 2020-09-[address] [facility] 01:37:00 [facility] XR CHEST 1 VIEW PORTABLE / 2020-09-[address] [facility] BEDS[facility] 00:19:00 [facility] POCT-GLUCOSE METER 2020-09-[address] [facility] 22:44:00 [facility] POCT-GLUCOSE METER 2020-09-[address] [facility] 20:36:00 [facility] POCT-GLUCOSE METER 2020-09-[address] [facility] 18:33:00 [facility] BLOOD GAS, ARTERIAL 2020-09-[address] [facility] [facility] 18:30:00 [facility] BLOOD GAS, ARTERIAL 2020-09-[address] [facility] 17:46:00 [facility] GLUCOSE-STAT LAB 2020-09-13 I[address]elli Kay Wiley [facility] 17:46:00 [facility] POCT-GLUCOSE METER 2020-09-[address] [facility] 16:36:00 [facility] CBC (HEMOGRAM ONLY) 2020-09-13 [address] [facility] 16:32:00 [facility] PROTHROMBIN TIME/INR 2020-09-13 Jose Miguel Evaristo [facility] 16:32:00 [facility] APTT 2020-09-13 Jose Miguel Evaristo [facility] 16:32:00 [facility] FIBRINOGEN 2020-09-13 Jose Miguel Evaristo [facility] 16:32:00 [facility] POCT-GLUCOSE METER 2020-09-[address] [facility] 14:58:00 [facility] TRANSFUSE CRYOPRECIPITATE 2020-09-[address] [facility] 14:30:00 [facility] POCT-GLUCOSE METER 2020-09-[address] [facility] 14:17:00 [facility] TRANSFUSE LEUKO-REDUCED RED 2020-09-[address] [facility] BLOOD CELLS 14:02:00 [facility] TRANSFUSE LEUKO-REDUCED RED 2020-09-13 [address] [facility] BLOOD CELLS 12:05:00 [facility] PREPARE LEUKO-REDUCED RBC 2020-09-13 [facility]illespie [facility] 12:04:00 [facility] XR CHEST 1 VIEW PORTABLE / 2020-09-13 Devyn Chavez [facility] 11:53:00 [facility] BLOOD GAS, ARTERIAL 2020-09-[address] [facility] 11:37:00 [facility] CBC W/PLT COUNT & AUTO 2020-09-[address] DIFFERENTIAL 11:37:00 [facility] THROMBOELASTOGRAPH (TEG) 2020-09-[address] [facility] [facility] 11:37:00 [facility] CBC W/PLT COUNT & AUTO 2020-09-[address] [facility] DIFFERENTIAL 11:37:00 [facility] BASIC METABOLIC PANEL (7) 2020-09-[address] [facility] 11:33:00 [facility] MAGNESIUM 2020-09-[address] [facility] 11:33:00 [facility] PHOSPHORUS 2020-09-[address] [facility] 11:33:00 [facility] APTT 2020-09-[address] [facility] 11:33:00 [facility] PROTHROMBIN TIME/INR 2020-09-[address] [facility] 11:33:00 [facility] CALCIUM, IONIZED 2020-09-[address] [facility] 11:33:00 [facility] OXYGEN SATURATION, MEASURED 2020-09-[address] [facility] 11:33:00 [facility] LACTIC ACID, ARTERIAL 2020-09-[address] [facility] 11:33:00 [facility] FIBRINOGEN 2020-09-[address] [facility] 11:33:00 [facility] RRL CRITICAL LABS 2020-09-[address] [facility] (ABG,NA,K,H&H,GLUCOSE) 10:27:51 Medical enter CALCIUM, IONIZED 2020-09-[address] [facility] 10:27:51 [facility] BLOOD GAS, ARTERIAL 2020-09-[address] [facility] 10:27:51 [facility] Center SODIUM NA-STAT LAB 2020-09-[address] [facility] 10:27:51 [facility] Center POTASSIUM-STAT LAB 2020-09-[address] [facility] 10:27:51 Medical Center GLUCOSE-STAT LAB 2020-09-[address] [facility] 10:27:51 Medical Center HGB/HCT (H&H) - STAT LAB 2020-09-[address] [facility] 10:27:51 Medical Center PROTHROMBIN TIME/INR 2020-09-[address] [facility] 10:09:18 Medical Center APTT 2020-09-[address] [facility] 10:09:18 Medical Center FIBRINOGEN 2020-09-[address] [facility] 10:09:18 [facility] Center PLATELET COUNT 2020-09-[address] [facility] 10:09:18 [facility] Center POCT-ACT 2020-09-[address] [facility] 10:09:00 [facility] RRL CRITICAL LABS 2020-09-[address] [facility] (ABG,NA,K,H&H,GLUCOSE) 10:05:58 [facility] enter CALCIUM, IONIZED 2020-09-[address] [facility] 10:05:58 [facility] Center BLOOD GAS, ARTERIAL 2020-09-[address] [facility] 10:05:58 Medical Center SODIUM NA-STAT LAB 2020-09-[address] [facility] 10:05:58 Medical Center POTASSIUM-STAT LAB 2020-09-[address] [facility] 10:05:58 Medical Center GLUCOSE-STAT LAB 2020-09-[address] [facility] 10:05:58 Medical Center HGB/HCT (H&H) - STAT LAB 2020-09-[address] [facility] 10:05:58 [facility] Center POCT-ACT 2020-09-[address] [facility] 09:41:00 [facility] RRL CRITICAL LABS 2020-09-[address] [facility] (ABG,NA,K,H&H,GLUCOSE) 09:39:13 [facility] Center enter BLOOD GAS, ARTERIAL 2020-09-[address] [facility] 09:39:13 [facility] SODIUM NA-STAT LAB 2020-09-[address] [facility] 09:39:13 [facility] POTASSIUM-STAT LAB 2020-09-[address] [facility] 09:39:13 [facility] GLUCOSE-STAT LAB 2020-09-[address] [facility] 09:39:13 [facility] HGB/HCT (H&H) - STAT LAB 2020-09-[address] [facility] 09:39:13 [facility] POCT-ACT 2020-09-[address] [facility] 09:15:00 [facility] BLOOD GAS, VENOUS 2020-09-[address] [facility] 09:09:19 [facility] RRL CRITICAL LABS 2020-09-[address] [facility] (ABG,NA,K,H&H,GLUCOSE) 09:09:13 [facility] Center enter BLOOD GAS, ARTERIAL 2020-09-[address] [facility] 09:09:13 [facility] SODIUM NA-STAT LAB 2020-09-[address] [facility] 09:09:13 [facility] POTASSIUM-STAT LAB 2020-09-[address] [facility] 09:09:13 [facility] GLUCOSE-STAT LAB 2020-09-[address] [facility] 09:09:13 [facility] HGB/HCT (H&H) - STAT LAB 2020-09-[address] [facility] 09:09:13 [facility] POCT-ACT 2020-09-[address] [facility] 08:51:00 [facility] ANESTHESIA BRAVO 2020-09-[address] [facility] 08:12:58 [facility] RRL CRITICAL LABS 2020-09-[address] [facility] (ABG,NA,K,H&H,GLUCOSE) 08:01:36 Medical enter CALCIUM, IONIZED 2020-09-[address] [facility] 08:01:36 [facility] BLOOD GAS, ARTERIAL 2020-09-[address] [facility] 08:01:36 [facility] SODIUM NA-STAT LAB 2020-09-[address] [facility] 08:01:36 [facility] POTASSIUM-STAT LAB 2020-09-[address] [facility] 08:01:36 [facility] GLUCOSE-STAT LAB 2020-09-[address] [facility] 08:01:36 [facility] HGB/HCT (H&H) - STAT LAB 2020-09-[address] [facility] 08:01:36 [facility] BYPASS,AORTO CORONARY PENNY/SVG 2020-09-[address] [facility] 07:02:00 [facility] ENDOSCOPIC HARVEST,VEIN 2020-09-[address] [facility] 07:02:00 [facility] TYPE AND SCREEN, AUTOMATED 2020-09-[address] [facility] 06:18:00 [facility] POCT-GLUCOSE METER 2020-09-[address] [facility] 05:54:00 [facility] XR CHEST 2 VIEWS 2020-09-[address] [facility] 10:47:00 [facility] APTT 2020-09-[address] [facility] 10:31:00 [facility] CBC W/PLT COUNT & AUTO 2020-09-[address] [facility] [facility] DIFFERENTIAL 10:31:00 [facility] COMPREHENSIVE METABOLIC PANEL 2020-09-[address] [facility] 10:31:00 [facility] HEMOGLOBIN A1C 2020-09-10 Debonte, Nahomi Sams [facility] 10:31:00 [facility] LIPID PANEL 2020-09-10 Debonte, Nahomi Sams [facility] 10:31:00 [facility] MAGNESIUM 2020-09-10 Debonte, Nahomi Sams [facility] 10:31:00 [facility] PLATELET AGGREGATION: 2020-09-[address] [facility] FUNCTION SCREEN 10:31:00 [facility] Center PROTHROMBIN TIME/INR 2020-09-[address] [facility] 10:31:00 [facility] Center TYPE AND SCREEN, AUTOMATED 2020-09-[address] [facility] 10:31:00 [facility] CBC W/PLT COUNT & AUTO 2020-09-[address] [facility] DIFFERENTIAL 10:31:00 [facility] SARS-COV2/RT-PCR (HS & REF 2020-09-10 Ammon, N[facility]omi Sams [facility] 10:01:00 [facility] ECG 12-LEAD 2020-09-[address] [facility] 09:43:46 [facility] ECG 12-LEAD 2020-09-10 Unknown, Hl7 Doctor [facility] 09:43:46 [facility] Hernia repair [facility] TURP - Transurethral 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 Plan of Care Planned Activity Planned Date Details Comments Source Future Scheduled 2022-06-[address] [facility] Test 00:00:00 (12+) [code = [facility] Center DEPRESSION SCREENING (12+)] Future Scheduled 2022-06-01 FALLS RISK SCREENING [facility] Test 00:00:00 [code = FALLS RISK Medical C enter SCREENING] Future Scheduled 2022-04-[address] [facility] Test 00:00:00 Counseling and Medical Cente r Screening (12+) [code = Tobacco Cessation Counseling and Screening (12+)] Future Scheduled 2022-01-30 INFLUENZA VACCINE (#1) [facility] 00:00:00 [code = INFLUENZA Medical Ce nter VACCINE (#1)] Future Scheduled 2021-01-30 INFLUENZA VACCINE (#1) [facility] 00:00:00 [code = INFLUENZA Medical Ce nter VACCINE (#1)] Future Scheduled 2021-01-30 INFLUENZA VACCINE (#1) [facility] 00:00:00 [code = INFLUENZA Medical Ce nter VACCINE (#1)] Future Scheduled 1999-12-[address] [facility] 00:00:00 WELLNESS (YEAR 2 or Medical Center FIRST YEAR if no IPPE) [code = MEDICARE ANNUAL WELLNESS (YEAR 2 or FIRST YEAR if no IPPE)] Future Scheduled 1999-12-[address] [facility] 00:00:00 WELLNESS (YEAR 2 or Medical Center FIRST YEAR if no IPPE) [code = MEDICARE ANNUAL WELLNESS (YEAR 2 or FIRST YEAR if no IPPE)] Future Scheduled 1999-12-[address] [facility] 00:00:00 WELLNESS (YEAR 2 or Medical Center FIRST YEAR if no IPPE) [code = MEDICARE ANNUAL WELLNESS (YEAR 2 or FIRST YEAR if no IPPE)] Future Scheduled 1998 PNEUMOCOCCAL 65+ YRS [facility] Test 00:00:00 (1 of 1 - Medical Center [id number]) [code = PNEUMOCOCCAL 65+ YRS (1 of 1 - [id number])] Future Scheduled 1998 PNEUMOCOCCAL 63+ YRS [facility] Test 00:00:00 (1 of 1 - [facility] Center [id number] PCV13) [code = PNEUMOCOCCAL 65+ YRS (1 of 1 - [id number] PCV13)] Future Scheduled 1983-12-14 SHINGLES VACCINES ([address] [facility] 00:00:00 of 2) [code = SHINGLES Medic al Center VACCINES (1 of 2)] Future Scheduled 1983-12-14 SHINGLES VACCINES ([address] [facility] Test 00:00:00 of 2) [code = SHINGLES Medic al Center VACCINES (1 of 2)] Future Scheduled 1983-12-14 SHINGLES VACCINES ([address] [facility] Test 00:00:00 of 2) [code = SHINGLES Medic al Center VACCINES (1 of 2)] Future Scheduled 1952 DTAP/TDAP/TD VACCINES [facility] 00:00:00 (1 - Tdap) [code = Medical C enter DTAP/TDAP/TD VACCINES (1 - Tdap)] Future Scheduled 1952 DTAP/TDAP/TD VACCINES [facility] 00:00:00 (1 - Tdap) [code = Medical C enter DTAP/TDAP/TD VACCINES (1 - Tdap)] Future Scheduled 1952 DTAP/TDAP/TD VACCINES [facility] 00:00:00 (1 - Tdap) [code = Medical C enter DTAP/TDAP/TD VACCINES (1 - Tdap)] Future Scheduled 1945 COVID-19 VACCINE (1) [facility] 00:00:00 [code = COVID-[address] VACCINE (1)] Future Scheduled 1945 COVID-19 VACCINE (1) [facility] Test 00:00:00 [code = COVID-[address] VACCINE (1)] Future Scheduled 1939-12-14 PNEUMOCOCCAL 65+ YRS [facility] Test 00:00:00 (1 - PCV) [code = Medical Ce nter PNEUMOCOCCAL 65+ YRS (1 - PCV)] Future Scheduled 1934-06-15 COVID-19 VACCINE (#1) [facility] 00:00:00 [code = COVID-[address] VACCINE (#1)] Encounters Start End Encounter Admission Attending Care Care Encounter Source Date/Time Date/Time Type Type Clinicians Facility Department ID 2021-04-01 Emergency [facility] [id number] Univers 12:11:21 ity [facility] 2021-03-09 Inpatient [facility] Surgery [id number] [facility] 12:22:56 MARTIN 2021-12-11 2021-12-11 Orders Doctor SCOTT 1.2.840.114 [id number] Univers 00:00:00 00:00:00 Only Unassigned, AMIE 350.1.13.10 ity of [place] [facility] 4.2.7.2.686 Jack as [phone] [place] [address] [place] 2021-11-20 2021-11-20 Hospital [facility] [id number] Univers 11:12:00 14:33:00 Encounter Martin GARNER [id number] it[place] [phone] [facility] 071 Branch 2021-11-20 2021-11-20 Outpatient R [facility] OPH [id number] Univers 11:12:00 14:33:00 MARTIN itharjit [facility] 2021-11-20 2021-11-20 Surgery [facility] 1.2.840.114 [id number] Univers 11:46:00 12:21:00 Martin GARNER 350.1.13.10 [facility] [place] [id number] [facility] 020 Branch 2021-11-20 2021-11-20 Orders Doctor SCOTT 1.2.840.114 [id number] Univers 00:00:00 00:00:00 Only Unassigned, AMIE 350.1.13.10 ity [place] [facility] 4.2.7.2.686 Jack as [phone] [facility] 009 [place] 2021-11-01 2021-11-01 Assistant Bookkeeper Poalexa, Adc Lab Main [facility] 1.2.8 40.114 [id number] Univers 14:15:00 14:30:00 Visit Martin Sharma 350.1.13.1 0 [place] [id number] Mo dical NAL 353 [facility] 2021-11-01 2021-11-01 Outpatient Gene SHARMA [facility] [id number] Univers 14:15:00 14:15:00 MARTIN bedolla [facility] 2021-11-01 2021-11-01 Orders Doctor SCOTT 1.2.840.114 [id number] Univers 00:00:00 00:00:00 Only Unassigned, AMIE 350.1.13.10 it[place] [facility] 4.2.7.2.686 Jack as [phone] [address] 2021-10-14 2021-10-14 Outpatient Gene SHARMA [facility] [id number] Univers 15:30:00 15:30:00 MARTIN bedolla [facility] 2021-04-29 2021-04-29 Imm/Inj Nurse, Adc Pob Immunization [facility] 1.2.840.114 [id number] Univers 10:29:54 10:30:03 Visit Marquis Hernandez 350.1.13 .10 ity of [facility] [place] [id number] Mo dical NAL 421 [facility] 2021-04-29 2021-04-29 Outpatient R DAVID [facility] [id number] Univers 10:30:00 10:30:00 MARQUIS bedolla [facility] 2021-04-16 2021-04-16 Outpatient [facility] [id number] [facility] 08:49:00 23:59:00 [place] 2021-04-16 2021-04-16 Inpatient KEVIN HURT Surgery [id number] [facility] 08:49:00 15:08:00 MARTIN 2021-04-16 2021-04-16 Hospital MARCO ANTONIO Charles [facility] [id number] 08:49:00 15:08:00 Encounter [facility] 2021-04-16 2021-04-16 Surgery Araceli [facility] [id number] 10:45:00 13:00:00 [facility] 2021-04-16 2021-04-16 Anesthesia Martin Crespo [facility] [id number] 10:45:00 12:08:00 Event Feliciano [facility] 2021-04-16 2021-04-16 [facility] [id number] 00:00:00 00:00:00 Only Nahomi Sams [facility] 2021-04-09 2021-04-09 Outpatient MARCO ANTONIO [facility] [id number] SLE 13:30:10 23:59:00 2021-04-09 2021-04-09 [facility] [id number] 12:35:00 23:59:00 Encounter [facility] 2021-04-09 2021-04-09 Office MARCO ANTONIO Charles [facility] [id number] 10:23:03 10:53:03 Visit [facility] 2021-04-09 2021-04-09 Outpatient KEVIN HURT SLE [id number] SLE 10:23:03 10:23:03 MARTIN 2021-04-09 2021-04-09 Orders [facility] [id number] 00:00:00 00:00:00 Only [facility] 2021-04-09 2021-04-[address] [facility] [id number] [facility] 00:00:00 00:00:00 [facility] 2021-02-25 2021-02-25 Ambulatory nullFlavo [facility] 55 [id number] Memoria 14:40:00 14:40:00 Pre-Reg r Specialty 03 l [facility] 2021-02-25 2021-02-25 Ambulatory nullFlavo [facility] 55 [id number] Memoria 14:40:00 14:40:00 Pre-Reg r Specialty 03 l [facility] 2021-02-25 2021-02-25 Outpatient MHIE MHIE [id number] Memoria 09:40:00 09:40:00 03 albaro [place] 2021-02-25 2021-02-25 Outpatient Audra MG [id number] 09:40:00 09:40:00 Aura L 2021-02-18 2021-02-18 Ambulatory nullFlavo [facility] 55 [id number] Memoria 13:30:00 13:30:00 Pre-Reg r Specialty 02 l [facility] 2021-02-18 2021-02-18 Ambulatory nullFlavo [facility] 55 [id number] Memoria 13:30:00 13:30:00 Pre-Reg r Specialty 02 l [facility] 2021-02-18 2021-02-18 Outpatient MHIE MHIE [id number] Memoria 08:30:00 08:30:00 02 albaro [place] 2021-02-18 2021-02-18 Outpatient Audra MG [id number] 08:30:00 08:30:00 Aura L 02 2020-11-19 2020-11-20 Outpatient nullFlavo [facility] 55 [id number] Memoria 13:30:00 04:59:59 r Specialty 01 [facility] 2020-11-19 2020-11-20 Outpatient nullFlavo [facility] 55 [id number] Memoria 13:30:00 04:59:59 r Specialty 01 [facility] 2020-11-19 2020-11-19 [facility] [id number] 08:30:00 23:59:59 Aura Mendez 01 2020-11-19 2020-11-19 Outpatient MHIE REYNALDOIE [id number] Memoria 08:30:00 08:30:00 01 albaro Birch 2020-11-14 2020-11-14 [facility] [id number] 00:00:00 00:00:00 Lily [facility] 2020-10-03 2020-10-03 Outpatient MARCO ANTONIO [facility] [id number] SLE 00:00:00 00:00:00 [facility] 2020-09-13 2020-09-19 [facility] [id number] 05:29:00 11:20:00 Encounter [facility] 2020-09-13 2020-09-13 [facility] [id number] 07:30:00 12:27:00 [facility] 2020-09-13 2020-09-13 Anesthesia Carl Carroll [facility] [id number] 07:22:00 11:39:00 Event Per Aparicio [facility] 2020-09-12 2020-09-12 [facility] [id number] 08:40:00 23:59:00 Encounter [facility] 2020-09-12 2020-09-12 Outpatient MARCO ANTONIO [facility] [id number] SLE 00:00:00 00:00:00 2020-09-12 2020-09-[address] [facility] [id number] [facility] 00:[facility]00 00:00:00 [facility] 2020-09-10 2020-09-10 Office Martin Hurt [facility] [id number] 09:35:35 10:35:35 Visit Shaquille Paulino [facility] 2020-09-10 2020-09-10 [facility] [id number] SLE 00:00:00 00:00:00 MARTIN 2020-09-102020-09-10 Outpatient MARCO ANTONIO [facility] [id number] SLE 00:00:00 00:00:00 2020-09-10 2020-09-10 Orders [facility] [id number] 00:00:00 00:00:00 Only [facility] 2020-09-10 2020-09-[address] [facility] [id number] [facility] 00:00:00 00:00:00 [facility] 2020-09-04 2020-09-04 Office Araceli [facility] [id number] 10:00:45 10:30:45 Visit Martin [facility] 2020-09-04 2020-09-04 Outpatient KEVIN HURT [facility] [id number] SLE 00:00:00 00:00:00 MARTIN 2020-09-04 2020-09-[address] [facility] [id number] [facility] 00:00:00 00:00:00 [facility] 2019-01-11 2019-01-11 Office [facility] [address] 1.2.840.114 [id number] 08:26:40 08:50:41 Visit Kaylene Garner 350.1.13.10 [place] 4.2.7.2.686 Jane [id number] [address] 2019-01-10 2019-01-10 Orders Doctor CHAVEZ 1.2.840.114 [id number] 00:00:00 00:00:00 Only UnassignedAMIE 350.1.13.10 [place] [facility] 4.2.7.2.686 [id number] Results Test Description Test Time Test Comments Results Result Comments Source Calcium, Ionized 2021-04-16 13:46:30 Test Item Value Reference Range Interpretation Comme nts Calcium, Ion (test code = 1993-07) 1.07 mmol/L 1.12-1.27 L pH, Blood (test code = 43527-1) 7.40 Lab Interpretation (test code = 59147-0) [facility]normal [facility] [id number] 13:46:30 Test Item Value Reference Range Interpretation Comments Calcium, Ion (test code = 1993-07) 1.07 mmol/L 1.12-1.27 L pH, Blood (test code = 51596-3) 7.40 Lab Interpretation (test code = Abnormal 39037-1) [facility] [id number] 13:46:30 Test Item Value Reference Range Interpretation Comments CALCIUM IONIZED (BEAKER) (test 1.07 mmol/L 1.12-1.27 L code = 698) PH, BLOOD (BEAKER) (test code = 7.40 1810) HGB/HCT (H&H)-Stat [id number] 13:46:29 Test Item Value Reference Range Interpretation Comments Hemoglobin (test code = 12.1 See_Comment L [Au tomated message] 786-4) The system Hubbub generated this result transmitted ref erence range: 13.0 - 1 6.8 GM/DL. The refe rence range was not u sed to interpret this result as normal/abnor mal. Hematocrit (test code = 36.0 % 40.0-50.0 L 4544-3) Lab Interpretation (test Abnormal code = 44227-6) [facility]Stat [id number] 13:46:29 Test Item Value Reference Range Interpretation Comments Hemoglobin (test code = 12.1 See_Comment L [Au tomated message] 786-4) The system Hubbub generated this result transmitted ref erence range: 13.0 - 1 6.8 GM/DL. The refe rence range was not u sed to interpret this result as normal/abnor mal. Hematocrit (test code = 36.0 % 40.0-50.0 L 4544-3) Lab Interpretation (test Abnormal code = 11288-8) [facility] - STAT [id number] 13:46:29 Test Item Value Reference Range Interpretation Comments HEMOGLOBIN (BEAKER) (test code = 12.1 GM/DL 13.0-16.8 L 410) HEMATOCRIT (BEAKER) (test code = 36.0 % 40.0-50.0 L 411) Potassium-Stat [id number] 13:46:06 Test Item Value Reference Range Interpretation Comments Potassium (test code = 2823-3) 4.4 meq/L 3.6-5.5 Lab Interpretation (test code = Normal 97886-5) [facility] [id number] 13:46:06 Test Item Value Reference Range Interpretation Comments Potassium (test code = 2823-3) 4.4 meq/L 3.6-5.5 Lab Interpretation (test code = Normal 45129-8) [facility]OT[facility]SIUM-STAT [id number] 13:46:06 Test Item Value Reference Range Interpretation Comments POTASSIUM (BEAKER) (test code = 4.4 meq/L 3.6-5.5 379) Glucose-Stat [id number] 13:46:04 Test Item Value Reference Range Interpretation Comments Glucose (test code = 2345-7) 110 mg/dL 70-110 Lab Interpretation (test code = Normal 25767-2) [facility] [id number] 13:46:04 Test Item Value Reference Range Interpretation Comments Sodium (test code = 2951-2) 137 meq/L 136-145 Lab Interpretation (test code = Normal 23269-9) [facility] [id number] 13:46:04 Test Item Value Reference Range Interpretation Comments Glucose (test code = 2345-7) 110 mg/dL 70-110 Lab Interpretation (test code = Normal 04079-3) [facility]Stat [id number] 13:46:04 Test Item Value Reference Range Interpretation Comments Sodium (test code = 2951-2) 137 meq/L 136-145 Lab Interpretation (test code = Normal 86249-7) [facility] [id number] 13:46:04 Test Item Value Reference Range Interpretation Comments GLUCOSE RANDOM (BEAKER) (test code 110 mg/dL 70-110 = 652) SODIUM NA-STAT [id number] 13:46:04 Test Item Value Reference Range Interpretation Comments SODIUM (BEAKER) (test code = 381) 137 meq/L 136-145 SARS-COV2/RT-PCR ([facility])2021-04-09 20:35:48 Test Item Value Reference Range Interpretation Comments SARS-COV2/RT-PCR (test code = Negative Negative 3585081) Negative result for this test determines that [...] false negatives.The limit of detection for this assayis 100 copies/mL.This SARS-CoV-2 test is a real-time [...] the FDA, the issued EUA will be effecti ve until the declaration that circumstances exist justifying the authorization of the emergency use of in vitro diagnostic tests for detection and/or diagnosis of COVID-19 is terminated under Section 564(b)(2) of the Act or the EUA is revoked under Section 564(g) of the Act.Testing was performed usingthe Parekh SARS-CoV-2 assay.Fact Sheet for Healthcare Providers:https://www.molecular.parekh/karla/RT SARS-CoV-2 HCP Fact Sheet 51- 397613.pdfFact Sheet for Healthcare Patients:https://www.molecular.parekh/karla/RT SARS-CoV-2 Patient Fact Sheet EN 51-472400K3.pdfType and screen, automated 2021-04-09 11:49:00 Test Item Value Reference Range Interpretation Comments ABO/RH AUTOMATED (BEAKER) (test O POSITIVE code = 2260) Ab Scrn (test code = 890-4) NEGATIVE [facility] HospitalType and screen, [id number] 11:49:00 Test Item Value Reference Range Interpretation Comments ABO/RH AUTOMATED (BEAKER) (test O POSITIVE code = 2260) Ab Scrn (test code = 890-4) NEGATIVE [facility] HospitalComprehensive metabolic [id number] 11:26:31 Test Item Value Reference Range Interpretation Comments Protein, Total 7.5 See_Comment [Automated (test code = message] The 2885-2) system which generated this result transmit tricia reference range : 6.0 - 8.3 gm/dL . The reference range was not u sed to interpret th is result as normal/abnormal . Albumin (test code 3.6 g/dL 3.5-5.0 = 25208-1) Alkaline 91 U/L 40-150 Phosphatase (test code = 6768-6) Total Bilirubin 0.5 mg/dL 0.2-1.2 (test code = 1975-2) Sodium (test code = 140 meq/L 590-844 0809-2) Potassium (test 4.3 meq/L 3.5-5.1 code = 2823-3) Chloride (test code 105 meq/L 98-107 = 2075-0) CO2 (test code = 26 meq/L 22-29 8-9) BUN (test code = 18 mg/dL 7-21 3094-0) Creatinine (test 0.88 mg/dL 0.57-1.25 code = 2160-0) Glucose (test code 91 mg/dL 70-105 = 2345-7) Calcium (test code 9.3 mg/dL 8.4-10.2 = 36390-8) AST (test code = 17 U/L 5-34 1920-8) ALT (test code = 21 U/L 6-55 1742-6) EGFR (test code = 82 mL/min/1.73 [place] [address]-8) NOT ACCURATE CREATININE CLEARANCE IN PREDICTING GLOMERULAR FILTRATION RATE . ESTIMATED GFR I S NOT APPLICABLE FOR DIALYSIS PATIEN MALIHA (test code = [employer] Engraver Hand ID - MALIHA) DAVID Ambriz [facility]Com[facility] metabolic [id number] 11:26:31 Test Item Value Reference Range Interpretation Comments Protein, Total 7.5 See_Comment [Automated (test code = message] The 2885-2) system which generated this result transmit tricia reference range : 6.0 - 8.3 gm/dL . The reference range was not u sed to interpret th is result as normal/abnormal . Albumin (test code 3.6 g/dL 3.5-5.0 = 32345-1) Alkaline 91 U/L 40-150 Phosphatase (test code = 6768-6) Total Bilirubin 0.5 mg/dL 0.2-1.2 (test code = 1974-2) Sodium (test code = 140 meq/L 126-332 0377-2) Potassium (test 4.3 meq/L 3.5-5.1 code = 2823-3) Chloride (test code 105 meq/L 98-107 = 2075-0) CO2 (test code = 26 meq/L 22-29 2027-9) BUN (test code = 18 mg/dL 7-21 3094-0) Creatinine (test 0.88 mg/dL 0.57-1.25 code = 2160-0) Glucose (test code 91 mg/dL 70-105 = 2345-7) Calcium (test code 9.3 mg/dL 8.4-10.2 = 29243-8) AST (test code = 17 U/L 5-34 1920-8) ALT (test code = 21 U/L 6-55 1742-6) EGFR (test code = 82 mL/min/1.[place] [address]-4) NOT ACCURATE CREATININE CLEARANCE IN PREDICTING GLOMERULAR FILTRATION RATE . ESTIMATED GFR I S NOT APPLICABLE FOR DIALYSIS PATIEN TSJolly JETT (test code = [employer] Hand ID - MALIHA) DAVID Ambriz [facility] METABOLIC [id number] 11:26:31 Test Item Value Reference Range Interpretation [...] 347) EGFR (BEAKER) (test 82 mL/min/1.73 ESTIMA [place] GFR IS code = 1092) sq m NOT ACCURATE CREATININE CLEARANCE IN PREDICTING GLOMERULAR FILTRATION RATE . ESTIMATED GFR I S NOT APPLICABLE FOR DIALYSIS PATIEN TS. [employer] Eng[employer]ver Hand ID - DAVID MProthrombin time/[id number] 11:13:50 Test Item Value Reference Interpretation Comments Range Protime (test code = 13.7 See_Comment [Autom ated 0282-2) message] The system which generated this result transmitted reference range : 11.9 - 14.2 seconds. The reference range was not used to interpret this result as normal/abnormal . INR (test code = 1.07 See_Comment [Automated 0291-6) message] The system which generated this result transmitted reference range : <=5.90. The reference range was not used to interpret this result as normal/abnormal . MALIHA (test code = RECOMMENDED MALIHA) COUMADIN/WARFARIN INR THERAPY RANGESSTANDARD DOSE: 2.0 - 3.0 Includes: PROPHYLAXIS for venous thrombosis, systemic embolization; TREATMENT for venous thrombosis and/or pulmonary embolus.HIGH RISK: Target INR is 2.5-3.5 for patients with mechanical heart valves. Lab Interpretation Normal (test code = 94848-8) [facility] HospitalProthrombin time/[id number] 11:13:50 Test Item Value Reference Interpretation Comments Range Protime (test code = 13.7 See_Comment [Autom ated 5902-2) message] The system which generated this result transmitted reference range : 11.9 - 14.2 seconds. The reference range was not used to interpret this result as normal/abnormal . INR (test code = 1.07 See_Comment [Automated 6301-6) message] The system which generated this result transmitted reference range : <=5.90. The reference range was not used to interpret this result as normal/abnormal . MALIHA (test code = RECOMMENDED MALIHA) COUMADIN/WARFARIN INR THERAPY RANGESSTANDARD DOSE: 2.0 - 3.0 Includes: PROPHYLAXIS for venous thrombosis, systemic embolization; TREATMENT for venous thrombosis and/or pulmonary embolus.HIGH RISK: Target INR is 2.5-3.5 for patients with mechanical heart valves. Lab Interpretation Normal (test code = 43014-6) [facility] HospitalPROTHROMBIN TIME/[id number] 11:13:50 Test Item Value Reference Range Interpretation Comments PROTIME (BEAKER) 13.7 seconds 11.9-14.2 (test code = 759) INR (BEAKER) (test 1.07 See_Comment [Automat ed message] code = 370) The system Hubbub generated this result transmitted ref erence range: <=5.90. The reference range was not used to int erpret this result as normal/abnormal . RECOMMENDED COUMADIN/WARFARIN INR THERAPY RANGESSTANDARD DOSE: 2.0 - 3.0 Includes: PROPHYLAXIS for venous thrombosis, systemic embolization; TREATMENT for venous thrombosis and/or pulmonary embolus.HIGH RISK: Target INR is 2.5-3.5 for patients with mechanical heart valves.CBC with platelet count + automated [id number] 11:09:41 Test Item Value Reference Range Interpretation Comments WBC (test code = 6690-2) 5.0 See_Comment [A utomated message] The system Hubbub generated this result transmitted ref erence range: 3.5 - 10 .5 K/L. The refe rence range was not u sed to interpret this result as normal/abnor mal. RBC (test code = 789-8) 3.94 See_Comment L [Au tomated message] The system Hubbub generated this result transmitted ref erence range: 4.63 - 6 .08 M/L. The refe rence range was not u sed to interpret this result as normal/abnor mal. MCHC (test code = 786-4) 32.0 See_Comment L [A utomated message] The system Hubbub generated this result transmitted ref erence range: 32.3 - 3 6.5 GM/DL. The refe rence range was not u sed to interpret this result as normal/abnor mal. Hematocrit (test code = 38.1 % 40.1-51.0 L 4544-3) MCV (test code = 787-2) 96.7 fL 79.0-92.2 H MCH (test code = 785-6) 31.0 pg 25.7-32.2 RDW (test code = 788-0) 14.6 % 11.6-14.4 H Platelets (test code = 179 See_Comment [Aut omated message] 777-3) The system Hubbub generated this result transmitted ref erence range: 150 - 45 0 K/CU MM. The referen ce range was not u sed to interpret this result as normal/abnor mal. MPV (test code = 10.2 fL 9.4-12.4 19819-1) nRBC (test code = 413) 0 See_Comment [Aut omated message] The system Hubbub generated this result transmitted ref erence range: 0 - 0 /1 00 WBC. The refere nce range was not u sed to interpret this result as normal/abnor mal. % Neutros (test code = 60 % 429) % Lymphs (test code = 22 % 430) % Monos (test code = 12 % 431) % Eos (test code = 432) 5 % % Baso (test code = 437) 0 % # Neutros (test code = 2.96 See_Comment [Aut omated message] 670) The system Hubbub generated this result transmitted ref erence range: 1.78 - 5 .38 K/L. The refe rence range was not u sed to interpret this result as normal/abnor mal. # Lymphs (test code = 1.11 See_Comment L [Auto mated message] 414) The system Hubbub generated this result transmitted ref erence range: 1.32 - 3 .57 K/L. The refe rence range was not u sed to interpret this result as normal/abnor mal. # Monos (test code = 0.59 See_Comment [Autom ated message] 415) The system Hubbub generated this result transmitted ref erence range: 0.30 - 0 .82 K/L. The refe rence range was not u sed to interpret this result as normal/abnor mal. # Eos (test code = 416) 0.27 See_Comment [Au tomated message] The system Hubbub generated this result transmitted ref erence range: 0.04 - 0 .54 K/L. The refe rence range was not u sed to interpret this result as normal/abnor mal. # Baso (test code = 417) 0.02 See_Comment [A utomated message] The system Hubbub generated this result transmitted ref erence range: 0.01 - 0 .08 K/L. The refe rence range was not u sed to interpret this result as normal/abnor mal. Immature 0 % 0-1 Granulocytes-Relative (test code = 2801) Lab Interpretation (test Abnormal code = 59394-2) [facility] with platelet count + automated [id number] 11:09:41 Test Item Value Reference Range Interpretation Comments WBC (test code = 6690-2) 5.0 See_Comment [A utomated message] The system Hubbub generated this result transmitted ref erence range: 3.5 - 10 .5 K/L. The refe rence range was not u sed to interpret this result as normal/abnor mal. RBC (test code = 789-8) 3.94 See_Comment L [Au tomated message] The system Hubbub generated this result transmitted ref erence range: 4.63 - 6 .08 M/L. The refe rence range was not u sed to interpret this result as normal/abnor mal. MCHC (test code = 786-4) 32.0 See_Comment L [A utomated message] The system Hubbub generated this result transmitted ref erence range: 32.3 - 3 6.5 GM/DL. The refe rence range was not u sed to interpret this result as normal/abnor mal. Hematocrit (test code = 38.1 % 40.1-51.0 L 4544-3) MCV (test code = 787-2) 96.7 fL 79.0-92.2 H MCH (test code = 785-6) 31.0 pg 25.7-32.2 RDW (test code = 788-0) 14.6 % 11.6-14.4 H Platelets (test code = 179 See_Comment [Aut omated message] 777-3) The system Hubbub generated this result transmitted ref erence range: 150 - 45 0 K/CU MM. The referen ce range was not u sed to interpret this result as normal/abnor mal. MPV (test code = 10.2 fL 9.4-12.4 81713-3) nRBC (test code = 413) 0 See_Comment [Aut omated message] The system Hubbub generated this result transmitted ref erence range: 0 - 0 /1 00 WBC. The refere nce range was not u sed to interpret this result as normal/abnor mal. % Neutros (test code = 60 % 429) % Lymphs (test code = 22 % 430) % Monos (test code = 12 % 431) % Eos (test code = 432) 5 % % Baso (test code = 437) 0 % # Neutros (test code = 2.96 See_Comment [Aut omated message] 670) The system Hubbub generated this result transmitted ref erence range: 1.78 - 5 .38 K/L. The refe rence range was not u sed to interpret this result as normal/abnor mal. # Lymphs (test code = 1.11 See_Comment L [Auto mated message] 414) The system Hubbub generated this result transmitted ref erence range: 1.32 - 3 .57 K/L. The refe rence range was not u sed to interpret this result as normal/abnor mal. # Monos (test code = 0.59 See_Comment [Autom ated message] 415) The system Hubbub generated this result transmitted ref erence range: 0.30 - 0 .82 K/L. The refe rence range was not u sed to interpret this result as normal/abnor mal. # Eos (test code = 416) 0.27 See_Comment [Au tomated message] The system Hubbub generated this result transmitted ref erence range: 0.04 - 0 .54 K/L. The refe rence range was not u sed to interpret this result as normal/abnor mal. # Baso (test code = 417) 0.02 See_Comment [A utomated message] The system Hubbub generated this result transmitted ref erence range: 0.01 - 0 .08 K/L. The refe rence range was not u sed to interpret this result as normal/abnor mal. Immature 0 % 0-1 Granulocytes-Relative (test code = 2801) Lab Interpretation (test Abnormal code = 97316-6) [facility] W/PLT COUNT & AUTO [id number] 11:09:41 Test Item Value Reference Range Interpretation [...] 0-1 PERCENT (BEAKER) (test code = 2801) Basic Metabolic [id number] 06:49:00 Test Item Value Reference Range Interpretation Comments Sodium (test code = 139 meq/L 329-362 7947-2) Potassium (test code = 3.8 meq/L 3.5-5.1 2823-3) Chloride (test code = 101 meq/L 98-107 2075-0) CO2 (test code = 31 meq/L 22-29 H 2028-9) BUN (test code = 13 mg/dL 7-21 3094-0) Creatinine (test code 0.68 mg/dL 0.57-1.25 = 2160-0) Glucose (test code = 96 mg/dL 70-105 2345-7) Calcium (test code = 8.1 mg/dL 8.4-10.2 L 01965-3) EGFR (test code = 111 mL/min/1.73 [place] [address]-9) NOT ACCURATE CREATININE CLEARANCE IN PREDICTING GLOMERULAR FILTRATION RATE . ESTIMATED GFR I S NOT APPLICABLE FOR DIALYSIS PATIENTS. MALIHA (test code = MALIHA) [employer] ID - ARIADNA Sweet Lab Interpretation Abnormal (test code = 36030-0) [facility]00 Test Item Value Reference Range Interpretation Comments Magnesium (test code = 1.9 mg/dL 1.6-2.6 37657-7) MALIHA (test code = MALIHA) [employer] ID - ARIADNA W Lab Interpretation (test Normal code = 51816-4) [facility] 06:49:00 Test Item Value Reference Range Interpretation Comments Phosphorus (test code = 2.7 mg/dL 2.3-4.7 2777-1) MALIHA (test code = MALIHA) [employer] ID - ARIADNA W Lab Interpretation (test Normal code = 01498-3) [facility] [id number] 06:49:00 Test Item Value Reference Range Interpretation Comments Sodium (test code = 139 meq/L 058-783 9866-2) Potassium (test code = 3.8 meq/L 3.5-5.1 2823-3) Chloride (test code = 101 meq/L 98-107 2075-0) CO2 (test code = 31 meq/L 22-29 H 8-9) BUN (test code = 13 mg/dL 7-21 3094-0) Creatinine (test code 0.68 mg/dL 0.57-1.25 = 2160-0) Glucose (test code = 96 mg/dL 70-105 2345-7) Calcium (test code = 8.1 mg/dL 8.4-10.2 L 17623-7) EGFR (test code = 111 mL/min/1.73 [place] [address]-8) NOT ACCURATE CREATININE CLEARANCE IN PREDICTING GLOMERULAR FILTRATION RATE . ESTIMATED GFR I S NOT APPLICABLE FOR DIALYSIS PATIENTS. AMLIHA (test code = MALIHA) [employer] ID - ARIADNA W Lab Interpretation Abnormal (test code = 67189-4) [facility] 06:49:00 Test Item Value Reference Range Interpretation Comments Magnesium (test code = 1.9 mg/dL 1.6-2.6 21045-0) MALIHA (test code = MALIHA) [employer] ID - ARIADNA W Lab Interpretation (test Normal code = 22570-8) [facility] 06:49:00 Test Item Value Reference Range Interpretation Comments Phosphorus (test code = 2.7 mg/dL 2.3-4.7 2777-1) MALIHA (test code = MALIHA) [employer] ID - ARIADNA W Lab Interpretation (test Normal code = 73944-5) [facility] [id number] 06:49:00 Test Item Value Reference Range Interpretation [...] S NOT APPLICABLE FOR DIALYSIS PATIEN TS. [employer] ID - ARIADNA [id number] 06:49:00 Test Item Value Reference Range Interpretation Comments MAGNESIUM (BEAKER) (test code = 1.9 mg/dL 1.6-2.6 627) [employer] ID - ARIADNA [id number] 06:49:00 Test Item Value Reference Range Interpretation Comments PHOSPHORUS (BEAKER) (test code = 2.7 mg/dL 2.3-4.7 604) [employer] ID - ARIADNA WCBC (Hemogram only)2020-09-19 06:21:00 Test Item Value Reference Range Interpretation Comments WBC (test code = 6690-2) 6.3 See_Comment [A utomated message] The system Hubbub generated this result transmitted ref erence range: 3.5 - 10 .5 K/L. The refe rence range was not u sed to interpret this result as normal/abnor mal. RBC (test code = 789-8) 2.63 See_Comment L [Au tomated message] The system Hubbub generated this result transmitted ref erence range: 4.63 - 6 .08 M/L. The refe rence range was not u sed to interpret this result as normal/abnor mal. MCHC (test code = 786-4) 32.4 See_Comment L [A utomated message] The system Hubbub generated this result transmitted ref erence range: 32.3 - 3 6.5 GM/DL. The refe rence range was not u sed to interpret this result as normal/abnor mal. Hematocrit (test code = 25.3 % 40.1-51.0 L 4544-3) MCV (test code = 787-2) 96.2 fL 79.0-92.2 H MCH (test code = 785-6) 31.2 pg 25.7-32.2 RDW (test code = 788-0) 15.8 % 11.6-14.4 H Platelets (test code = 159 See_Comment [Aut omated message] 777-3) The system Hubbub generated this result transmitted ref erence range: 150 - 45 0 K/CU MM. The referen ce range was not u sed to interpret this result as normal/abnor mal. MPV (test code = 11.6 fL 9.4-12.4 85890-3) nRBC (test code = 413) 1 See_Comment H [Aut omated message] The system Hubbub generated this result transmitted ref erence range: 0 - 0 /1 00 WBC. The refere nce range was not u sed to interpret this result as normal/abnor mal. Lab Interpretation (test Abnormal code = 78759-0) [facility])2020-09-19 06:21:00 Test Item Value Reference Range Interpretation Comments WBC (test code = 6690-2) 6.3 See_Comment [A utomated message] The system Hubbub generated this result transmitted ref erence range: 3.5 - 10 .5 K/L. The refe rence range was not u sed to interpret this result as normal/abnor mal. RBC (test code = 789-8) 2.63 See_Comment L [Au tomated message] The system Hubbub generated this result transmitted ref erence range: 4.63 - 6 .08 M/L. The refe rence range was not u sed to interpret this result as normal/abnor mal. MCHC (test code = 786-4) 32.4 See_Comment L [A utomated message] The system Hubbub generated this result transmitted ref erence range: 32.3 - 3 6.5 GM/DL. The refe rence range was not u sed to interpret this result as normal/abnor mal. Hematocrit (test code = 25.3 % 40.1-51.0 L 4544-3) MCV (test code = 787-2) 96.2 fL 79.0-92.2 H MCH (test code = 785-6) 31.2 pg 25.7-32.2 RDW (test code = 788-0) 15.8 % 11.6-14.4 H Platelets (test code = 159 See_Comment [Aut omated message] 777-3) The system Hubbub generated this result transmitted ref erence range: 150 - 45 0 K/CU MM. The referen ce range was not u sed to interpret this result as normal/abnor mal. MPV (test code = 11.6 fL 9.4-12.4 44150-6) nRBC (test code = 413) 1 See_Comment H [Aut omated message] The system Hubbub generated this result transmitted ref erence range: 0 - 0 /1 00 WBC. The refere nce range was not u sed to interpret this result as normal/abnor mal. Lab Interpretation (test Abnormal code = 27787-9) [facility] (HEMOGRAM ONLY)2020-09-19 06:21:00 Test Item Value Reference [...] (BEAKER) (test code = 413) BASIC METABOLIC [id number] 07:08:00 Test Item Value Reference Range Interpretation [...] S NOT APPLICABLE FOR DIALYSIS PATIEN TS. [employer] ID - PIAYA [id number] 07:08:00 Test Item Value Reference Range Interpretation Comments MAGNESIUM (BEAKER) (test code = 2.1 mg/dL 1.6-2.6 627) [employer] ID - PIAYA [id number] 07:08:00 Test Item Value Reference Range Interpretation Comments PHOSPHORUS (BEAKER) (test code = 2.1 mg/dL 2.3-4.7 L 604) [employer] KRISTY FUNEZ LCBC (HEMOGRAM ONLY)2020-09-18 06:57:00 Test Item Value [...] 0-0 H (BEAKER) (test code = 413) 2D Echo W/Doppler(CW/PW/Color)2020-09-17 09:21:09Ejection FractionSLEH [facility]CHO [facility] W[facility]Doppler(CW/PW/Color)2020-09-17 09:21:09Ejection FractionSLEH ECHO HEARTLAB [facility] [id number] 06:26:00 Test Item Value Reference Range Interpretation [...] 697) EGFR (BEAKER) (test 97 mL/min/1.73 ESTIMA TRICIA GFR IS code = 1092) sq m NOT ACCURATE CREATININE CLEARANCE IN PREDICTING GLOMERULAR FILTRATION RATE . ESTIMATED GFR I S NOT APPLICABLE FOR DIALYSIS PATIEN TS. [employer] ID - [id number] 06:26:00 Test Item Value Reference Range Interpretation Comments MAGNESIUM (BEAKER) (test code = 1.9 mg/dL 1.6-2.6 627) [employer] ID - [id number] 06:26:00 Test Item Value Reference Range Interpretation Comments PHOSPHORUS (BEAKER) (test code = 2.7 mg/dL 2.3-4.7 604) [employer] ID - DBCBC (HEMOGRAM ONLY)2020-09-17 05:54:00 Test [...] WBC 0-0 (BEAKER) (test code = 413) POC-Glucose [id number] 08:39:00 Test Item Value Reference Range Interpretation Comments POC-Glucose Meter (test 106 mg/dL 70-110 : TE STED AT [facility] code = 1538) [address] [facility], [address]: [employer] Met[employer] Eng[employer] Hand/Techni ivone ID = [id number] for Reyes, Annalisa Lab Interpretation (test Normal code = 34710-6) [facility] [id number] 08:39:00 Test Item Value Reference Range Interpretation Comments POC-Glucose Meter (test 106 mg/dL 70-110 : TE STED AT [facility] code = 1538) [address] [place] [address], [address]: [employer] Hand/Techni ivone ID = [id number] for Reyes, Annalisa Lab Interpretation (test Normal code = 43429-0) [facility] HospitalPOTX[facility]GLUCOSE [id number] 08:39:00 Test Item Value Reference Range Interpretation Comments POC-GLUCOSE METER 106 mg/dL 70-110 : TESTED A T [facility] 67[address] (BEAKER) (test code = [place] [facility], 1538) [address]: [employer] Hand/Techni ivone ID = [id number] for [place], Annalisa [id number] 06:13:00 Test Item Value Reference Range Interpretation Comments MAGNESIUM (BEAKER) (test code = 2.0 mg/dL 1.6-2.6 627) [employer] ID - [id number] 06:13:00 Test Item Value Reference Range Interpretation Comments PHOSPHORUS (BEAKER) (test code = 2.2 mg/dL 2.3-4.7 L 604) [employer] ID - EDASIBASIC METABOLIC [id number] 06:13:00 Test Item Value Reference Range Interpretation [...] S NOT APPLICABLE FOR DIALYSIS PATIEN TS. [employer] ID - EDASIRAD, CHEST, 1 VIEW, NON [id number] 05:26:00while patient is intubated or has chest tubes.Reason for exam:->Status post CV SurgeryShould thisbe performed at the bedside?->Yes [facility] : 1935 Sex: MFINAL REPORT RAD, CHEST, 1 VIEW, NON DEPT INDICATION: Status post CV Surgery COMPARISON: Prior day's exam FINDINGS: Portable frontal view of the chest. IMPRESSION: Support Lines: None. Lungs and pleura: Unchanged airspace and pleural opacities. No pneumothorax.Heart and mediastinum: Stable contours. Stable surgical changes.Additional findings: None. Signed: Liat Ahmadi Verified Date/Time: 09/16/2020 05:26:35 Electronically signed by: LIAT AHMADI MD 09/16/2020 05:26 AMCBC (HEMOGRAM ONLY)2020-09-16 05:18:00 Test Item Value Reference [...] 0-0 (BEAKER) (test code = 413) POCT-GLUCOSE [id number] 21:14:00 Test Item Value Reference Range Interpretation Comments POC-GLUCOSE METER 125 mg/dL 70-110 H : Notified RN/MD: ([facility]) (test code = TESTED AT [place] [address] 1538) [place], [address]: [employer] Eng[employer] Hand/Techni ivone ID = [id number] for MARIN GANESH SORIN POCT-GLUCOSE [id number] 18:03:00 Test Item Value Reference Range Interpretation Comments POC-GLUCOSE METER 105 mg/dL 70-110 : TESTED A T [facility] [address] ([facility]) (test code = [place], 1538) [address]: [employer] Met[employer] Engraver Hand/Techni ivone ID = [id number] for Leslie Rodrigues POCT-GLUCOSE [id number] 08:26:00 Test Item Value Reference Range Interpretation Comments POC-GLUCOSE METER 114 mg/dL 70-110 H : TESTED A T [facility] 6720 (BEAKER) (test code = [place], 1538) [address]: [employer] Eng[employer] Hand/Techni ivone ID = [id number] for Jose Howell BASIC METABOLIC [id number] 06:57:00 Test Item Value Reference Range Interpretation [...] 697) EGFR (BEAKER) (test 89 mL/min/1.73 ESTIMA TRICIA GFR IS code = 1092) sq m NOT ACCURATE CREATININE CLEARANCE IN PREDICTING GLOMERULAR FILTRATION RATE . ESTIMATED GFR I S NOT APPLICABLE FOR DIALYSIS PATIEN TS. [employer] ID - [id number] 06:57:00 Test Item Value Reference Range Interpretation Comments MAGNESIUM (BEAKER) (test code = 2.1 mg/dL 1.6-2.6 627) [employer] ID - [id number] 06:57:00 Test Item Value Reference Range Interpretation Comments PHOSPHORUS (BEAKER) (test code = 3.1 mg/dL 2.3-4.7 604) [employer] ID - EDASICBC (HEMOGRAM ONLY)2020-09-15 06:37:00 Test [...] = 413) RAD, CHEST, 1 VIEW, NON [id number] 04:57:00while patient is intubated or has chest tubes.Reason for exam:->Status post CV SurgeryShould thisbe performed at the bedside?->Yes [facility] : 1935 Sex: MFINAL REPORT CLINICAL INDICATION: Postop Comparison: 09/14/2020 The cardiomediastinal contours are stable. The lung volumes remain low. There is mild elevation of the right hemidiaphragm. Central pulmonary vascular dominance and bilateral parenchymal and left pleural opacities are similar to previous. There is no pneumothorax. A right IJ CVC, mediastinal drain and bilateral chest tubes have been removed. Signed: Megha Leggett MDReport Verified Date/Time: 09/15/2020 04:57:14 Prepare [id number] 23:54:00 Test Item Value Reference Range Interpretation Comments CROSSMATCH (test code = 2264) COMPATIBLE Unit ABO (test code = O Pos 2552557) UNIT NUMBER (test code = [id number] 934-0) Status (test code = 9540464) TX_TIMEINCHART Blood Bank Product (test code RED BLOOD CELLS = 2263) PRODUCT CODE (test code = M9978A74 933-2) [facility] [id number] 23:54:00 Test Item Value Reference Range Interpretation Comments Unit ABO (test code = O Pos 2334510) UNIT NUMBER (test code = [id number] 934-0) Status (test code = 1146222) TX_TIMEINCHART Blood Bank Product (test code CRYOPRECIPITATE = 2263) PRODUCT CODE (test code = D6184D39 933-2) [facility] [id number] 23:54:00 Test Item Value Reference Range Interpretation Comments CROSSMATCH (test code = 2264) COMPATIBLE Unit ABO (test code = O Pos 5615669) UNIT NUMBER (test code = [id number] 934-0) Status (test code = 7149844) TX_TIMEINCHART Blood Bank Product (test code RED BLOOD CELLS = 2263) PRODUCT CODE (test code = W6035H15 933-2) [facility] [id number] 23:54:00 Test Item Value Reference Range Interpretation Comments Unit ABO (test code = O Pos 7683769) UNIT NUMBER (test code = [id number] 934-0) Status (test code = 8140917) TX_TIMEINCHART Blood Bank Product (test code CRYOPRECIPITATE = 2263) PRODUCT CODE (test code = U0091J82 933-2) [facility] [id number] 22:24:00 Test Item Value Reference Range Interpretation Comments POC-GLUCOSE METER 108 mg/dL 70-110 : Notified RN/MD: (BEAKER) (test code = TESTED AT [place] [address]38) [facility], [address]: Hard Met[employer] Engraver Hand/Techni ivone ID = [id number] for ANGI DIAZ POCT-GLUCOSE [id number] 17:56:00 Test Item Value Reference Range Interpretation Comments POC-GLUCOSE METER 97 mg/dL 70-110 : [facility] (test code = [facility], 1538) [address]: Hard Met[employer] Eng[employer]ver Hand/Techni ivone ID = [id number] for Annalisa Kennedy POCT-GLUCOSE [id number] 13:09:00 Test Item Value Reference Range Interpretation Comments POC-GLUCOSE METER 175 mg/dL 70-110 H : [facility] (test code = [facility], 1538) [address]: [employer] Met[employer] Eng[employer] Hand/Techni ivone ID = [id number] for Kristan Lacye POCT-GLUCOSE [id number] 10:27:00 Test Item Value Reference Range Interpretation Comments POC-GLUCOSE METER 66 mg/dL 70-110 L : [facility]) (test code = [facility], 153) [address]: [employer] Hand/Techni ivone ID = [id number] for Kristan Amado Platelet Aggregation: Function [id number] 09:45:00 Test Item Value Reference Range Interpretation Comments Pathologist: (test Marbella Graham, code = 2622) (electronic signature) Platelets (test code 146 See_Comment L [Autom ated = 4144) message] The system which generated this result transmitted reference range : 150 - 450 K/CU MM. The referen ce range was not used to interpr et this result as normal/abnormal . ADP (test code = 76 % 62-100 04303-6) Platelet Rich Plasma 158 See_Comment L [Autom ated (test code = 5844) message] The system which generated this result transmitted reference range : 200 - 300 k/cu mm. The referen ce range was not used to interpr et this result as normal/abnormal . Plt. Function Screen Normal Interpretation (test aggregation code = 4655) results with ADP. No evidence of platelet dysfunction or P2Y12 inhibitor effect. MALIHA (test code = MALIHA) Platelet Function Screen results may be falsely low with platelet counts<75,000/cu mm.[employer] Hand ID - [id number] ID - [id number] Lab Interpretation Abnormal (test code = 57264-6) [facility] HospitalPlatelet Aggregation: Function [id number] 09:45:00 Test Item Value Reference Range Interpretation Comments Pathologist: (test Marbella Graham, code = 2622) (electronic signature) Platelets (test code 146 See_Comment L [Autom ated = 2656) message] The system which generated this result transmitted reference range : 150 - 450 K/CU MM. The referen ce range was not used to interpr et this result as normal/abnormal . ADP (test code = 76 % 62-100 63444-6) Platelet Rich Plasma 158 See_Comment L [Autom ated (test code = 2134) message] The system which generated this result transmitted reference range : 200 - 300 k/cu mm. The referen ce range was not used to interpr et this result as normal/abnormal . Plt. Function Screen Normal Interpretation (test aggregation code = 4655) results with ADP. No evidence of platelet dysfunction or P2Y12 inhibitor effect. MALIHA (test code = MALIHA) Platelet Function Screen results may be falsely low with platelet counts<75,000/cu mm.[employer] Hand ID - 6000Operator ID - [id number] Lab Interpretation Abnormal (test code = 62345-0) [facility] HospitalPLATELET AGGREGATION: FUNCTION [id number] 09:45:00 Test Item Value Reference Range Interpretation Comments [id number] Marbella Graham MD (BEAKER) (test code = (electronic 2622) signature) PLATELET COUNT AGG 146 K/CU MM 150-450 L (BEAKER) (test code = 2656) ADP (BEAKER) (test code 76 % 62-100 = 4654) PLATELET RICH 158 k/cu mm 200-300 L PLASMA(BEAKER) (test code = 2134) PLATELET FUNCTION SCREEN Normal aggregation INTERPRETATION (BEAKER) results with ADP. No (test code = 4655) evidence of platelet dysfunction or P2Y12 inhibitor effect. Platelet Function Screen results may be falsely low with platelet counts<75,000/cu mm.[employer] Hand ID- 6000Operator ID - [id number] METABOLIC PANEL [...] 697) EGFR (BEAKER) (test 96 mL/min/1.73 ESTIMA TRICIA GFR IS code = 1092) sq m NOT ACCURATE CREATININE CLEARANCE IN PREDICTING GLOMERULAR FILTRATION RATE . ESTIMATED GFR I S NOT APPLICABLE FOR DIALYSIS PATIEN TS. [employer] Hand ID - [id number] 05:31:00 Test Item Value Reference Range Interpretation Comments MAGNESIUM (BEAKER) (test code = 2.0 mg/dL 1.6-2.6 627) [employer] Hand ID - [id number] 05:31:00 Test Item Value Reference Range Interpretation Comments PHOSPHORUS (BEAKER) (test code = 4.3 mg/dL 2.3-4.7 604) [employer] Hand ID - DBCBC (HEMOGRAM ONLY)2020-09-14 04:56:00 Test [...] = 413) RAD, CHEST, 1 VIEW, NON [id number] 03:54:00while patient is intubated or has chest tubes.Reason for exam:->Status post CV SurgeryShould thisbe performed at the bedside?->Yes [facility]PH[facility]IERRY : 1935 Sex: MFINAL REPORT RAD, CHEST, 1 VIEW, NON DEPT INDICATION: Status post CV Surgery COMPARISON: Prior day's exam FINDINGS: Portable frontal view of the chest. IMPRESSION: Support Lines: Interval extubation and removal the previously seen enteric tube. Otherwise unchanged support apparatus. Lungs and pleura: Increased bibasilar atelectasis. Coarse interstitial airspace opacities. Small leftpneumothorax.Heart and mediastinum: Stable contours. Stable surgical changes.Additional findings: None. Signed: Liat Ahmadi Verified Date/Time: 09/14/2020 03:54:16 POCT-GLUCOSE [id number] 01:49:00 Test Item Value Reference Range Interpretation Comments POC-GLUCOSE METER 120 mg/dL 70-110 H : TESTED A T [facility] 6720 (BEAKER) (test code = [facility]) [address]: Hard Metals Engraver Hand/Techni ivone ID = [id number] for Tressa Curiel POCT-GLUCOSE [id number] 22:56:00 Test Item Value Reference Range Interpretation Comments POC-GLUCOSE METER 147 mg/dL 70-110 H : TESTED A T [facility] 6720 (BEAKER) (test code = [facility], [facility]8) [address]: Hard Metals Engraver Hand/Techni ivone ID = [id number] for RO BLES, KITZEL POCT-GLUCOSE [id number] 20:48:00 Test Item Value Reference Range Interpretation Comments POC-GLUCOSE METER 125 mg/dL 70-110 H : TESTED A T [facility] 6720 (BEAKER) (test code = [facility], 1538) [address]: Hard Metals Engraver Hand/Techni ivone ID = [id number] for RO BLES, KITZEL POCT-GLUCOSE [id number] 18:45:00 Test Item Value Reference Range Interpretation Comments POC-GLUCOSE METER 171 mg/dL 70-110 H : TESTED A T [facility] 6720 (BEAKER) (test code = [facility], 1538) [address]: [employer] Eng[employer]ver Hand/Techni ivone ID = [id number] for ESTIVEN BOURNE Blood gas, [id number] 18:43:00 Test Item Value Reference Range Interpretation Comments pH, Arterial (test code 7.37 7.35-7.45 = 2744-1) pCO2, Arterial (test 39 See_Comment [Autom ated code = 2018-) message] The system which generated this result transmitted reference range : 35 - 45 mm Hg. The reference range was not used to interpret this result as normal/abnormal . pO2, Arterial (test 148 See_Comment H [Automa tricia code = 2703-7) message] The system which generated this result transmitted reference range : 80 - 90 mm Hg. The reference range was not used to interpret this result as normal/abnormal . O2 Sat, Arterial (test 98.9 % 96.0-97.0 H code = 2708-6) HCO3, Arterial (test 23 mmol/L 21-29 code = 1960-4) Base Excess, Arterial -2.6 mmol/L -2.0-3.0 L (test code = 1925-7) Patient Temperature 36.1 (test code = 8310-5) FIO2 (test code = 1819) 36 Lab Interpretation Abnormal (test code = 62915-1) [facility] [id number] 18:43:00 Test Item Value Reference Range Interpretation Comments pH, Arterial (test code 7.37 7.35-7.45 = 2744-1) pCO2, Arterial (test 39 See_Comment [Autom ated code = 2019-8) message] The system which generated this result transmitted reference range : 35 - 45 mm Hg. The reference range was not used to interpret this result as normal/abnormal . pO2, Arterial (test 148 See_Comment H [Automa tricia code = 2703-7) message] The system which generated this result transmitted reference range : 80 - 90 mm Hg. The reference range was not used to interpret this result as normal/abnormal . O2 Sat, Arterial (test 98.9 % 96.0-97.0 H code = 2708-6) HCO3, Arterial (test 23 mmol/L 21-29 code = 1960-4) Base Excess, Arterial -2.6 mmol/L -2.0-3.0 L (test code = 1925-7) Patient Temperature 36.1 (test code = 8310-5) FIO2 (test code = 1819) 36 Lab Interpretation Abnormal (test code = 92382-2) [facility], [id number] 18:43:00 Test Item Value Reference Range Interpretation [...] (test code = 1819) 36.0 BLOOD GAS, [id number] 18:03:00 Test Item Value Reference Range Interpretation [...] (BEAKER) (test code = 1819) 40.0 GLUCOSE-STAT [id number] 18:03:00 Test Item Value Reference Range Interpretation Comments GLUCOSE RANDOM (BEAKER) (test code 168 mg/dL 70-110 H = 652) [id number] 16:51:00 Test Item Value Reference Range Interpretation Comments Fibrinogen (test code = 3255-7) 223 mg/dl 225-434 L Lab Interpretation (test code = Abnormal 70698-0) [facility] 16:51:00 Test Item Value Reference Range Interpretation Comments PTT (test code = 56305-3) 35.5 See_Comment [ Automated message] The system Hubbub generated this result transmitted ref erence range: 22.5 - 3 6.0 seconds. The re ference range was not u sed to interpret this result as normal/abnor mal. Lab Interpretation (test Normal code = 64053-9) [facility]Fibrinogen[facility] 16:51:00 Test Item Value Reference Range Interpretation Comments Fibrinogen (test code = 3255-7) 223 mg/dl 225-434 L Lab Interpretation (test code = Abnormal 63714-7) [facility] 16:51:00 Test Item Value Reference Range Interpretation Comments PTT (test code = 60185-5) 35.5 See_Comment [ Automated message] The system Hubbub generated this result transmitted ref erence range: 22.5 - 3 6.0 seconds. The re ference range was not u sed to interpret this result as normal/abnor mal. Lab Interpretation (test Normal code = 20402-1) [facility]FIBRINOGEN2021-[facility]-15 16:51:00 Test Item Value Reference Range Interpretation Comments FIBRINOGEN LEVEL (BEAKER) (test 223 mg/dl 225-434 L code = 658) [id number] 16:51:00 Test Item Value Reference Range Interpretation Comments PARTIAL THROMBOPLASTIN TIME 35.5 seconds 22.5-36.0 (BEAKER) (test code = 760) PROTHROMBIN [id number] 16:50:00 Test Item Value Reference Range Interpretation Comments PROTIME (BEAKER) 17.0 seconds 11.9-14.2 H (test code = 759) INR (BEAKER) (test 1.42 See_Comment [Automat ed message] code = 370) The system Hubbub generated this result transmitted ref erence range: <=5.90. The reference range was not used to int erpret this result as normal/abnormal . Effective 10/27/2018: PT Reference Range ChangeNew: 11.9-14.2 Previous: 11.7- 14.7RECOMMENDED COUMADIN/WARFARIN INR THERAPY RANGESSTANDARD DOSE: 2.0-3.0 Includes: PROPHYLAXIS for venous thrombosis, systemic embolization; TREATMENT for venous thrombosis and/or pulmonary embolus.HIGH RISK: Target INR is 2.5-3.5 for patients wiht mechanical heart valves.POCT-GLUCOSE [id number] 16:48:00 Test Item Value Reference Range Interpretation Comments POC-GLUCOSE METER 139 mg/dL 70-110 H : TESTED A T [facility] 6720 (BEAKER) (test code = [facility], 1538) [address]83: [employer]ver Hand/Techni ivone ID = [id number] for ESTIVEN BOURNE CBC (HEMOGRAM ONLY)2020-09-13 16:48:00 Test Item Value [...] 0-0 (BEAKER) (test code = 413) POCT-GLUCOSE [id number] 15:11:00 Test Item Value Reference Range Interpretation Comments POC-GLUCOSE METER 138 mg/dL 70-110 H : TESTED A T [facility] 6720 (BEAKER) (test code = [facility], 153) 12469: Hard Met[employer] Eng[employer]ver Hand/Techni ivone ID = [id number] for ESTIVEN BOURNE POCT-GLUCOSE [id number] 14:30:00 Test Item Value Reference Range Interpretation Comments POC-GLUCOSE METER 134 mg/dL 70-110 H : TESTED A T [facility] 6720 (BEAKER) (test code = [facility], 1538) 23267: Hard Met[employer] Engraver Hand/Techni ivone ID = [id number] for ESTIVEN BOURNE Thromboelastograph (TEG)2020-09-13 13:51:00 Test Item Value Reference Range Interpretation Comments TEG Activated Clotting 5.2 See_Comment [Aut omated message] Time (test code = The system which 81601-4) generated this result transmitted ref erence range: 4.0 - 7. 0 minutes. The re ference range was not u sed to interpret this result as normal/abnor mal. TEG Fibrinogen Activity 65.3 See_Comment [Au tomated message] (test code = 11658-6) The sy stem which generated this result transmitted ref erence range: 61.0 - 7 3.0 degrees. The re ference range was not u sed to interpret this result as normal/abnor mal. TEG Platelet Aggregation 58.1 See_Comment [A utomated message] (test code = 31385-8) The sy stem which generated this result transmitted ref erence range: 55.0 - 6 5.0 MM. The reference r coreen was not used to interpret this result as normal/abnor mal. TEG-H Activated Clotting 5.7 See_Comment [A utomated message] Time (test code = 1411) The system which generated this result transmitted ref erence range: 4.0 - 7. 0 minutes. The re ference range was not u sed to interpret this result as normal/abnor mal. TEG-H Fibrinogen Activity 62.9 See_Comment [ Automated message] (test code = 1412) The syste m which generated this result transmitted ref erence range: 61.0 - 7 3.0 degrees. The re ference range was not u sed to interpret this result as normal/abnor mal. TEG-H Platelet 58.1 See_Comment [Automated m essage] Aggregation (test code = The system which 1413) generated this result transmitted ref erence range: 55.0 - 6 5.0 MM. The reference r coreen was not used to interpret this result as normal/abnor mal. Lab Interpretation (test Normal code = 55353-8) [facility] HospitalThromboelastograph (TEG)2020-09-13 13:51:00 Test Item Value Reference Range Interpretation Comments TEG Activated Clotting 5.2 See_Comment [Aut omated message] Time (test code = The system which 88568-6) generated this result transmitted ref erence range: 4.0 - 7. 0 minutes. The re ference range was not u sed to interpret this result as normal/abnor mal. TEG Fibrinogen Activity 65.3 See_Comment [Au tomated message] (test code = 88184-5) The sy stem which generated this result transmitted ref erence range: 61.0 - 7 3.0 degrees. The re ference range was not u sed to interpret this result as normal/abnor mal. TEG Platelet Aggregation 58.1 See_Comment [A utomated message] (test code = 68022-7) The sy stem which generated this result transmitted ref erence range: 55.0 - 6 5.0 MM. The reference r coreen was not used to interpret this result as normal/abnor mal. TEG-H Activated Clotting 5.7 See_Comment [A utomated message] Time (test code = 1411) The system which generated this result transmitted ref erence range: 4.0 - 7. 0 minutes. The re ference range was not u sed to interpret this result as normal/abnor mal. TEG-H Fibrinogen Activity 62.9 See_Comment [ Automated message] (test code = 1412) The syste m which generated this result transmitted ref erence range: 61.0 - 7 3.0 degrees. The re ference range was not u sed to interpret this result as normal/abnor mal. TEG-H Platelet 58.1 See_Comment [Automated m essage] Aggregation (test code = The system which 1413) generated this result transmitted ref erence range: 55.0 - 6 5.0 MM. The reference r coreen was not used to interpret this result as normal/abnor mal. Lab Interpretation (test Normal code = 60909-3) [facility] HospitalTHROMBOELASTOGRAPH (TEG)2020-09-13 13:51:00 Test Item Value Reference Range [...] 55.0-65.0 (test code = 1413) BASIC METABOLIC [id number] 12:23:00 Test Item Value Reference Range Interpretation [...] S NOT APPLICABLE FOR DIALYSIS PATIEN TS. [employer] Hand ID - [id number] 12:23:00 Test Item Value Reference Range Interpretation Comments MAGNESIUM (BEAKER) (test code = 2.3 mg/dL 1.6-2.6 627) [employer] ID - [id number] 12:23:00 Test Item Value Reference Range Interpretation Comments PHOSPHORUS (BEAKER) (test code = 3.1 mg/dL 2.3-4.7 604) [employer] ID - [id number] 12:10:00 Test Item Value Reference Range Interpretation Comments FIBRINOGEN LEVEL (BEAKER) (test 158 mg/dl 225-434 L code = 658) RAD, CHEST, 1 VIEW, NON [id number] 12:10:00Reason for exam:->Status post CV Surgery post op day 0Should this be performed at the bedside?->Yes [facility] : 1935 Sex: MFINAL REPORT CLINICAL HISTORY: Status post CV Surgery post op day 0 TECHNIQUE: 1 view of the chest. COMPARISON: 09/10/2020 IMPRESSION: The patient is status post median sternotomy withan endotracheal tube at the clavicles, a right central line in the SVC, a nasogastric tube with the sidehole at the gastroesophageal junction, and midline and bibasilar chest tubes. There is no pneumothorax. There are new hazy bibasilar airspace opacities and trace bilateral pleural effusions. Signed:Santosh Garcia MDReport Verified Date/Time: 09/13/2020 12:10:06 Reading Location: [facility] Radiology Reading Room APTT 2020-09-13 12:06:00 Test Item Value Reference Range Interpretation Comments PARTIAL THROMBOPLASTIN TIME 35.6 seconds 22.5-36.0 (BEAKER) (test code = 760) PROTHROMBIN TIME/[id number] 12:05:00 Test Item Value Reference Range Interpretation Comments PROTIME (BEAKER) 19.2 seconds 11.9-14.2 H (test code = 759) INR (BEAKER) (test 1.66 See_Comment [Automat ed message] code = 370) The system Hubbub generated this result transmitted ref erence range: <=5.90. The reference range was not used to int erpret this result as normal/abnormal . Effective 10/27/2018: PT Reference Range ChangeNew: 11.9-14.2 Previous: 11.7- 14.7RECOMMENDED COUMADIN/WARFARIN INR THERAPY RANGESSTANDARD DOSE: 2.0-3.0 Includes: PROPHYLAXIS for venous thrombosis, systemic embolization; TREATMENT for venous thrombosis and/or pulmonary embolus.HIGH RISK: Target INR is 2.5-3.5 for patients wiht mechanical heart valves.Prepare Leuko-Red [id number] 12:04:00 Test Item Value Reference Range Interpretation Comments CROSSMATCH (test code = 2264) COMPATIBLE Unit ABO (test code = O Pos 8147446) UNIT NUMBER (test code = [id number] 934-0) Status (test code = 7367339) READY Blood Bank Product (test code RED BLOOD CELLS = 2263) PRODUCT CODE (test code = S8715M65 933-2) [facility] HospitalPrepare Leuko-Red [id number] 12:04:00 Test Item Value Reference Range Interpretation Comments CROSSMATCH (test code = 2264) COMPATIBLE Unit ABO (test code = O Pos 5931495) UNIT NUMBER (test code = [id number] 934-0) Status (test code = 7930155) READY Blood Bank Product (test code RED BLOOD CELLS = 2263) PRODUCT CODE (test code = Z4312B05 933-2) [facility] HospitalLactic Acid, [id number] 12:02:00 Test Item Value Reference Range Interpretation Comments Lactate, Art (test code = 0.8 mmol/L 0.5-2.2 2874) MALIHA (test code = MALIHA) [employer] Hand ID - TONY Lab Interpretation (test Normal code = 62351-6) [facility] HospitalLactic Acid, [id number] 12:02:00 Test Item Value Reference Range Interpretation Comments Lactate, Art (test code = 0.8 mmol/L 0.5-2.2 2874) MALIHA (test code = MALIHA) [employer] Hand ID - TONY Lab Interpretation (test Normal code = 43019-0) [facility] HospitalLACTIC ACID, [id number] 12:02:00 Test Item Value Reference Range Interpretation Comments LACTATE BLOOD ARTERIAL (2) 0.8 mmol/L 0.5-2.2 (BEAKER) (test code = 2874) [employer] Hand ID - [place] GAS, [id number] 11:57:00 Test Item Value Reference Range Interpretation [...] (BEAKER) (test code = 1819) 100.0 CALCIUM, [id number] 11:57:00 Test Item Value Reference Range Interpretation Comments CALCIUM IONIZED (BEAKER) (test 1.32 mmol/L 1.12-1.27 H code = 698) PH, BLOOD (BEAKER) (test code = 7.41 1810) CBC W/PLT COUNT & AUTO [id number] 11:55:00 Test Item Value Reference Range Interpretation [...] 0-1 PERCENT (BEAKER) (test code = 2801) Oxygen saturation, [id number] 11:52:00 Test Item Value Reference Range Interpretation Comments O2 Saturation (Measured) (test code = 59.4 % 48457-4) [facility] HospitalOxygen saturation, [id number] 11:52:00 Test Item Value Reference Range Interpretation Comments O2 Saturation (Measured) (test code = 59.4 % 36376-1) [facility] HospitalOXYGEN SATURATION, [id number] 11:52:00 Test Item Value Reference Range Interpretation Comments O2 SATURATION (MEASURED) (BEAKER) 59.4 % (test code = 1455) POC ACTIVATED CLOTTING [id number] 10:59:00 Test Item Value Reference Range Interpretation Comments Activated Clotting Time 98 sec : 74 -137 seconds, (test code = 441) Baseline: TESTED AT [address], [address]: Hard Met[employer] Engraver Hand/Techni ivone ID = [id number] for REGINA HAM N [facility] ACTIVATED CLOTTING [id number] 10:59:00 Test Item Value Reference Range Interpretation Comments Activated Clotting Time 98 sec : 74 -137 seconds, (test code = 441) Baseline: TESTED AT [address], [facility] 30: Hard Metals Engraver Hand/Techni ivone ID = [id number] for REGINA HAM N [facility] HospitalPOCT-[id number] 10:59:00 Test Item Value Reference Range Interpretation Comments ACTIVATED CLOTTING TIME 98 sec : 74 -137 seconds, (BEAKER) (test code = Baseli ne: TESTED AT 441) [address], [facility] 30: Hard Metals Engraver Hand/Techni ivone ID = [id number] for REGINA HAM N [id number] 10:59:00 Test Item Value Reference Range Interpretation Comments ACTIVATED CLOTTING TIME 703 sec : 74 -137 seconds, (BEAKER) (test code = Baseli ne: TESTED AT 441) [address], [address]: [employer] Met[employer] Eng[employer] Hand/Techni ivone ID = [id number] for REGINA HAM N [id number] 10:59:00 Test Item Value Reference Range Interpretation Comments ACTIVATED CLOTTING TIME 577 sec : 74 -137 seconds, (BEAKER) (test code = Baseli ne: TESTED AT 441) [address], [facility] 30: [employer] Eng[employer] Hand/Techni ivone ID = [id number] for REGINA HAM N [id number] 10:59:00 Test Item Value Reference Range Interpretation Comments ACTIVATED CLOTTING TIME 494 sec : 74 -137 seconds, (BEAKER) (test code = Baseli ne: TESTED AT 441) [address], [facility] 30: Hard Met[employer] Eng[employer]ver Hand/Techni ivone ID = [id number] for REGINA HAM N [id number] 10:48:00 Test Item Value Reference Range Interpretation Comments PARTIAL THROMBOPLASTIN TIME 31.4 seconds 22.5-36.0 (BEAKER) (test code = 760) [id number] 10:48:00 Test Item Value Reference Range Interpretation Comments FIBRINOGEN LEVEL (BEAKER) (test 158 mg/dl 225-434 L code = 658) Platelet [id number] 10:47:00 Test Item Value Reference Range Interpretation Comments Platelets (test code 108 See_Comment L [Autom ated = 777-3) message] The system which generated this result transmit tricia reference range : 150 - 450 K/CU MM. The reference range was not u sed to interpret th is result as normal/abnormal . MALIHA (test code = MALIHA) [employer] Hand ID - [id number] Lab Interpretation Abnormal (test code = 78852-1) [facility] HospitalPlatelet [id number] 10:47:00 Test Item Value Reference Range Interpretation Comments Platelets (test code 108 See_Comment L [Autom ated = 777-3) message] The system which generated this result transmit tricia reference range : 150 - 450 K/CU MM. The reference range was not u sed to interpret th is result as normal/abnormal . MALIHA (test code = MALIHA) [employer] Hand ID - 6000 Lab Interpretation Abnormal (test code = 60979-8) [facility] HospitalPROTHROMBIN TIME/[id number] 10:47:00 Test Item Value Reference Range Interpretation Comments PROTIME (BEAKER) 20.3 seconds 11.9-14.2 H (test code = 759) INR (BEAKER) (test 1.79 See_Comment [Automat ed message] code = 370) The system whic h generated this result transmitted ref erence range: <=5.90. The reference range was not used to int erpret this result as normal/abnormal . Effective 10/27/2018: PT Reference Range ChangeNew: 11.9-14.2 Previous: 11.7- 14.7RECOMMENDED COUMADIN/WARFARIN INR THERAPY RANGESSTANDARD DOSE: 2.0-3.0 Includes: PROPHYLAXIS for venous thrombosis, systemic embolization; TREATMENT for venous thrombosis and/or pulmonary embolus.HIGH RISK: Target INR is 2.5-3.5 for patients wiht mechanical heart valves.PLATELET [id number] 10:47:00 Test Item Value Reference Range Interpretation Comments PLATELET COUNT (BEAKER) (test 108 K/CU MM 150-450 L code = 756) [employer] Hand ID - 6000CALCIUM, [id number] 10:41:00 Test Item Value Reference Range Interpretation Comments CALCIUM IONIZED (BEAKER) (test 1.88 mmol/L 1.12-1.27 HH code = 698) PH, BLOOD (BEAKER) (test code = 7.36 1810) POTASSIUM-STAT [id number] 10:39:00 Test Item Value Reference Range Interpretation Comments POTASSIUM (BEAKER) (test code = 4.4 meq/L 3.6-5.5 379) BLOOD GAS, [id number] 10:39:00 Test Item Value Reference Range Interpretation [...] (test code = 1819) 100.0 SODIUM NA-STAT [id number] 10:39:00 Test Item Value Reference Range Interpretation Comments SODIUM (BEAKER) (test code = 381) 132 meq/L 136-145 L GLUCOSE-STAT [id number] 10:39:00 Test Item Value Reference Range Interpretation Comments GLUCOSE RANDOM (BEAKER) (test code 195 mg/dL 70-110 H = 652) HGB/HCT (H&H) - STAT [id number] 10:39:00 Test Item Value Reference Range Interpretation Comments HEMOGLOBIN (BEAKER) (test code = 7.4 GM/DL 13.0-16.8 L 410) HEMATOCRIT (BEAKER) (test code = 22.0 % 40.0-50.0 L 411) BLOOD GAS, [id number] 10:20:00 Test Item Value Reference Range Interpretation [...] (BEAKER) (test code = 1819) 92.0 POTASSIUM-STAT [id number] 10:20:00 Test Item Value Reference Range Interpretation Comments POTASSIUM (BEAKER) (test code = 4.7 meq/L 3.6-5.5 379) CALCIUM, [id number] 10:20:00 Test Item Value Reference Range Interpretation Comments CALCIUM IONIZED (BEAKER) (test 1.03 mmol/L 1.12-1.27 L code = 698) PH, BLOOD (BEAKER) (test code = 7.38 1810) SODIUM NA-STAT [id number] 10:20:00 Test Item Value Reference Range Interpretation Comments SODIUM (BEAKER) (test code = 381) 132 meq/L 136-145 L GLUCOSE-STAT [id number] 10:20:00 Test Item Value Reference Range Interpretation Comments GLUCOSE RANDOM (BEAKER) (test code 204 mg/dL 70-110 H = 652) HGB/HCT (H&H) - STAT [id number] 10:20:00 Test Item Value Reference Range Interpretation Comments HEMOGLOBIN (BEAKER) (test code = 7.1 GM/DL 13.0-16.8 L 410) HEMATOCRIT (BEAKER) (test code = 21.0 % 40.0-50.0 L 411) GLUCOSE-STAT [id number] 09:45:00 Test Item Value Reference Range Interpretation Comments GLUCOSE RANDOM (BEAKER) (test code 220 mg/dL 70-110 H = 652) HGB/HCT (H&H) - STAT [id number] 09:45:00 Test Item Value Reference Range Interpretation Comments HEMOGLOBIN (BEAKER) (test code = 6.7 GM/DL 13.0-16.8 L 410) HEMATOCRIT (BEAKER) (test code = 20.0 % 40.0-50.0 L 411) SODIUM NA-STAT [id number] 09:45:00 Test Item Value Reference Range Interpretation Comments SODIUM (BEAKER) (test code = 381) 130 meq/L 136-145 L BLOOD GAS, [id number] 09:45:00 Test Item Value Reference Range Interpretation [...] (BEAKER) (test code = 1819) 70.0 POTASSIUM-STAT [id number] 09:44:00 Test Item Value Reference Range Interpretation Comments POTASSIUM (BEAKER) (test code = 5.3 meq/L 3.6-5.5 379) Blood gas, [id number] 09:26:00 Test Item Value Reference Range Interpretation Comments pH, Nestor (test code = 7.42 7.32-7.42 2746-6) pCO2, Nestor (test code = 37 See_Comment L [Aut omated 755) message] The sy stem which generated this result transmitted reference range : 41 - 51 mm Hg. The reference range was not used to interpret this result as normal/abnormal . pO2, Nestor (test code = 381 See_Comment H [Auto mated 7785-2) message] The sy stem which generated this result transmitted reference range : 25 - 40 mm Hg. The reference range was not used to interpret this result as normal/abnormal . O2 Sat, Nestor (test code 99.8 % 40.0-70.0 H = 2711-0) HCO3, Nestor (test code = 25 mmol/L 21-29 18297-6) Base Excess, Nestor (test -0.9 mmol/L -2.0-3.0 code = 1927-3) Patient Temperature 33.0 (test code = 8310-5) FIO2 (test code = 1819) 80 Lab Interpretation Abnormal (test code = 78630-2) [facility] HospitalBlood [facility], [id number] 09:26:00 Test Item Value Reference Range Interpretation Comments pH, Nestor (test code = 7.42 7.32-7.42 2746-6) pCO2, Nestor (test code = 37 See_Comment L [Aut omated 755) message] The sy stem which generated this result transmitted reference range : 41 - 51 mm Hg. The reference range was not used to interpret this result as normal/abnormal . pO2, Nestor (test code = 381 See_Comment H [Auto mated 2705-2) message] The sy stem which generated this result transmitted reference range : 25 - 40 mm Hg. The reference range was not used to interpret this result as normal/abnormal . O2 Sat, Nestor (test code 99.8 % 40.0-70.0 H = 2711-0) HCO3, Nestor (test code = 25 mmol/L 21-29 29064-7) Base Excess, Nestor (test -0.9 mmol/L -2.0-3.0 code = 1927-3) Patient Temperature 33.0 (test code = 8310-5) FIO2 (test code = 1819) 80 Lab Interpretation Abnormal (test code = 18365-5) [facility], [id number] 09:26:00 Test Item Value Reference Range Interpretation [...] (test code = 1819) 80.0 BLOOD GAS, [id number] 09:26:00 Test Item Value Reference Range Interpretation [...] (test code = 1819) 80.0 SODIUM NA-STAT [id number] 09:26:00 Test Item Value Reference Range Interpretation Comments SODIUM (BEAKER) (test code = 381) 131 meq/L 136-145 L GLUCOSE-STAT [id number] 09:26:00 Test Item Value Reference Range Interpretation Comments GLUCOSE RANDOM (BEAKER) (test code 227 mg/dL 70-110 H = 652) HGB/HCT (H&H) - STAT [id number] 09:26:00 Test Item Value Reference Range Interpretation Comments HEMOGLOBIN (BEAKER) (test code = 6.9 GM/DL 13.0-16.8 L 410) HEMATOCRIT (BEAKER) (test code = 20.0 % 40.0-50.0 L 411) POTASSIUM-STAT [id number] 09:25:00 Test Item Value Reference Range Interpretation Comments POTASSIUM (BEAKER) (test code = 4.6 meq/L 3.6-5.5 379) GLUCOSE-STAT [id number] 08:08:00 Test Item Value Reference Range Interpretation Comments GLUCOSE RANDOM (BEAKER) (test code 101 mg/dL 70-110 = 652) POTASSIUM-STAT [id number] 08:08:00 Test Item Value Reference Range Interpretation Comments POTASSIUM (BEAKER) (test code = 3.6 meq/L 3.6-5.5 379) CALCIUM, [id number] 08:08:00 Test Item Value Reference Range Interpretation Comments CALCIUM IONIZED (BEAKER) (test 1.10 mmol/L 1.12-1.27 L code = 698) PH, BLOOD (BEAKER) (test code = 7.49 1810) BLOOD GAS, [id number] 08:08:00 Test Item Value Reference Range Interpretation [...] (test code = 1819) 32.0 SODIUM NA-STAT [id number] 08:08:00 Test Item Value Reference Range Interpretation Comments SODIUM (BEAKER) (test code = 381) 133 meq/L 136-145 L HGB/HCT (H&H) - STAT [id number] 08:08:00 Test Item Value Reference Range Interpretation Comments HEMOGLOBIN (BEAKER) (test code = 10.5 GM/DL 13.0-16.8 L 410) HEMATOCRIT (BEAKER) (test code = 31.0 % 40.0-50.0 L 411) POCT-GLUCOSE [id number] 06:06:00 Test Item Value Reference Range Interpretation Comments POC-GLUCOSE METER 92 mg/dL 70-110 : [facility] (BEAKER) (test code = IMANI [place], 1538) [address]: [employer] Hand/Techni ivone ID = [id number] for JORD AN, LACRYSTAL PLATELET AGGREGATION: FUNCTION [id number] 16:06:00 Test Item Value Reference Range Interpretation Comments [id number] Truong Nance MD (BEAKER) (test code = [...] may be falsely low with platelet counts<75,000/cu mm.[employer] ID- [id number], CHEST, 2 [id number] 15:29:00In departmentReason for exam:->Preop screenShould this be performed at the bedside?->[facility] : 1935 Sex: MFINAL REPORT CLINICAL HISTORY: Preop screen TECHNIQUE: 2 views of the chest COMPARISON: None IMPRESSION: There are no focal infiltrates or effusions. The cardiomediastinal silhouette is within normal limits for size. The osseous structures appear intact. Signed: Santosh Garcia Verified Date/Time: 09/10/2020 15:29:29 Reading Location: [facility] Radiology Reading Room [facility] signed by: SANTOSH GARCIA M.D. on 09/10/2020 03:29 PMSARS-COV2/RT-PCR ([facility])2020-09-10 15:02:00 Test Item Value Reference Range Interpretation Comments SARS-COV2/RT-PCR (test Negative Not Detected, Negative, code = 7129378) See external report for linked test SARS-COV-2 PERFORMING LAB [facility] (test code = 4447559) Negative result for this test determines that [...] justifying the authorization of the emergency use ofin vitro diagnostic tests for detection and/or diagnosis of COVID-19 is terminated under Section 564(b)(2) of the Act or the EUA is revoked under Section 564(g) of the Act.Fact Sheet for Healthcare Prov iders:https://www.Edifilm.[employer]/sites/default/files/product/documents/Fact_Sheet_HC _Ngosebfwa_Flno_OJUI-GsI-9.pdfFact Sheet for Healthcare Patients:https://www.[employer]if[employer]/sites/default/files/product/docume nts/Bung_Vcerg_Dmglelen_Ukct_KGXZ-VhB-4.pdfPerforming Laboratory:[place] [address], [place] [address]Ymbwdnrequ [id number] 12:12:00 Test Item Value Reference Range Interpretation Comments Hemoglobin A1C (test code = 4548-4) 5.3 % 4.3-6.1 Lab Interpretation (test code = Normal 32386-1) [facility] [id number] 12:12:00 Test Item Value Reference Range Interpretation Comments Hemoglobin A1C (test code = 4548-4) 5.3 % 4.3-6.1 Lab Interpretation (test code = Normal 35306-8) [facility] [id number] 12:12:00 Test Item Value Reference Range Interpretation Comments HEMOGLOBIN A1C (BEAKER) (test code = 5.3 % 4.3-6.1 368) Lipid [id number] 11:39:00 Test Item Value Reference Range Interpretation Comments Triglycerides (test 63 mg/dL code = 2571-8) Cholesterol (test code 101 mg/dL = 2093-3) HDL (test code = 31 mg/dL 2084-) LDL Calculated (test 57 mg/dL code = 83582-3) MALIHA (test code = MALIHA) Triglyceride Reference Range: Low Risk <150 Borderline 150-199 High Risk 200-499 Very High Risk >=500 Cholesterol Reference Range: Low Risk <200 Borderline 200-239 High Risk >240 HDL Cholesterol Reference Range: Low Risk >=60 High Risk <40 LDL Cholesterol Reference Range: Optimal <100 Near Optimal 100-129 Borderline 130-159 High 160-189 Very High >=190 [employer] KRISTY Cuenca [facility] Hospital[facility]id [id number] 11:39:00 Test Item Value Reference Range Interpretation Comments Triglycerides (test 63 mg/dL code = 2571-8) Cholesterol (test code 101 mg/dL = 2093-3) HDL (test code = 31 mg/dL 2084-9) LDL Calculated (test 57 mg/dL code = 29002-5) MALIHA (test code = MALIHA) Triglyceride Reference Range: Low Risk <150 Borderline 150-199 High Risk 200-499 Very High Risk >=500 Cholesterol Reference Range: Low Risk <200 Borderline 200-239 High Risk >240 HDL Cholesterol Reference Range: Low Risk >=60 High Risk <40 LDL Cholesterol Reference Range: Optimal <100 Near Optimal 100-129 Borderline 130-159 High 160-189 Very High >=190 [employer] ID - CRYSTAL Cuenca [facility] METABOL[facility] [id number] 11:39:00 Test Item Value Reference Range Interpretation [...] 347) EGFR (BEAKER) (test 85 mL/min/1.73 ESTIMA TRICIA GFR IS code = 1092) sq m NOT ACCURATE CREATININE CLEARANCE IN PREDICTING GLOMERULAR FILTRATION RATE . ESTIMATED GFR I S NOT APPLICABLE FOR DIALYSIS PATIEN TS. [employer] ID - CRYSTAL [id number] 11:39:00 Test Item Value Reference Range Interpretation Comments MAGNESIUM (BEAKER) (test code = 2.0 mg/dL 1.6-2.6 627) [employer] ID - CRYSTAL CLIPID [id number] 11:39:00 Test Item Value Reference Range Interpretation Comments TRIGLYCERIDES (BEAKER) (test code = 63 mg/dL 540) CHOLESTEROL (BEAKER) (test code = 101 mg/dL 631) HDL CHOLESTEROL (BEAKER) (test code 31 mg/dL = 976) LDL CHOLESTEROL CALCULATED (BEAKER) 57 mg/dL (test code = 633) Triglyceride Reference Range: Low Risk <150 Borderline 150-199 High Risk 200- 499 Very High Risk >=500Cholesterol Reference Range: Low Risk <200 Borderline 200-239 High Risk >240HDL Cholesterol Reference Range: Low Risk >=60 High Risk <40LDL Cholesterol Reference Range: Optimal <100 Near Optimal 100-129 Borderline 130-159 High 160-189 Very High >=190 [employer] ID - CRYSTAL [id number] 11:26:00 Test Item Value Reference Range Interpretation Comments PARTIAL THROMBOPLASTIN TIME 28.1 seconds 22.5-36.0 (BEAKER) (test code = 760) PROTHROMBIN TIME/[id number] 11:25:00 Test Item Value Reference Range Interpretation Comments PROTIME (BEAKER) 13.8 seconds 11.9-14.2 (test code = 759) INR (BEAKER) (test 1.09 See_Comment [Automat ed message] code = 370) The system Hubbub generated this result transmitted ref erence range: <=5.90. The reference range was not used to int erpret this result as normal/abnormal . Effective 10/27/2018: PT Reference Range ChangeNew: 11.9-14.2 Previous: 11.7- 14.7RECOMMENDED COUMADIN/WARFARIN INR THERAPY RANGESSTANDARD DOSE: 2.0-3.0 Includes: PROPHYLAXIS for venous thrombosis, systemic embolization; TREATMENT for venous thrombosis and/or pulmonary embolus.HIGH RISK: Target INR is 2.5-3.5 for patients wiht mechanical heart valves.CBC W/PLT COUNT & AUTO [id number] 11:17:00 Test Item Value Reference Range Interpretation [...]
--- NOTE | 2022-08-25 20:16 | RAD REPORT ---
EXAM DESCRIPTION: RAD - Chest Single View - 08/25/2022 8:04 pm CLINICAL HISTORY: weakness COMPARISON: Chest Pa And Lat (2 Views) dated 08/23/2020; CHEST PA AND LAT 2 VIEW dated 07/10/2015; CHES T SINGLE VIEW dated 10/18/2013; CHEST PA AND LAT 2 VIEW dated 10/10/2009 FINDINGS: Lines: None. Lungs: Increased coarsening of the interstitial markings. Pleural: No significant pleural effusions or pneumothorax. Cardiac: Cardiomegaly. Mediastinum: Within normal limits. Bones: No acute fractures. Sternotomy. Other: None IMPRESSION: Coarsened interstitial markings could reflect infection or inflammation. Edema less like ly.
[2022-08-25 20:41] LABS: Protime INR 1.23
[2022-08-25 20:42] LABS: Absolute Lymphocytes (CBC) 0.9 K/uL (0.7-4.9); Hematocrit 30.3 % (39.6-49.0); Lymphocytes % 11.5 % (15.3-44.8); MCV 93.1 fL (80-100); MPV 9.2 fL (7.6-11.3); RBC Red Blood Cell Count 3.25 M/uL (4.33-5.43)
[2022-08-25 20:54] LABS: Specific Gravity 1.023 (1.005-1.030); Urine Bacteria None Seen /HPF (<20); Urine Bilirubin NEGATIVE (Negative); Urine Blood Negative (Negative); Urine Clarity Clear (Clear); Urine Color Light-Yellow (Yellow); Urine Glucose NEGATIVE (Negative); Urine Mucus Slight /HPF (None Seen); Urine Protein 1+ (Negative); Urine Urobilinogen Normal (Normal)
[2022-08-25 21:03] LABS: ALT/SGPT 24 U/L (16-61); Albumin 2.9 g/dL (3.4-5.0); Alkaline Phosphatase 109 U/L (45-117); BUN Blood Urea Nitrogen 29 mg/dL (7-18); Bicarbonate 30 mEq/L (21-32); Bilirubin Total 0.6 mg/dL (0.2-1.0); Glomerular Filtration Rate 66 ml/min (=/>90); Glucose Level 116 mg/dL (74-106); Protein, Total 9.4 g/dL (6.4-8.2); Sodium Level 133 mEq/L (136-145)
[2022-08-25 21:04] LABS: AST/SGOT 31 U/L (15-37); Bilirubin Direct < 0.1 mg/dL (0-0.2); Magnesium 2.7 mg/dL (1.6-2.4); Potassium 4.6 mEq/L (3.5-5.1)
--- NOTE | 2022-08-25 21:06 | RAD REPORT ---
EXAM DESCRIPTION: CT - Head Brain Wo Cont - 08/25/2022 8:56 pm CLINICAL HISTORY: WEAKNESS COMPARISON: No comparisons TECHNIQUE: All CT scans are performed using dose optimization technique as appropriate and may inclu de automated exposure control or mA/KV adjustment according to patient size. FINDINGS: No intracranial hemorrhage, hydrocephalus or extra-axial fluid collection.No areas of brai n edema or evidence of midline shift. Cerebral atrophy. Mild chronic small vessel ischemic changes. The paranasal sinuses and mastoids are clear. Heterogeneous appearance of the osseous structures. IMPRESSION: No acute intracranial abnormality.
[2022-08-25 21:18] LABS: SARS-COV-2 RT PCR NEGATIVE (NEGATIVE)
--- NOTE | 2022-08-25 21:18 | RAD REPORT ---
EXAM DESCRIPTION: CTAbdomen Pelvis W Contrast - 08/25/2022 8:56 pm CLINICAL HISTORY: diarrhea COMPARISON: CT ABD PELVIS W CONTRAST dated 07/14/2014; CT ABD PELVIS W CONTRAST dated 09/10/2011; DEXA , BONE DENSITY AXIAL SKELE dated 08/06/2022 TECHNIQUE: CT of the abdomen and pelvis was performed with IV contrast. All CT scans are performed using dose optimization technique as appropriate and may include automated exposure control or mA/KV adjustment according to patient size. FINDINGS: Lower chest: Coronary artery calcifications. Moderate hiatal hernia. Liver: Too small to characterize liver lesions which are likely benign. Biliary: No biliary ductal dilatation. Stomach: No significant focal abnormality. Duodenum: No significant focal abnormality. Pancreas: X-ray. Spleen: No significant abnormality. Adrenal: No suspicious lesions. Kidney/ureter: No hydronephrosis. No renal calculi. Too small to characterize and/or benign appearing renal lesions are noted. Retroperitoneum: No retroperitoneal adenopathy. Vascular: No aneurysm. Atherosclerosis. Bowel: Inflammatory changes associated the proximal and mid sigmoid colon. No bowel obstruction. Mode rate stool. Peritoneum: No ascites or free air. Fat containing umbilical hernia. Bladder: Grossly unremarkable. Reproductive: No adnexal masses. Bones: Heterogeneous appearance the osseous structures with increased osteopenia . Probably remote T1 1 and T12 compression fractures. Sternotomy . Other: n/a IMPRESSION: 1. Inflammatory changes associated the proximal and mid sigmoid colon consistent with ei ther short-segment colitis or diverticulitis. Follow-up colonoscopy be considered. No bowel obstructi on, abscess, or free air. 2. Diffuse heterogeneity and osteopenia of the osseous structures that is new from prior CT dated . The etiology is uncertain. Multiple myeloma is a consideration.
--- NOTE | 2022-08-25 21:48 | EDPHYS ---
Physician Documentation [facility] Name: Shyam Brantley Age: 86 yrs Sex: Male : 1935 Arrival Date: 08/25/2022 Time: 17:05 Bed 3 Private MD: ED Physician Deandre Portillo HPI: 08/25 18:00 This 86 yrs old Male presents to ER via Ambulatory with complaints of Altered Mental cp Status, Diarrhea. 18:00 The patient presents with confusion. Onset: The symptoms/episode began/occurred today, cp started upon awakening from nap this afternoon and now resolved. Son reports patient has had increased weakness over past 1 week. Possible causes: prescribed tramadol and gabapentin for back pain due to vertebral fractures. Associated signs and symptoms: Pertinent positives: diarrhea, weakness, Pertinent negatives: abdominal pain, chest pain, blood in stools. Current symptoms: In the emergency department the patient's symptoms Patient c/o general weakness. Patient's baseline: Neuro: alert and fully oriented, Motor: no deficits, Ambulation: walks with assist only, uses walker, Speech: normal. 18:00 Son reports patient was c/o constipation several days ago, so he was given magnesium cp citrate and over past 2 days has had diarrhea. Historical: - Allergies: 17:25 PENICILLINS; ll1 - PMHx: 17:25 High Cholesterol; ll1 - PSHx: 17:25 cardiac stents; Double Bypass; hernia repair; ll1 - Immunization history:: Client reports receiving the 2nd dose of the Covid vaccine. - Social history:: Smoking status: Patient denies any tobacco usage or history of. ROS: 18:05 Eyes: Negative for injury, pain, redness, and discharge. cp 18:05 Constitutional: Negative for body aches, chills, fever, poor PO intake. 18:05 ENT: Negative for drainage from ear(s), ear pain, sore throat, difficulty swallowing, difficulty handling secretions. 18:05 Cardiovascular: Negative for chest pain, edema, palpitations. 18:05 Respiratory: Negative for cough, shortness of breath, wheezing. 18:05 Abdomen/GI: Positive for diarrhea, Negative for abdominal pain, vomiting, constipation, black/tarry stool, rectal bleeding. 18:05 : Negative for urinary symptoms. 18:05 Neuro: Positive for weakness, Negative for dizziness, headache, syncope. Exam: 18:10 Constitutional: The patient appears in no acute distress, alert, awake, cp non-diaphoretic, non-toxic, well developed, well nourished. 18:10 Head/Face: Normocephalic, atraumatic. cp 18:10 Eyes: Periorbital structures: appear normal, Pupils: equal, round, and reactive to light and accomodation, Extraocular movements: intact throughout, Conjunctiva: normal, no exudate, no injection, Sclera: no appreciated abnormality, Lids and lashes: appear normal, bilaterally. 18:10 ENT: External ear(s): are unremarkable, Nose: is normal, Mouth: Lips: moist, Oral mucosa: pink and intact, moist, Posterior pharynx: is normal, airway is patent, no erythema, no exudate. 18:10 Neck: ROM/movement: is normal, is supple, without pain, no range of motions limitations. 18:10 Chest/axilla: Inspection: normal, Palpation: is normal, no crepitus, no tenderness. 18:10 Cardiovascular: Rate: normal, Rhythm: regular, Edema: is not appreciated, JVD: is not appreciated. 18:10 Respiratory: the patient does not display signs of respiratory distress, Respirations: normal, no use of accessory muscles, no retractions, labored breathing, is not present, Breath sounds: are clear throughout, no decreased breath sounds, no stridor, no wheezing. 18:10 Abdomen/GI: Inspection: abdomen appears normal, Bowel sounds: active, all quadrants, Palpation: abdomen is soft and non-tender, in all quadrants. 18:10 Back: pain, is absent, ROM is normal. 18:10 Skin: cellulitis, is not appreciated, no rash present. 18:10 Neuro: Orientation: to person, place \T\ time. Mentation: is normal, Cerebellar function: Romberg testing is negative, Motor: moves all fours, general weakness with no focal deficits, Sensation: is normal. 20:23 ECG was reviewed by the Attending Physician. cp Vital Signs: 17:20 BP 133 / 70; Pulse 70; Resp 16; Temp 98.9; Pulse Ox 97% on R/A; Weight 65.32 kg; Height ll1 5 ft. 7 in. ; Pain 5/10; 20:30 BP 146 / 81; Pulse 64; Resp 19 S; Pulse Ox 96% on R/A; aa9 21:32 BP 143 / 61; Pulse 55; Resp 17 S; Pulse Ox 99% on R/A; aa9 23:00 BP 124 / 68; Pulse 55; Resp 17 S; Pulse Ox 95% on R/A; aa9 17:20 Body Mass Index 22.55 (65.32 kg, 170.18 cm) ll1 17:20 Pain Scale: Adult ll1 MDM: 17:42 Patient medically screened. [facility] 21:25 Data reviewed: vital signs, nurses notes, lab test result(s), EKG, radiologic studies, cp CT scan, plain films. 21:25 I considered the following discharge prescriptions or medication management in the emergency department Medications were administered in the Emergency Department. See MAR. Historians other than the Patient: Family Member: son provides HPI. Response to treatment: the patient's symptoms have mildly improved after treatment. ED course: attempt to contact DR Hoffman, message left on voicemail. 22:04 ED course: attempt to contact DR Hoffman to discuss admission, message left on voicemail. 08/25 19:09 Order name: Basic Metabolic Panel; Complete Time: 21:19 08/25 21:19 Interpretation: Normal except: NA 133; CL 97; GLUC 116; BUN 29; GFR 66; CA 10.7. 08/25 19:09 Order name: CBC with Diff; Complete Time: 21:19 08/25 21:20 Interpretation: Normal except: RBC 3.25; HGB 10.1; HCT 30.3; RDW 17.9; KATHERYN% 76.4; LYM% cp 11.5. 08/25 19:09 Order name: LFT's; Complete Time: 21:19 08/25 21:20 Interpretation: Normal except: TP 9.4; ALB 2.9; GLOB 6.5; A/G 0.4. 08/25 19:09 Order name: Magnesium; Complete Time: 21:19 08/25 21:20 Interpretation: Abnormal: MG 2.7. 08/25 19:09 Order name: PT-INR; Complete Time: 21:19 08/25 21:20 Interpretation: Reviewed. 08/25 19:09 Order name: Troponin HS; Complete Time: 21:19 08/25 21:26 Interpretation: Troponin HS 13.0; Reviewed. 08/25 19:22 Order name: Lactate w/ 2H reflex if indic.; Complete Time: 21:19 08/25 21:24 Interpretation: Reviewed. 08/25 19:22 Order name: Blood Culture Adult (2) 08/25 19:22 Order name: COVID-19/FLU A+B; Complete Time: 21:19 08/25 20:15 Order name: Urinalysis W/Microscopic; Complete Time: 21:19 08/25 21:22 Interpretation: Normal except: UPROT 1+. 08/25 23:17 Order name: Basic Metabolic Panel [facility] 08/25 23:17 Order name: Basic Metabolic Panel [facility] 08/25 23:17 Order name: CBC with Automated Diff [facility] 08/25 23:17 Order name: CBC with Automated Diff [facility] 08/25 23:17 Order name: Lipase [facility] 08/25 23:17 Order name: Lipase [facility] 08/25 23:17 Order name: Liver (Hepatic) Function [facility] 08/25 23:17 Order name: Liver (Hepatic) Function [facility] 08/25 19:09 Order name: XRAY Chest (1 view); Complete Time: 21:19 08/25 19:09 Order name: CT Head Brain wo Cont; Complete Time: 21:19 08/25 19:09 Order name: CT Abd/Pelvis - IV Contrast Only; Complete Time: 21:19 08/25 21:25 Interpretation: Report reviewed. 08/25 19:09 Order name: EKG; Complete Time: 19:09 08/25 23:21 Order name: Regular [facility] 08/25 19:09 Order name: Cardiac monitoring; Complete Time: 20:21 08/25 19:09 Order name: EKG - Nurse/Tech; Complete Time: 20:21 08/25 19:09 Order name: IV Saline Lock; Complete Time: 20:21 08/25 19:09 Order name: Labs collected and sent; Complete Time: 20:21 08/25 19:09 Order name: O2 Per Protocol; Complete Time: 20:21 08/25 19:09 Order name: O2 Sat Monitoring; Complete Time: 20:21 cp EC:23 Rate is 63 beats/min. Rhythm is regular. [place] interval is normal. QRS interval is normal. cp QT interval is normal. T waves are Inverted in lead aVR. Interpreted by me. Reviewed by me. Administered Medications: 21:42 Drug: NS 0.9% IV 250 ml Route: IV; Rate: bolus; Site: right forearm; aa9 21:42 Drug: NS 0.9% IV 250 ml Route: IV; Rate: 75 ml/hr; Site: right forearm; aa9 21:50 Drug: metroNIDAZOLE IVPB 500 mg Volume: 100 ml; Route: IVPB; Infused Over: 30 mins; aa9 Site: right forearm; 22:51 Follow up: Response: No adverse reaction; IV Status: Completed infusion; IV Intake: aa9 100ml 22:58 Drug: Ciprofloxacin IVPB 400 mg Volume: 200 ml; Route: IVPB; Infused Over: 60 mins; aa9 Site: right forearm; Disposition Summary: 08/25/22 21:48 Hospitalization Ordered Hospitalization Status: Inpatient Admission cp Provider: Jeremy Hoffman [facility] cp Condition: Stable cp Problem: new cp Symptoms: have improved cp Bed/Room Type: Standard cp Room Assignment: 410(08/25/22 23:16) mb9 Diagnosis - Indeterminate colitis cp - Diarrhea, unspecified cp - Weakness cp Forms: - Medication Reconciliation Form cp - SBAR form cp Signatures: Dispatcher [employer] EDDeandre Matt MD MD cha Page, Corey, PA PA cp Chinedu Ma RN RN ll1 Awilda Fam RN RN aa9 Isabel Farris RN RN mb9 Corrections: (The following items were deleted from the chart) 23:16 21:48 cp mb9 08/27 00:05 08/26 18:00 Onset: The symptoms/episode began/occurred today, started upon awakening cp and now resolved, cp 08/27 00:06 08/26 18:00 Onset: The symptoms/episode began/occurred today, started upon awakening cp and now resolved. Son reports patient has had increased weakness over past 1 week, cp 08/27 00:09 08/26 18:00 This 86 yrs old Male presents to ER via Ambulatory with complaints of cp Altered Mental Status, Diarrhea. cp 08/27 00:09 08/26 18:00 The patient presents with confusion, cp cp 08/27 00:08/26 18:00 Possible causes: prescribed tramadol and gabapentin for back pain due to cp vertebral fractures, cp 08/27 00:08/26 18:00 Associated signs and symptoms: Pertinent positives: diarrhea, weakness, cp Pertinent negatives: abdominal pain, chest pain, blood in stools, cp 08/27 00:08/26 18:00 Patient's baseline: Neuro: alert and fully oriented, Motor: no deficits, cp Ambulation: walks with assist only, uses walker, Speech: normal, cp 08/27 00:08/26 18:00 Current symptoms: In the emergency department the patient's symptoms cp Patient c/o general weakness, cp 08/27 00:08/26 18:00 Onset: The symptoms/episode began/occurred today, started upon awakening cp from nap this afternoon and now resolved. Son reports patient has had increased weakness over past 1 week, cp 08/27 00:08/26 18:05 Constitutional: Negative for body aches, chills, fever, poor PO intake, cp cp 08/27 00:08/26 18:05 Cardiovascular: Negative for chest pain, edema, palpitations, cp cp 08/27 00:08/26 18:05 Respiratory: Negative for cough, shortness of breath, wheezing, cp cp 08/28 99:08/26 18:05 Abdomen/GI: Positive for diarrhea, Negative for abdominal pain, vomiting, cp constipation, black/tarry stool, rectal bleeding, cp 08/28 99:08/26 18:05 Eyes: Negative for injury, pain, redness, and discharge, cp cp 08/28 99:08/26 18:05 ENT: Negative for drainage from ear(s), ear pain, sore throat, difficulty cp swallowing, difficulty handling secretions, cp 08/28 99:08/26 18:05 Neuro: Positive for weakness, Negative for dizziness, headache, syncope, cp cp 08/28 99:08/26 18:05 : Negative for urinary symptoms, cp cp 08/28 99:08/26 18:05 All other systems are negative, cp cp
--- NOTE | 2022-08-25 21:48 | ER ---
Nurse's Notes [facility] Name: Shyam Brantley Age: 86 yrs Sex: Male : 1935 Arrival Date: 08/25/2022 Time: 17:05 Bed 3 Private MD: Diagnosis: Indeterminate colitis;Diarrhea, unspecified;Weakness Presentation: 08/25 17:20 Chief complaint: Patient states: Has a fractured vertebrae, started taking tramadol and ll1 gabapentin for 1 week. Slowly declining for 1 week. Given mag citrate for constipation, has diarrhea for 2 days. Confusion noted this afternoon after his nap. Family feels like he is dehydrated, frail, weak, and pale. Coronavirus screen: Vaccine status: Patient reports receiving the 2nd dose of the covid vaccine. Client denies travel out of the [place] in the last 14 days. At this time, the client does not indicate any symptoms associated with coronavirus-19. Ebola Screen: Patient denies travel to an Ebola-affected area in the 21 days before illness onset. Initial Sepsis Screen: Does the patient meet any 2 criteria? No. Patient's initial sepsis screen is negative. Does the patient have a suspected source of infection? No. Patient's initial sepsis screen is negative. Risk Assessment: Do you want to hurt yourself or someone else? Patient reports no desire to harm self or others. Onset of symptoms was August 18, 2022. 17:20 Method Of Arrival: Ambulatory ll1 17:20 Acuity: ZURI 3 ll1 Historical: - Allergies: 17:25 PENICILLINS; ll1 - PMHx: 17:25 High Cholesterol; ll1 - PSHx: 17:25 cardiac stents; Double Bypass; hernia repair; ll1 - Immunization history:: Client reports receiving the 2nd dose of the Covid vaccine. - Social history:: Smoking status: Patient denies any tobacco usage or history of. Screenin:18 [facility] ED Fall Risk Assessment (Adult) History of falling in the last 3 months, aa9 including since admission No falls in past 3 months (0 pts) Confusion or Disorientation No (0 pts) Intoxicated or Sedated No (0 pts) Impaired Gait Yes (1 pt) Mobility Assist Device Used Yes (1 pt) Altered Elimination No (0 pt) Score/Fall Risk Level 3 or more points = High Risk Oriented to surroundings, Maintained a safe environment, Educated pt \T\ family on fall prevention, incl call for assistance when getting out of bed. Abuse screen: Denies threats or abuse. Denies injuries from another. Nutritional screening: No deficits noted. Tuberculosis screening: No symptoms or risk factors identified. Assessment: 20:21 General: Appears in no apparent distress. comfortable, slender, Behavior is calm, aa9 cooperative. Pain: Denies pain. Neuro: Level of Consciousness is awake, alert, obeys commands, Oriented to person, place, time, situation. Cardiovascular: Denies chest pain. Respiratory: Airway is patent Respiratory effort is even, unlabored. Respiratory: Denies cough, shortness of breath. GI: No signs and/or symptoms were reported involving the gastrointestinal system. Derm: Skin is intact, is thin, Skin is dry. 22:23 Reassessment: Patient appears in no apparent distress at this time. Patient is alert, aa9 oriented x 3, equal unlabored respirations, skin warm/dry/pink. Patient denies pain at this time. 23:16 Reassessment: Patient appears in no apparent distress at this time. [phone] Mila aa9 Fercho, daughter in law. 23:42 Reassessment: Patient appears in no apparent distress at this time. report provided to aa9 receiving nurse. Vital Signs: 17:20 BP 133 / 70; Pulse 70; Resp 16; Temp 98.9; Pulse Ox 97% on R/A; Weight 65.32 kg; Height ll1 5 ft. 7 in. ; Pain 5/10; 20:30 BP 146 / 81; Pulse 64; Resp 19 S; Pulse Ox 96% on R/A; aa9 21:32 BP 143 / 61; Pulse 55; Resp 17 S; Pulse Ox 99% on R/A; aa9 23:00 BP 124 / 68; Pulse 55; Resp 17 S; Pulse Ox 95% on R/A; aa9 17:20 Body Mass Index 22.55 (65.32 kg, 170.18 cm) ll1 17:20 Pain Scale: Adult ll1 ED Course: 17:05 Patient arrived in ED. am2 17:20 Deandre Haider PA is PHCP. cp 17:20 Dedrick Mcnamara DO is Attending Physician. cp 17:25 Triage completed. ll1 17:26 Arm band placed on. ll1 17:41 Attending Physician role handed off by Dedrick Mcnamara DO micheline 17:41 Deandre Portillo MD is Attending Physician. micheline 19:22 Lucien Vasquez, RN is Primary Nurse. as6 20:00 Radiology exam delayed due to lab results not completed at this time. IV insertion [id number] attempt and/or patient not having appropriate IV at this time. 20:06 XRAY Chest (1 view) In Process Unspecified. EDMS 20:15 Inserted saline lock: 20 gauge in right forearm, using aseptic technique. Blood aa9 collected. 20:20 COVID-19/FLU A+B Sent. aa9 20:20 Blood Culture Adult (2) Sent. aa9 20:20 Lactate w/ 2H reflex if indic. Sent. aa9 20:58 CT Head Brain wo Cont In Process Unspecified. EDMS 20:58 CT Abd/Pelvis - IV Contrast Only In Process Unspecified. EDMS 21:28 Primary Nurse role handed off by Lucien Vasquez, SEJAL aa9 21:28 Awilda Fam, SEJAL is Primary Nurse. aa9 21:47 Jeremy Hoffman MD is Hospitalizing Provider. cp 23:18 Patient has correct armband on for positive identification. Bed in low position. Call aa9 light in reach. Side rails up X2. Client placed on continuous cardiac and pulse oximetry monitoring. NIBP monitoring applied. 23:18 No provider procedures requiring assistance completed. aa9 03 00:23 Patient admitted, IV remains in place. aa9 Administered Medications: 08/25 21:42 Drug: NS 0.9% IV 250 ml Route: IV; Rate: bolus; Site: right forearm; aa9 21:42 Drug: NS 0.9% IV 250 ml Route: IV; Rate: 75 ml/hr; Site: right forearm; aa9 21:50 Drug: metroNIDAZOLE IVPB 500 mg Volume: 100 ml; Route: IVPB; Infused Over: 30 mins; aa9 Site: right forearm; 22:51 Follow up: Response: No adverse reaction; IV Status: Completed infusion; IV Intake: aa9 100ml 22:58 Drug: Ciprofloxacin IVPB 400 mg Volume: 200 ml; Route: IVPB; Infused Over: 60 mins; aa9 Site: right forearm; Medication: 23:18 VIS not applicable for this client. aa9 Intake: 22:51 IV: 100ml; Total: 100ml. aa9 Outcome: 21:48 Decision to Hospitalize by Provider. cp 23:19 Condition: stable aa9 08/26 00:22 Admitted to Med/surg accompanied by tech, via stretcher, with chart. aa9 Instructed on the need for admit. 00:25 Patient left the ED. aa9 Signatures: Dispatcher [employer] EDMS Deandre Portillo MD MD cha Page, Corey, PA ROBIN cp Neisha Rios am2 Chinedu Ma, RN RN ll1 Lucien Vasquez RN RN as6 Awilda Fam RN RN aa9 Letty Cornelius0
[2022-08-25] MEDS ORDERED: METRONIDAZOLE 500mg IVPB 500 MG/100 ML BAG IV ONE (22:05)
[2022-08-25] MEDS ORDERED: CIPROFLOXACIN 400mg IV 400 MG/200 ML BAG IV ONE (22:05)
[2022-08-25] MEDS ORDERED: NA CHLORIDE 0.9% 500 ML ONE (22:05)
[2022-08-25] MEDS ORDERED: ACETAMINOPHEN 500 MG TAB PO PRN (23:08)
[2022-08-25] MEDS ORDERED: ONDANSETRON 4 MG/2 ML VIAL IV PRN (23:08)
[2022-08-25] MEDS ORDERED: D5 0.45 NS 1,000 ML IV SCH (23:45)
[2022-08-26] MEDS: METRONIDAZOLE 500mg IVPB 500 MG/100 ML BAG IV SCH ×2 (00:21→09:09)
[2022-08-26] MEDS: NA CHLORIDE 0.9% 1,000 ML IV SCH ×2 (00:23→13:05)
[2022-08-26 00:49] VITALS: O2SAT 95
[2022-08-26 01:15] VITALS: BMI 23.3
[2022-08-26] MEDS ORDERED: GABAPENTIN 100 MG CAP ONE (01:49)
[2022-08-26 06:12] LABS: Absolute Lymphocytes (CBC) 0.8 K/uL (0.7-4.9); Hematocrit 25.2 % (39.6-49.0); Lymphocytes % 15.3 % (15.3-44.8); MCV 93.1 fL (80-100); MPV 9.4 fL (7.6-11.3)
[2022-08-26 06:22] LABS: Albumin 2.2 g/dL (3.4-5.0); Bilirubin Direct 0.1 mg/dL (0-0.2); Bilirubin Total 0.3 mg/dL (0.2-1.0); Potassium 3.4 mEq/L (3.5-5.1); Protein, Total 7.3 g/dL (6.4-8.2)
[2022-08-26 08:07] VITALS: BP 141/66; TEMP 97.4
[2022-08-26] MEDS ORDERED: CIPROFLOXACIN 400mg IV 400 MG/200 ML BAG IV SCH (09:00)
[2022-08-26] MEDS: GABAPENTIN 100 MG CAP PO SCH ×2 (09:00→14:00)
--- NOTE | 2022-08-26 12:25 | EKG ---
Test Date: 2022-08-25 Test Time: 20:15:46 Cryogenics Repairer: MEASUREMENT RESULTS: Intervals: Rate: 63 AK: 176 QRSD: 80 QT: 392 QTc: 401 [place]: P: 54 AK: 176 QRS: 8 T: 38 INTERPRETIVE STATEMENTS: Normal sinus rhythm Normal ECG Compared to ECG 05/21/2021 16:59:50 Sinus bradycardia no longer present Electronically Signed On 08-26-22 12:22:59 CDT by Diaz Wheeler
--- NOTE | 2022-08-26 12:59 | P.SSS ---
Patient History Date of Service: 08/26/22 Reason for admission: CONFUSION, HALLUICANATIONS History of Present Illness: JOSÉ HAS SEVERE BACK ISSUES FROM SPINE FRACTURE. HE WAS TO HAVE KYPHOPLASTY SOON BUT WITH TRAMADOL AND GABAPENTIN HE GOT CONFUSED AND HALLUICINATED AT THE SAME TIME FAMILY GAVE HIM MAG CITRATE GOOD DOSE FOR CONSTIPATION AND HE HAS DIARRHEA FROM IT. HE IS STABLE. HE SAYS HE HAS NO PAIN ANY LONGER, HE NEVER HAD ABDOMEN PAIN OR FEVER. I TALKED TO SON. HIS LAB REPORT AT OFFICE SHOWS MONOCLONAL PROTEIN. I WILL DISCUSS WITH THEM ON THURSDAY. HE IS STABLE FOR DISCHARGE LONG MRI SHOWS NO MAJOR FINDINGS. HIS CT SCAN SHOWS COLITIS BUT I SUSPECT IT IS FROM MAG CITRATE IT IS A VERY HARSH CONSTIPATION MEDICINE. I TALKED WITH SON ABOUT ALL ABOVE. Allergies Penicillins Allergy (Intermediate, Verified 08/23/20 15:49) Rash Home Medications: Atorvastatin Calcium [Lipitor] 80 mg PO BEDTIME #30 tablet 04/24/20 Clopidogrel Bisulfate [Plavix*] 75 mg PO DAILY #30 tablet 04/24/20 metroNIDAZOLE [Flagyl*] 500 mg PO Q8H #21 08/26/22 - Past Medical/Surgical History Has patient received pneumonia vaccine in the past: No Diabetic: No -: high cholesterol -: back pain -: prostate problem -: TURP -: Abdominal hernia repair -: Umbilical hernia repair -: cardiac stents -: double bypass - Social History Smoking Status: Never smoker Alcohol use: No CD- Drugs: No Caffeine use: Yes Place of Residence: Home Physical Examination - Vital Signs Temperature: 97.4 F Blood Pressure: 141/66 Pulse: 68 Respirations: 16 Pulse Ox (%): 95 - Physical Exam General: Alert, In no apparent distress HEENT: Atraumatic, PERRLA, Mucous membr. moist/pink, EOMI, Sclerae nonicteric Neck: Supple, 2+ carotid pulse no bruit, No LAD, Without JVD or thyroid abnormality Respiratory: Clear to auscultation bilaterally, Normal air movement Cardiovascular: Regular rate/rhythm, Normal S1 S2 Gastrointestinal: Normal bowel sounds, No tenderness Musculoskeletal: No tenderness Integumentary: No rashes Neurological: Normal gait, Normal speech, Normal strength at 5/5 x4 extr, Normal tone, Normal affect Lymphatics: No axilla or inguinal lymphadenopathy - Studies Laboratory Data (last 24 hrs) 08/25/22 20:05: PT 13.5 H, INR 1.23 08/25/22 20:05: WBC 7.40, Hgb 10.1 L, Hct 30.3 L, Plt Count 194 08/25/22 20:05: Sodium 133 L, Potassium 4.6, BUN 29 H, Creatinine 1.08, Glucose 116 H, Magnesium 2.7 H, Total Bilirubin 0.6, AST 31, ALT 24, Alkaline Phosphatase 109 - Diagnosis (Problem(s)) (1) Altered mental state Current Visit: Yes Status: Acute Plan: REALTED TO TRAMADOL STOP MEDS NOW. HIS PAIN IS GONE THIS MAY BE FROM JUST TIME. I TOLD FAMILY THAT IF PAIN IS GONE HE DOES NOT NEED KYPHOPLASTY. Qualifiers: Altered mental status type: disorientation Qualified Code(s): R41.0 - Disorientation, unspecified (2) Colitis Current Visit: Yes Status: Acute Plan: POSSIBLE FROM MAGCITARTE HE HAS NO SYMPTOMS. 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 MYELOMA THAT NEEDS TO BE FOLLOWED BY [facility] BL[facility]CHER [facility]. - Disposition Disposition: ROUTINE DISCHARGE Condition: SERIOUS
--- NOTE | 2022-08-26 14:21 | RAD REPORT ---
EXAM DESCRIPTION: MRI - Brain Wo Cont - 08/26/2022 12:10 pm CLINICAL HISTORY: confusion COMPARISON: Head Brain Wo Cont dated 08/25/2022 TECHNIQUE: Sagittal T1-weighted images were obtained along with PD/heavily T2-weighted and T2-FLAIR images. Axial DWI and ADC mapping sequences were also obtained along with coronal heavily T2-weighted images were obtained. FINDINGS: No intracranial hemorrhage, mass or acute infarction. There is no edema or shift of midlin e structures. No extra-axial fluid collections. Signal voids are seen as a normal finding in the joseluis r intracranial vessels. Mild chronic small vessel ischemic changes. Cerebral atrophy which is mild a ge advanced. Mastoid air cells and paranasal sinuses are clear. IMPRESSION: No acute intracranial abnormality. Specifically, no evidence of acute infarct. Mild computer systems integrator trinh small vessel ischemic changes.
== END 2022-08-26 15:28 | disposition home or self-care (01) | DRG 393 ==
LOC: ER 16:53 → 4TH 23:33
PROVIDERS: ADMIT Internal Medicine; ATTEND Internal Medicine
DX: K52.1 Toxic gastroenteritis and colitis (principal); G92.8 Other toxic encephalopathy; D64.9 Anemia, unspecified; D47.2 Monoclonal gammopathy; T47.4X5A Adverse effect of other laxatives, initial encounter; T40.425A Adverse effect of tramadol, initial encounter; Z88.0 Allergy status to penicillin; Z95.5 Presence of coronary angioplasty implant and graft; Z95.1 Presence of aortocoronary bypass graft; Z79.02 Long term (current) use of antithrombotics/antiplatelets; Z79.899 Other long term (current) drug therapy; Z20.822 Contact with and (suspected) exposure to COVID-19
CPT/HCPCS: 0240U; 36415; 70450; 70551; 71045; 74177; 80048; 80076; 81001; 82565; 83605; 83690; 83735; 84484; 85025; 85610; 87040; 93005; 96365; 96375; 97161; 99285; J0744; J7030; J7050; Q9967